=== PATIENT | female | born 1965 | race Caucasian/White ===

== ENCOUNTER 2021-03-07 08:10 | Emergency (ER) | payer MEDICARE, MEDICAID ==
[~2021-03-07] VITALS: Ht 160 cm; Wt 65.0 kg
--- NOTE | 2021-03-07 08:55 | ED Lower Extremity ---
General Chief Complaint: Lower Extremity Stated Complaint: FELL Nursing Triage Note: PT CO OF FALL SATURDAY AND L KNEE INJURY, STATES KNEE GOES OUT FEEL PAINFUL AND TIGHT Source: patient Exam Limitations: no limitations (EARNEST DISLA STUDENT) History of Present Illness Date Seen by Provider: Mar 07, 2021 Time Seen by Provider: 08:30 Initial Comments Pt presents to ED via private conveyance with complaints of L knee pain. She states that she slipped and fell at home 4 days ago and described twisting her LLE with her L foot moving medially with her knee moving laterally. Denies LOC, hitting her head, lightheadedness/fainting. She has been taking Acetaminophen 1000mg Q6 and applying CBD oil with minimal relief. She started experiencing knee locking since yesterday. She has been able to bear weight and ambulate w/o assistance. Rates her pain 6/10 to her lateral L knee, denies radiation. Denies chest pain, SOB, N/V, fevers/chills. Onset: other (4 days ago, Saturday03/04/21) Severity: moderate Pain/Injury Location: left knee Method of Injury: fell Modifying Factors: Worse With Movement; Improves With Pain Medication, Improves With Other (CBD oil) (EARNEST DISLA STUDENT) Allergies and Home Medications Allergies Coded Allergies: Penicillins (Verified Allergy, Unknown, 03/07/21) Sulfa (Sulfonamide Antibiotics) (Verified Allergy, Unknown, 03/07/21) acetaminophen (Verified Allergy, Unknown, 03/07/21) codeine (Verified Allergy, Unknown, 03/07/21) erythromycin base (Verified Allergy, Unknown, 03/07/21) meperidine (Verified Allergy, Unknown, 03/07/21) oxycodone (Verified Allergy, Unknown, 03/07/21) propoxyphene (Verified Allergy, Unknown, 03/07/21) Patient Home Medication List Home Medication List Reviewed: Yes (EARNEST DISLA STUDENT) Review of Systems Constitutional: No chills, No fever EENTM: No hearing loss, No vision loss Respiratory: No cough, No hemoptysis, No short of breath Cardiovascular: No chest pain, No edema Gastrointestinal: No abdominal pain, No constipation, No diarrhea Genitourinary: No dysuria, No frequency, No hematuria Musculoskeletal: No back pain; joint pain (L lateral knee); No joint swelling Skin: No change in color, No change in hair/nails (EARNEST DISLA RAJENDRA STUDENT) All Other Systems Reviewed Negative Unless Noted: Yes (EARNEST DISLA eVestment STUDENT) Past Djpdfhi-Qikssq-Qpnhqu Hx Patient Social History Tobacco Use?: Yes Tobacco type used: Cigarettes Smoking Status: Current Everyday Smoker Substance use?: No Alcohol Use?: Yes Alcohol Frequency: Rarely (EARNEST DISLA STUDENT) Immunizations Up To Date COVID19 Vaccine 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 oz. kg; 25.00 BMI Method: General Appearance: WD/WN, no apparent distress HEENT: PERRL/EOMI, normal ENT inspection, pharynx normal Neck: non-tender, full range of motion, supple, normal inspection Cardiovascular: normal peripheral pulses, regular rate, rhythm, no edema, no murmur Respiratory: chest non-tender, lungs clear, normal breath sounds, no respiratory distress, no accessory muscle use Gastrointestinal: normal bowel sounds, non tender, soft Back: normal inspection, no CVA tenderness, no vertebral tenderness Hips: bilateral hip non-tender, bilateral hip normal inspection, bilateral hip normal range of motion, bilateral hip no evidence of injury Legs: bilateral leg non-tender, bilateral leg normal inspection, bilateral leg normal range of motion, bilateral leg no evidence of injury Knees: right knee non-tender, right knee normal inspection, right knee normal range of motion, right knee no evidence of injury; left knee bone tenderness (mild tenderness to patella), left knee pain, left knee soft tissue tenderness Ankles: bilateral ankle non-tender, bilateral ankle normal inspection, bilateral ankle normal range of motion, bilateral ankle no evidence of injury Feet: bilateral foot non-tender, bilateral foot normal inspection, bilateral foot normal range of motion, bilateral foot no evidence of injury Neurologic/Tendon: normal sensation, normal motor functions, normal tendon functions, responds to pain, withdraws to pain (L lateral knee tenderness) Neurologic/Psychiatric: no motor/sensory deficits, alert, normal mood/affect, oriented x 3 Skin: normal color, warm/dry Lymphatic: no adenopathy (EARNEST DISLA MED STUDENT) Progress/Results/Core Measures Results/Orders My Orders Orders - JULITO KHAN Knee, Left, 3 Views (03/07/21 08:49) (JULITO KHAN) Vital Signs/I&O 03/07/21 08:25 Temp 36.2 Pulse 71 Resp 18 B/P (MAP) 117/89 (98) (JULITO KHAN) Blood Pressure Mean: 98 Progress Progress Note : Time: 10:33 Progress Note Unable to do a comprehensive knee exam but she does seem to have a little tenderness on her lateral left knee possibly consistent with a partial sprain. She was able to walk and on it. We will do some compression ice elevation and plain films. I attest that I saw this patient alongside the medical student and agree with his documented history, physical exam and review of systems except as otherwise noted. (JULITO KHAN) Diagnostic Imaging Diagonstic Imaging: Xray Plain Films/CT/US/NM/MRI: knee (left) Comments [facility], [place] NAME: VENICE AYALA [facility] REC#: [id number] PT STATUS: REG ER : 1965 PHYSICIAN: JULITO KHAN MD ADMIT DATE: 03/07/21/ER Draft Date of Exam:03/07/21 KNEE, LEFT, 3 VIEWS INDICATION: Left knee pain post fall times approximately 3 days ago. TECHNIQUE: 3 views of the left knee CORRELATION STUDY: None FINDINGS: The joint spaces are maintained. The articular surfaces are smooth and preserved. There is no acute bony abnormality. Soft tissues are unremarkable. IMPRESSION: 1. Negative for acute bony abnormality of the knee. Dictated on workstation # [id number] Dict: 03/07/21920 Trans: 03/07/21921 DO [id number] Interpreted by: PAKO SHARIF DO Electronically signed by: Reviewed: Reviewed by Me (JULITO KHAN) Departure Impression Primary Impression: Sprain of knee Qualified Codes: S83.422A - Sprain of lateral collateral ligament of left knee, initial encounter Disposition: HOME, SELF-CARE Condition: Stable Departure-Patient Inst. Decision time for Depature: 10:35 (JULITO KHAN) Referrals: NO,LOCAL PHYSICIAN (PCP) Primary Care Physician HEATHER TATUM MD Patient Instructions: Knee Sprain (DC), LOCAL PHYSICIAN LIST Add. Discharge Instructions: Use an Pantera bandage or neoprene knee sleeve for compression of your knee to reduce swelling and pain. Ice can be helpful for swelling and pain. Elevating your leg above the level of your heart can also reduce swelling and pain. Continue to bear weight on it as tolerable. Call and follow-up with Dr. TATUM, orthopedic surgery for continued management of your knee pain. I also highly encourage you to follow-up with a primary care doctor. Ibuprofen 800 mg every 8 hours as necessary for pain in your knee. Tylenol 1000 mg every 8 hours as necessary for pain. Topical creams such as icy hot or Biofreeze can also be helpful. All discharge instructions reviewed with patient and/or family. Voiced understanding. Copy Copies To 1: HEATHER TATUM MD, JOHNNY MED STUDENT Mar 07, 2021 08:55 JULITO KHAN Mar 07, 2021 10:36
--- NOTE | 2021-03-07 09:22 | Diagnostic Imaging Report ---
INDICATION: Left knee pain post fall times approximately 3 days ago. TECHNIQUE: 3 views of the left knee CORRELATION STUDY: None FINDINGS: The joint spaces are maintained. The articular surfaces are smooth and preserved. There is no acute bony abnormality. Soft tissues are unremarkable. IMPRESSION: 1. Negative for acute bony abnormality of the knee. Dictated by: Dictated on workstation # [id number]
[2021-03-07 10:45] VITALS: BP 117/89
--- OUTSIDE RECORDS SUMMARY | 2021-03-07 12:42 | XMS REPORT | Clinical Summary ---
Author Author [facility]– [place] Address Unknown Phone Unavailable Care Team Providers Care Warehouse Operations Manager Name Role Phone PCP Unavailable Allergies Comments Active Allergy Reactions Severity Noted Date Cephalexin Rash Low 02/10/2015 Codeine Itching 02/10/2015 Meperidine Itching 02/09/2015 Oxycodone Itching 02/10/2015 Penicillins Itching 02/09/2015 Propoxyphene Itching 02/10/2015 rhabdomyelosis Quetiapine Anaphylaxis High 02/09/2015 Sulfa Antibiotics Itching 02/09/2015 Medications End Date Status Medication Sig Dispensed Refills Start Date Active multivitamin w/minerals Take 1 tablet 0 (CENTRUM) TABS by mouth daily. Active metformin (GLUCOPHAGE) Take 1,000 mg 0 1000 MG tablet by mouth 2 (two) times daily with meals. Active topiramate (TOPAMAX) 100 Take 50 mg by 0 MG tablet mouth 2 (two) times daily. Active rOPINIRole (REQUIP) 1 MG Take 4 mg by 0 tablet mouth daily. Active atenolol (TENORMIN) 100 Take 100 mg 0 MG tablet by mouth daily. Active gabapentin (NEURONTIN) Take 800 mg 0 400 MG capsule by mouth 3 (three) times daily. Active omeprazole (PRILOSEC) 20 Take 20 mg by 0 MG capsule mouth daily. Active aspirin 81 MG EC tablet Take 81 mg by 0 mouth daily. Active lisinopril Take 40 mg by 0 (PRINIVIL,ZESTRIL) 40 MG mouth daily. tablet Active amLODIPine (NORVASC) 5 MG Take 5 mg by 0 tablet mouth 2 (two) times daily. Active albuterol (PROAIR, Inhale 2 0 PROVENTIL, VENTOLIN) 108 puffs into (90 BASE) MCG/ACT inhaler the lungs every 6 (six) hours as needed for Wheezing. Active duloxetine (CYMBALTA) 60 Take 120 mg 0 MG capsule by mouth daily. Active atorvastatin (LIPITOR) 20 Take 20 mg by 0 MG tablet mouth daily. Active zolpidem (AMBIEN) 10 MG Take 10 mg by 0 tablet mouth nightly as needed for Sleep. Active nitroglycerin Place 0.4 mg 0 (NITROQUICK) 0.4 MG SL under the tablet tongue every 5 (five) minutes as needed for Chest pain. Active traMADol (ULTRAM) 50 MG Take 50 mg by 0 tablet mouth 2 (two) times daily. Active hydrOXYzine (ATARAX) 25 Take 1 tablet 90 tablet 0 02/14/201 MG tabletIndications: (25 mg total) 5 Anxiety Neurosis by mouth 3 (Inactive) (three) times daily as needed for Anxiety. Indications: Anxiety Neurosis Active lurasidone 60 MG Take 60 mg by 30 tablet 0 01 TABSIndications: mouth Daily 5 Depressive Phase Bipolar At 1700. Mood Disorder Indications: Depressive Phase of Manic-Depress ion Active potassium chloride Take 1 tablet 14 tablet 0 02/14 (K-DUR,KLOR-CON) 10 MEQ (10 mEq 5 tabletIndications: total) by Hypokalemia mouth 2 (two) times daily. Indications: Low Amount of Potassium in the Blood Active traZODone (DESYREL) 100 Take 1 tablet 30 tablet 0 201 MG tabletIndications: (100 mg 5 Insomnia total) by mouth nightly. Indications: Trouble Sleeping Active Problems Problem Noted Date Bipolar I disorder, most recent episode (or current) depressed, severe, 02/10/2015 without mention of psychotic behavior Resolved Problems Problem Noted Date Resolved Date Suicidal ideation 02/10/2015 02/14/2015 Immunizations Name Administration Dates Next Due Influenza IIV3 PFree 04/03/2014 Pneumococcal Conjugate 04/03/2013 (7-valent) -[facility] Registry Family History Medical History Relation Name Comments Depression Daughter Thyroid disease Daughter No Known Problems Father Depression Mother No Known Problems Son Relation Name Status Comments Daughter Alive Father Alive Mother Alive Son Alive Social History Date Tobacco Use Types Packs/Day Years Used Current Every Day Smoker Cigarettes 1 Smokeless Tobacco: Never Used Comments Alcohol Use Standard Drinks/Week No 0 (1 standard drink = 0.6 o z pure alcohol) Control Partners Comments Sexually Active Never Sex Assigned at Date Recorded Not on file Last Filed Vital Signs Reading Time Taken Comments Vital Sign 119/78 02/14/2015 8:20 AM CDT Blood Pressure 62 02/14/2015 8:19 AM CDT Pulse 36.9 C (98.4 F) 02/14/2015 8:19 AM CDT Temperature 16 02/14/2015 8:19 AM CDT Respiratory Rate 98% 02/14/2015 8:19 AM CDT Oxygen Saturation - - Inhaled Oxygen Concentration 93 kg (205 lb) 02/09/2015 10:23 PM CDT Weight 160 cm (5' 3") 02/09/2015 10:23 PM CDT Height 36.31 02/09/2015 10:23 PM CDT Body Mass Index Plan of Treatment Health Maintenance Due Date Last Done Comments COVID-19 Vaccine (1) 1976 Annual Wellness Visit 1982 Hepatitis C Screening 1982 DTaP,Tdap,and Td Vaccines 1983 (1 - Tdap) MMR Vaccines-Adult 1983 Cervical Cancer Screening 1985 Breast Cancer 2014 Screening-Mammogram Colon Cancer Screening 2014 Zoster Vaccine (1 of 2) 2014 Influenza Vaccine (#1) 2021 04/03/2014 Pneumo-Vaccine: 65+Yrs (1 2029 of 1 - PPSV23) Pneumo-Vaccine: Peds (0-5 Aged Out 04/03/2013 No l onger eligible based on patient's age to Yrs) & At-Risk Patients complete this topic (6-64 Yrs) HIB Vaccines Aged Out No longer eligible based on patient's age to complete this topic IPV Vaccines Aged Out No longer eligible based on patient's age to complete this topic Meningococcal Vaccine Aged Out No longer eligib le based on patient's age to complete this topic Rotavirus Vaccines Aged Out No longer eligible based on patient's age to complete this topic Results Not on filefrom Last 3 Months Insurance Type Payer Benefit Subscriber ID Effective Phone Address Plan / Dates Group Medicare MEDICARE MEDICARE [id number] 2010- [address] [place] [address] [employer] K[employer] 19 [id number] 2015- [address] [employer] Present [address] [place] [address] Advance Directives For more information, please contact: [phone] Date Inactivated Comments Code Status Date Activated Full Code 02/14/2015 9:51 AM 02/14/2015 9:51 AM Full Code 02/09/2015 11:37 PM
--- OUTSIDE RECORDS SUMMARY | 2021-03-07 12:43 | XMS REPORT | Clinical Summary ---
Author Author [facility] Organization [facility] Address Unknown Phone Unavailable Care Team Providers Care Cab Supervisor Name Role Phone BenVinny baca PCP Mamta Macdonald PA-C Unavailable Lars Guerrero MD Unavailable Source Comments Some departments are not documenting in the electronic medical record. If you d o not see the information that you expected, contact Release of Information in [facility] Advise Only Information Management department at [phone] for further assistan ce in locating additional records.[facility] Allergies Comments Active Allergy Reactions Severity Noted Date Amlodipine EDEMA Medium 03/24/2020 Codeine ITCHING Low 03/24/2020 Propoxyphene ITCHING Low 03/24/2020 Meperidine ITCHING Low 03/24/2020 Erythra-Derm ITCHING Low 03/24/2020 Erythromycin NAUSEA AND Low 10/31/2020 VOMITING Cephalexin ITCHING Low 03/24/2020 Oxycodone ITCHING Low 03/24/2020 Penicillins ITCHING Low 03/24/2020 Makes mouth raw Pineapple SEE COMMENTS Low 10/20/2020 Pregabalin EDEMA Medium 03/24/2020 Sulfa (Sulfonamide RASH Medium 03/24/2020 Antibiotics) Oxycodone-Acetaminophen ITCHING Low 2019 Medications End Date Status Medication Sig Dispensed Refills Start Date Active aspirin 81 mg chewable Chew 81 mg by 0 tablet mouth daily. Take with food. Active Rc-P2-Xiy-Wftj-Rst-Iddi-B Take by 0 or [phone] mouth. qq-qhvh-th-mg tab Active clonazePAM (KLONOPIN) 1 Take 1 mg by 0 mg tablet mouth twice daily as needed. Active lamoTRIgine (LAMICTAL) Take 300 mg 0 150 mg tablet by mouth daily. Active vitamins, multiple cap Take 1 0 capsule by mouth daily. Active traZODone (DESYREL) 150 Take 300 mg 0 mg tablet by mouth at bedtime daily. Active topiramate (TOPAMAX) 100 Take one 180 tablet 3 1 mg tablet tablet by 0 mouth twice daily. Active atorvastatin (LIPITOR) 10 Take one 90 tablet 3 mg tablet tablet by 1 mouth at bedtime daily. Active meloxicam (MOBIC) 15 mg Take one 90 tablet 3 tablet tablet by 1 mouth daily. Active fluoxetine HCl Take 40 mg by 0 (FLUOXETINE PO) mouth daily. Active rOPINIRole (REQUIP) 3 mg TAKE 1 TABLET 90 tablet 3 tablet BY MOUTH 1 DAILY AT BEDTIME Active metFORMIN (GLUCOPHAGE) TAKE 1 TABLET 180 tablet 1 0 1,000 mg tablet BY MOUTH 1 TWICE DAILY WITH MEALS Active lisinopriL (ZESTRIL) 2.5 Take one 90 tablet 3 0 mg tabletIndications: tablet by 1 hypertension mouth daily. Indications: high blood pressure Active potassium chloride Take two 270 capsule 3 10/18/ 02 (MICRO-K) 10 mEq capsule capsules by 1 mouth three times daily. Take with a meal and a full glass of water. Active vit A/C/E ac/ZnOx/cupric Take by 0 oxide (EYE VITAMIN AND mouth. MINERALS PO) Active ascorbic acid (VITAMIN C Take 1,000 mg 0 PO) by mouth. Active metoprolol XL (TOPROL XL) TAKE 1 TABLET 90 tablet 3 50 mg extended release BY MOUTH 1 tablet EVERY DAY Active pantoprazole DR TAKE 1 TABLET 180 tablet 0 01/18/20 2 (PROTONIX) 40 mg tablet BY MOUTH 1 TWICE DAILY FOR GERD Active cariprazine (VRAYLAR) 1.5 Take 1.5 mg 0 mg cap by mouth three times weekly. Active Problems Problem Noted Date Easy bruising 02/03/2021 Last Assessment & Plan: Formatting of this note might be differ ent from the original. She complained briefly of easy bruising so I am ordering a CBC. Gastritis and duodenitis 10/31/2020 Diverticulosis large intestine w/o perforation or abs cess w/o bleeding 10/31/2020 Ingrown toenail of right foot 10/28/2020 Last Assessment & Plan: Formatting of this note might be differ ent from the original. She complains that her great toenail on the right foot seems to be growing inward, causing discomfort. There is n o swelling or erythema so I do not think there is actually a fully ingrown toenail but I did recommend evaluation by podiatry. She has seen Salvador Booker in the past and will call to schedule follow-up. Poor appetite 10/20/2020 Early satiety 10/20/2020 History of esophagitis 10/20/2020 Irritable bowel syndrome with both constipation and d iarrhea 10/20/2020 Umbilical hernia without obstruction and without gang gallito 10/20/2020 Hepatic steatosis 10/20/2020 Acute bilateral low back pain with bilateral sciatica 10/03/2020 Last Assessment & Plan: Formatting of this note might be differ ent from the original. Back pain is largely resolved. She is doing excellent. Osteopenia of neck of left femur 07/29/2020 Overview: Formatting of this note might be differ ent from the original. Due for repeat 04/2021 L ast Assessment & Plan: Formatting of this note might be differ ent from the original. She will be due for DEXA scan later on this year. I will order at a later date. GERD without esophagitis 07/29/2020 Last Assessment & Plan: Formatting of this note might be differ ent from the original. I am increasing pantoprazole to twice d aily. If her symptoms do not improve she will need referral for repe at endoscopy. Epigastric pain 07/29/2020 Last Assessment & Plan: Formatting of this note might be differ ent from the original. I recommended that she try decreasing p antoprazole to daily and see how she does. Seasonal allergic rhinitis due to pollen 03/24/2020 Last Assessment & Plan: Formatting of this note might be differ ent from the original. Start flonase nasal spray and zyrtec ov er the counter according to package directions. Follow up if symptoms pers ist or worsen. Essential hypertension Last Assessment & Plan: Formatting of this note might be differ ent from the original. Blood pressure looks great. Type 2 diabetes mellitus without compli cation Last Assessment & Plan: Formatting of this note might be differ ent from the original. She is under excellent control. I did recommend that she begin checking an occasional blood sugar to make sure santiago t her blood sugars do not spike up. I think she will likely do fine off of the Ozempic. Mixed hyperlipidemia Last Assessment & Plan: Formatting of this note might be differ ent from the original. Cholesterol looks good on today's lab. Resolved Problems Problem Noted Date Resolved Date Abdominal pain, generalized 10/20/2020 02/03/2021 Weight loss, unintentional 10/03/2020 02/03/2021 Last Assessment & Plan: Formatting of this note might be differ ent from the original. Her Ozempic certainly could be contribu ting to her weight loss, and her A1c does not necessarily need to be 5.3. A s mentioned above, if her A1c is still very good then I will decrease Oz empic down to 0.5 mg weekly. Viral syndrome 08/12/2020 10/03/2020 Suspected COVID-19 virus infection 08/10/2020 Last Assessment & Plan: Formatting of this note might be differ ent from the original. I am ordering a COVID-19 test. I did r ecommend that she try Zyrtec-D or similar for ear pain, which is likely d ue to to eustachian tube dysfunction. Nausea 08/10/2020 10/03/2020 Last Assessment & Plan: Formatting of this note might be differ ent from the original. I am sending a prescription for antieme tic. Hypotension 06/12/2020 07/28/2020 Impacted cerumen, right ear 04/08/2020 02/03/2021 Imbalance 03/24/2020 10/03/2020 Overview: Formatting of this note might be differ ent from the original. Possibly related to medications L ast Assessment & Plan: Formatting of this note might be differ ent from the original. Improved with changes in medications. Anemia 07/28/2020 Encounters Care Team Description Date Type Specialty Vinny Poon DO 02/03/2021 Hospital Lab Encounter Vinny Poon, Type 2 diabetes mellitus without complic ation, without long-term current use of insulin (HCC) (Primary Dx); Essential hypertension; Mixed hyperlipidemia; Epigastric pain; Easy bruising; Acute bilateral low back pain with bilateral sciatica 02/03/2021 Office Visit Family Medicine 02/03/2021 Travel Vinny Poon, DO 01/24/2021 Hospital Lab Encounter 01/24/2021 Travel Vinny Poon, DO 01/17/2021 Refill Family Medicine Vinny oPon, DO 01/16/2021 Refill Family Medicine Vinny Poon, DO 01/15/2021 Refill Family Medicine Vinny Poon, DO Follow-up Phone Call (moving and needing Provider suggestions) 01/05/2021 Telephone Family Medicine from Last 3 Months Immunizations Name Administration Dates Next Due COVID-19 (MODERNA), mRNA 07/27/2020 vacc, 100 mcg/0.5 mL (PF) Flu Vaccine =>6 Months 04/15/2020 Quadrivalent PF Flu vaccine, inj 04/23/2014, 04/03/2014, , 04/04/2012, unspecified (Historical) 03/23/2011, 05/16/2010, , 05/24/2008 Flu vaccine, nasal 04/22/2019 unspecified (Historical) HEPATITIS B vaccine, 04/04/2012 unspecified (Historical) Hepatitis A vaccine, 04/04/2012 unspecified (Historical) Pneumococcal Vaccine 12/30/2007 (23-Suz[facility] Adult) Pneumococcal Vaccine 04/03/2013 (7-[facility] Peds) Tdap Vaccine 04/15/2020, 02/04/2012 Surgical History Surgery Date Site/Laterality Comments COLONOSCOPY 09/01/[address] Sharma at [facility] - normal, repeat in 10 years. UPPER GASTROINTESTINAL 09/01/2018 Zachary esophagit is ENDOSCOPY APPENDECTOMY CERVICAL FUSION HYSTERECTOMY 01/12/1990 with BSO, stopped H RT 2005 TUBAL LIGATION HX HYSTERECTOMY CHOLECYSTECTOMY LUMBAR FUSION L4, 5, aned S1 UPPER GASTROINTESTINAL 10/31/2020 Mouth/N/A [place] re, focal gastritis, mild chronic ENDOSCOPY esophagitis COLONOSCOPY 10/31/2020 Anus/N/A jose Guerrero al Medical History Medical History Date Comments Fibromyalgia Mixed hyperlipidemia Essential hypertension Bipolar 2 disorder (HCC) Anxiety Depression Borderline personality disorder (HCC) Heart murmur PTSD (post-traumatic stress disorder) Meralgia paraesthetica Cervical myelopathy (HCC) Restless leg syndrome Macular degeneration Type 2 diabetes mellitus without complication (HCC) Osteopenia last DEXA 04/2019 Cataracts, bilateral Family History Medical History Relation Name Comments Cystic Fibrosis Brother Cancer-Hematologic Father possibly from [place] Thyroid Disease Mother details unknown Cancer-Breast Sister Relation Name Status Comments Brother Father Alive Mother Alive Sister Social History Date Tobacco Use Types Packs/Day Years Used Current Every Day Smoker Cigarettes 1 Smokeless Tobacco: Never Used Comments: Trying to quit Comments Alcohol Use Standard Drinks/Week Yes 1 (1 standard drink = 0.6 o z pure alcohol) Sex Assigned at Date Recorded Female 10/24/2020 10:39 AM CDT Last Filed Vital Signs Reading Time Taken Comments Vital Sign 132/72 02/03/2021 8:24 AM CDT Blood Pressure 63 02/03/2021 8:24 AM CDT Pulse 36.5 C (97.7 F) 02/03/2021 8:24 AM CDT Temperature 19 02/03/2021 8:24 AM CDT Respiratory Rate 97% 02/03/2021 8:24 AM CDT Oxygen Saturation - - Inhaled Oxygen Concentration 65.4 kg (144 lb 2 oz) 02/03/2021 8:24 AM CDT Weight 160 cm (5' 3") 02/03/2021 8:24 AM CDT Height 25.53 02/03/2021 8:24 AM CDT Body Mass Index Plan of Treatment Health Maintenance Due Date Last Done Comments MEDICARE ANNUAL WELLNESS 1964 VISIT HIV SCREENING 1979 DILATED EYE EXAM 1982 FOOT EXAM 1982 HEPATITIS C SCREENING 1982 PHYSICAL (COMPREHENSIVE) 1982 EXAM SHINGLES RECOMBINANT 2014 VACCINE (1 of 2) INFLUENZA VACCINE 04/21/2021 04/15/2020, 04/22/2019, 04/23/2014, Additional history exists OSTEOPOROSIS 04/28/2021 04/28/2019 SCREENING/MONITORING ([facility] w/doc), 04/28/2019, 04/28/2019 BREAST CANCER SCREENING 05/09/2021 05/09/2020 HBA1C 07/27/2021 01/24/2021, 10/28/2020, 2020, Additional history exists DTAP/TDAP VACCINES (3 - 04/15/2030 04/15/2020, Td or Tdap) 02/04/2012 COLORECTAL CANCER 10/31/2030 10/31/2020, SCREENING 09/01/2018 ([facility] w/doc), 09/01/2018, Additional history exists PNEUMONIA VACCINE (DM) Completed 12/30/2007 COVID-19 VACCINE Completed 10/06/2020, 07/27/2020 Procedures Comments Procedure Name Priority Date/Time Associated Diag nosis HC CBC W/ AUTOMATED DIFF Routine 02/03/2021 Easy bruising 9:19 AM CDT HC Routine 01/24/2021 Mixed hyperlipi demia LIPID-5:CHOL/TRG/HDL/LDL+ 7:13 AM CDT VLDL HC HEMOGLOBIN A1C Routine 01/24/2021 Type 2 diabe marquis mellitus 7:13 AM CDT without complication, without long-term current use of insulin (HCC) from Last 3 Months Results * CBC AND DIFF (02/03/2021 9:19 AM CDT) White Blood 6.4 4.5 - 11.0 K/UL [place] Cells [facility] RBC 4.45 4.0 - 5.0 M/UL [facility] Hemoglobin 13.6 12.0 - 15.0 GM/DL [facility] Hematocrit 42.0 36 - 45 % [facility] MCV 94.4 80 - 100 FL [facility] MCH 30.6 26 - 34 PG [facility] MCHC 32.4 32.0 - 36.0 G/DL [facility] RDW 12.2 11 - 15 % [facility] Platelet Count 157 150 - 400 K/UL [facility] MPV 10.0 7 - 11 FL [facility] Neutrophils 65 41 - 77 % [facility] Lymphocytes 25 24 - 44 % [facility] Monocytes 7 4 - 12 % [facility] Eosinophils 3 0 - 5 % [facility] Basophils 0 0 - 2 % [facility] Absolute 4.23 1.8 - 7.0 K/UL [facility] Absolute Lymph 1.57 1.0 - 4.8 K/UL [place] Count [facility] Absolute 0.42 0 - 0.80 K/UL [place] Monocyte Count [facility] Absolute 0.18 0 - 0.45 K/UL [place] Eosinophil [facility] Absolute 0.02 0 - 0.20 K/UL [place] Basophil Count [facility] Specimen Blood Performing Organization Address City/State/ZIP Code P fredrick Number [facility] [address] [place] [address] [phone] HOSPITAL * HEMOGLOBIN A1C (01/24/2021 7:13 AM CDT) Hemoglobin A1C 5.3 4.0 - 6.0 % [facility] Specimen Blood Performing Organization Address City/State/ZIP Code P fredrick Number [facility] [address] [place] [address] [phone] HOSPITAL * LIPID PROFILE (01/24/2021 7:13 AM CDT) Cholesterol 144 <200 MG/DL [facility] Triglycerides 131 <150 MG/DL [facility] HDL 54 >40 MG/DL [facility] LDL 62 <100 mg/dL [facility] VLDL 26 MG/DL [facility] Non HDL 90 MG/DL [place] Cholesterol Comment: [facility] Calculated non-HDL Cholesterol HOSPITAL (non-HDL-C) indirectly measures LDL-C, Lp(a), IDL-C, and VLDL-C. It is a surrogate marker for Apoprotein B. Goal should be less than 130 mg/dL. Specimen Blood Performing Organization Address City/State/ZIP Code P fredrick Number [facility] [address] [place] [address] [facility] from Last 3 Months Insurance Type Payer Benefit Subscriber ID Effective Phone Address Plan / Dates Group Medicare MEDICARE MEDICARE [id number] 2010- PART A AND Present B AETNA MEDICAID AETNA [id number] 2018-P [employer] [place] Advance Directives Patient Ict Support Technicians Explanation Type Date Recorded Advance Directive/DPOA Advance 06/12/2020 2:29 PM Directive/DPOA
--- OUTSIDE RECORDS SUMMARY | 2021-03-07 12:43 | XMS REPORT | Encounter Summary ---
Author Author [facility] Organization [facility] Address Unknown Phone Unavailable Care Team Providers Care Dry Kiln Burner Name Role Phone Vinny Poon DO PCP Mamta Macdonald PA-C Unavailable Reason for Visit * Reason Comments Medication Refill Encounter Details Care Team Description Date Type Department Vinny Poon DO [address] [place] [id number] 01/17/2021 Refill Family Medicine: [facility] [address] [address] Social History Date Tobacco Use Types Packs/Day Years Used Current Every Day Smoker Cigarettes 1 Smokeless Tobacco: Never Used Comments: Trying to quit Comments Alcohol Use Standard Drinks/Week Yes 1 (1 standard drink = 0.6 o z pure alcohol) Sex Assigned at Date Recorded Female 10/24/2020 10:39 AM CDT documented as of this encounter Functional Status Date of Assessment Functional Status Response 10/03/2020 Does the patient have a hearing impairment: No 10/03/2020 Does the patient have a visual impairment: Yes 10/03/2020 Does the patient have impaired ambulation: Yes 10/03/2020 Does the patient have an activity of daily living Ye s (ADL) impairment: 10/03/2020 Does the patient have an instrumental activity of No daily living (IADL) impairment: Date of Assessment Cognitive Status Response 10/03/2020 Does the patient have a cognitive impairment: No documented as of this encounter Ordered Prescriptions Start Date End Date Prescription Sig Dispensed Refills 01/17/[address] TAKE 1 TABLET 180 tablet 0 (PROTONIX) 40 mg tablet BY MOUTH TWICE DAILY FOR GERD documented in this encounter Miscellaneous Notes * Telephone Encounter - Gabi Arizmendi LPN - 01/17/2021 11:30 AM CDT Medication filled per protocol. documented in this encounter Plan of Treatment Not on filedocumented as of this encounter Visit Diagnoses Not on filedocumented in this encounter Discontinued Medications Start Date End Date Medication Sig Discontinue Reason 01/16/2021 01/17/2021 pantoprazole TAKE 1 (PROTONIX) 40 mg tablet TABLET BY MOUTH TWICE DAILY FOR GERD documented as of this encounter Additional Health Concerns Assessment Noted Time PHQ-9 Depression Total Score: 9 07/29/2020 10:03 AM NODE JS DEVELOPER PHQ-2 Depression Total Score: 2 10/28/2020 11:38 AM CDT documented as of this encounter
--- OUTSIDE RECORDS SUMMARY | 2021-03-07 12:43 | XMS REPORT | Encounter Summary ---
Author Organization Unknown Address [address] [place] [address] Phone [phone] Reason for Visit None recorded. Instructions 1. Bipolar disorder clonazepam 1 mg tablet lamotrigine 200 mg tablet trazodone 150 mg tablet Vraylar 1.5 mg capsule Discussion Note Follow up with new provider in [place], [place] Patient educational handouts: No information available. Plan of Care Patient Instructions Risks, benefits potential AEs discussed with the patient who assumed risk. The patient was advised to go to the nearest ER or call [phone] if suicidal. Reminders Provider Appointments None recorded. Lab None recorded. Referral None recorded. Procedures None recorded. Surgeries None recorded. Imaging None recorded. Medications Name Start Date Samia Allergy Asprin Ec Low Dose 81 mg tablet,delayed release Take 1 tablet every day by oral route. atorvastatin 10 mg tablet TAKE 1 TABLET BY MOUTH DAILY AT BEDTIME calcium clonazepam 1 mg tablet TAKE 1 TABLET BY MOUTH EVERY DAY NEEDED FOR SEVERE ANXIETY cyclobenzaprine 10 mg tablet diazepam 10 mg tablet TAKE 1 TABLET BY MOUTH EVERY DAY AT BEDTIME diltiazem CD 120 mg capsule,extended release 24 hr fluoxetine 40 mg capsule TAKE 1 CAPSULE BY MOUTH EVERY NIGHT AT BEDTIME FOR DEPRESSION lamotrigine 200 mg tablet TAKE 1 AND 1/2 TABLETS BY MOUTH DAILY lisinopril 2.5 mg tablet TAKE 1 TABLET BY MOUTH DAILY FOR HIGH BLOOD PRESSURE lisinopril 20 mg-hydrochlorothiazide 12.5 mg tablet meloxicam 15 mg tablet TAKE 1 TABLET BY MOUTH DAILY metformin 1,000 mg tablet TAKE 1 TABLET BY MOUTH TWICE DAILY WITH MEALS metoprolol succinate ER 50 mg tablet,ext ended release 24 hr TAKE 1 TABLET BY MOUTH EVERY DAY multivitamin nystatin 100,000 unit/gram topical ointment pantoprazole 40 mg tablet,delayed releas e TAKE 1 TABLET BY MOUTH TWICE DAILY FOR GERD potassium chloride ER 10 mEq capsule,ext ended release TAKE 2 CAPSULES BY MOUTH THREE TIMES DAILY WITH A MEAL AND A FULL GLASS OF WATER promethazine 25 mg tablet TAKE 1 TABLET BY MOUTH EVERY 6 HOURS NEEDED FOR NAUSEA OR VOMITING ropinirole 3 mg tablet TAKE 1 TABLET BY MOUTH DAILY AT BEDTIME Saline [place] topiramate 100 mg tablet TAKE 1 TABLET BY MOUTH TWICE DAILY trazodone 150 mg tablet Take 1- 2 tablets po Q HS prn insomnia Vitamin C 1,000 mg tablet 1 tablet 3 times daily Vraylar 1.5 mg capsule TAKE 1 CAPSULE BY MOUTH 3 TIMES A WEEK Zyrtec 10 mg tablet Take 1 tablet every day by oral route as directed. Medications Administered None recorded. Vitals Height Weight BMI Blood Pressure 5 ft 5 in 145.8 lbs 24.3 kg/m2 132/84 mm[Hg] Results Lab Results None recorded. Allergies Code Code System Name Reaction Severity Status Onset RxNorm Azithromycin Active 2670 RxNorm Codeine Active 972895 RxNorm Demerol Active 033969 RxNorm Diovan Active 147442 RxNorm Keflex Active 916697 RxNorm Lyrica Active 7804 RxNorm Oxycodone Active Penicillins Active 22107 RxNorm Percocet Active Sulfa (Sulfonamide Antibiotics) Active Problems None recorded. Procedures None recorded. Vaccine List None recorded. Social History Tobacco Smoking Status Heavy Tobacco Smoker (1 pack per a da y) Past Encounters Encounter Date Diagnosis Provider 02/09/2021 Bipolar Disorder Jose Chu MD : [address] [place] [id number], Ph. [phone] 02/01/2021 Anxiety Disorder; Chronic Po st-traumatic Stress Disorder; Bipolar II Disorder Valeri Bose [facility]: [address] [place] [address], Ph. [phone] 01/13/2021 Anxiety Disorder; Chronic Po st-traumatic Stress Disorder; Bipolar II Disorder BALBINA Ibrahim, [facility]: [address] [place] [address], Ph. [phone] History of Present Illness Note:<div>The patient is moving to [place], [place] and she is doing well. she noted that she has been having trouble sleeping and she added Trazodone a month ago and is tolerating it. mood is euthymic and stable. no complaints. she denied SI. </div> Review of Systems:ROS as noted in the HPI Review of Systems None recorded. Physical Exam None recorded.
--- OUTSIDE RECORDS SUMMARY | 2021-03-07 12:43 | XMS REPORT | Encounter Summary ---
Author Organization Unknown Address [address] [place] [id number] Phone [phone] Reason for Visit Progress Note Instructions 1. Anxiety disorder 2. Chronic post-traumatic stress disorde r 3. Bipolar II disorder Discussion Note: None recorded. Patient educational handouts: No information available. Plan of Care Reminders Provider Appointments Return to Office on or around 01/19/2021 Jose Chu MD Therapy 60 Min. 02/01/2021 11:00AM BALBINA Bran [facility] Therapy 60 Min. 02/10/2021 11:00AM BALBINA Bran [facility] Lab None recorded. Referral None recorded. Procedures [...] MOUTH EVERY NIGHT AT BEDTIME FOR DEPRESSION gabapentin 800 mg tablet TAKE 1 TABLET BY MOUTH THREE TIMES DAILY FOR NERVE PAIN lamotrigine 200 mg tablet TAKE 1 AND 1/2 TABLETS BY MOUTH DAILY lisinopril 10 mg tablet lisinopril 2.5 mg tablet TAKE 1 TABLET BY MOUTH DAILY FOR HIGH BLOOD PRESSURE lisinopril 20 mg-hydrochlorothiazide 12.5 mg tablet meloxicam 15 mg tablet TAKE 1 TABLET BY MOUTH DAILY metformin 1,000 mg tablet TAKE 1 TABLET BY MOUTH TWICE DAILY WITH MEALS metoprolol succinate ER 100 mg tablet,extended release 24 hr metoprolol succinate ER 50 mg tablet,ext ended release 24 hr TAKE 1 TABLET BY MOUTH EVERY DAY multivitamin nystatin 100,000 unit/gram topical ointment Ozempic 0.25 mg or 0.5 mg (2 mg/1.5 mL) subcutaneous pen injector INJECT 0.5MG SUBCUTANEOUS EVERY 7 DAYS. Ozempic 1 mg/dose (2 mg/1.5 mL) subcutan eous pen injector INJECT 1MG SUBCUTANEOUS EVERY 7 DAYS pantoprazole 40 mg tablet,delayed releas e TAKE 1 TABLET BY MOUTH TWICE DAILY FOR GERD potassium chloride ER 10 mEq capsule,ext ended release TAKE 2 CAPSULES BY MOUTH THREE TIMES DAILY WITH A MEAL AND A FULL GLASS OF WATER potassium chloride ER 20 mEq tablet,extended release potassium chloride ER 20 mEq tablet,extended release(p art/cryst) promethazine 25 mg tablet TAKE 1 TABLET BY MOUTH EVERY 6 HOURS NEEDED FOR NAUSEA OR VOMITING ropinirole 3 mg tablet TAKE 1 TABLET BY MOUTH DAILY AT BEDTIME Saline [place] topiramate 100 mg tablet TAKE 1 TABLET BY MOUTH TWICE DAILY trazodone 150 mg tablet TAKE 2 TABLETS BY MOUTH EVERY DAY Vitamin C 1,000 mg tablet 1 tablet 3 times daily Vraylar 1.5 mg capsule TAKE 1 CAPSULE BY MOUTH 3 TIMES A WEEK Zyrtec 10 mg tablet Take 1 tablet every day by oral route as directed. Medications Administered None recorded. Vitals None recorded. Results Lab Results None recorded. Allergies Code Code System Name Reaction Severity Status Onset 41882 RxNorm Azithromycin Active 2670 RxNorm Codeine Active 953040 RxNorm Demerol Active 350294 RxNorm Diovan Active 060383 RxNorm Keflex Active 448761 RxNorm Lyrica Active 7804 RxNorm Oxycodone Active Penicillins Active 49102 RxNorm Percocet Active Sulfa (Sulfonamide Antibiotics) Active Problems None recorded. Procedures None recorded. Vaccine List None recorded. Social History Tobacco Smoking Status Heavy Tobacco Smoker (1 PPD) Past Encounters Encounter Date Diagnosis Provider 01/13/2021 Anxiety Disorder; Chronic Po st-traumatic Stress Disorder; Bipolar II Disorder BALBINA Ibrahim, [facility]: [address] [place] [address], Ph. [phone] 12/16/2020 Anxiety Disorder; Chronic Po st-traumatic Stress Disorder; Bipolar II Disorder BALBINA Ibrahim, [facility]: [address] [place] [address], Ph. [phone] History of Present Illness BH General Assessment Reported By: Patient Emotional symptoms:: Depression: depression, leth argy, loss of libido, pessimism, feelings of helplessness, feelings of hopelessness. Suicidal and/or passive thoughts of : denied thoughts of life not worth living, denied passive wishes, denied current suicidal ideation, plan or intent to take own life, denied history of suicidal ideation, plan or intent to take own life. Homicidal Ideation: denied homicidal ideations, plan or intent to harm others, denied history of homicidal ideations, plan or intent to harm others, no history of assaulting other person. Mood lessening sleep, irritable, impulsive spending, unfinished projects, unable to pay attention, appetite problem; Has a hard time staying asleep. She is having a hard time wanting to eat. Sleep Disturbance: fragmented. Anxiety: anxious, worry, difficulty concentrating, high irritability, sleep disturbances, restlessness. Obsessive Compulsive Disorder: organizing, symmetry; Things need to be perfect. Post Traumatic Stress Disorder: witness to trauma/assault/abuse. Psychosis: paranoid ideations, paranoid delusions; The client has thoughts that things are going to go wrong and can not get it out of her head. Borderline Personality Disorder: no self-injury, no cutting, no foreign object insertion. Eating Disorders: decreased appetite. Therapeutic Interventions (normal) treatment response compliance with therapy: medications: intentional underdosing of medication regimen, compliance with oral medication is good. Lifestyle Habits difficulty making friends. Abuse / Neglect no violence Review of Systems None recorded. Physical Exam Mental Status Reported By: Patient Psychiatric Exam: General Appearance: alert, w ell-groomed, well developed, clean, appears well rested. Behavior: eye contact is good, cooperative, appears engaged, not impulsive, calm, not guarded. Mood: euthymic. Affect: appropriate. Thought Processes: associations are logical. Judgment: is intact. Insight: is intact Neurological System: Orientation: oriented to maggie e, place, and person. Memory: immediate recall is intact, remembers 3 of 3 items after short period, remote memory is intact, did not show word retrieval difficulty. Fund of Knowledge: shows broad fund of knowledge, shows at least average vocabulary. Speech: speech is articulate and coherent, volume is increased
--- OUTSIDE RECORDS SUMMARY | 2021-03-07 12:43 | XMS REPORT | Encounter Summary ---
Author Author [facility] Organization [facility] Address Unknown Phone Unavailable Care Team Providers Care [employer] Name Role Phone AyahVinny George BELTRAN PCP Mamta Macdonald PA-C Unavailable Reason for Visit * Reason Comments Follow Up Pt. is here for 3 month fol low up on A1C. Pt. states that she wants to review her medications. Pt. states that she quit taking gabapentin and ozempic 2 weeks ago; pt states that she doesn't think either meds were helping. Encounter Details Care Team Description Date Type [place] [address] [place] [id number] Type 2 diabetes mellitus without complic ation, without long- term current use of insulin (HCC) (Primary Dx); Essential hypertension; Mixed hyperlipidemia; Epigastric pain; Easy bruising; Acute bilateral low back pain with bilateral sciatica 02/03/2021 Office Visit Family Medicine: [facility] [address] [place] [id number] Social History Date Tobacco Use Types Packs/Day Years Used Current Every Day Smoker Cigarettes 1 Smokeless Tobacco: Never Used Comments: Trying to quit Comments Alcohol Use Standard Drinks/Week Yes 1 (1 standard drink = 0.6 o z pure alcohol) Sex Assigned at Date Recorded Female 10/24/2020 10:39 AM CDT Date Recorded COVID-19 Exposure Response 02/03/2021 8:09 AM CDT In the last month, have you been in contact with No / Unsure someone who was confirmed or suspected to have Coronavirus / COVID-19? documented as of this encounter Last Filed Vital Signs Reading Time Taken [...] 02/03/2021 8:24 AM CDT Body Mass Index documented in this encounter Functional Status Date of Assessment [...] impairment: No documented as of this encounter Progress Notes * Vinny Poon, - 02/03/2021 8:30 AM CDT Date of Service: 02/03/2021 History of Present Illness She presents for follow up on diabetes. Goal A1c: <7% Control Status: Controlled Complications: none MVN Diabetic Meds and Insulin: metformin Meds Changed Last Visit: none Medications Discontinued Last visit: patient stopped Ozempic two weeks ago. Accu-chek frequency: doesn't check blood sugars Frequency off hypoglycemia: she might feel low once per week but does not actual ly check Last A1C: Lab Results Component Value Date/Time HGBA1C 5.3 01/24/2021 07:13 AM HGBA1C 5.3 10/28/2020 12:17 PM HGBA1C 5.3 2020 08:29 AM HGBA1C 5.3 01/26/2020 12:00 AM Last urine microalbumin/creatinine ratio: Lab Results Component Value Date/Time URMALBCRRAT 0.45 07/29/2020 10:39 AM Urine albumin/creatinine ratio was 5 on 07/23/19. Lab Results Component Value Date LDL 62 01/24/2021 PARIS/ARB: Yes Statin: Yes ASA: Yes Pneumococcal Vaccination - PCV13: Up-to-date. - PPSV23: Up-to-date. Patient presents for follow up on hypertension. Blood Pressure Medications: lisinopril and metoprolol Medication changes previous visit: none Medication compliance: good Side Effects? No Outside blood pressures being performed - No BP Readings from Last 4 Encounters: 02/03/21 132/72 11/08/20 (!) 143/85 10/31/20 (!) 143/104 10/28/20 128/70 She presents for follow up on Mixed Hyperlipidemia. Current cholesterol meds: atorvastatin Recent medication changes: none Lab Results Component Value Date/Time CHOL 144 01/24/2021 07:13 AM CHOL 140 2020 08:29 AM LDL 62 01/24/2021 07:13 AM LDL 76 2020 08:29 AM HDL 54 01/24/2021 07:13 AM HDL 41 2020 08:29 AM TRIG 131 01/24/2021 07:13 AM TRIG 192 (H) 2020 08:29 AM TG's were 152 a year ago. She denies any dietary changes. Previous vascular complications: no previous vascular complications Vascular risk factors include: diabetes and hypertension Patient states that she is doing very well. She has completed physical therapy for her low back pain and has continued with massage therapy. She has been in t he process of moving so she is having a small degree of back pain but overall is doing excellent. She is no longer taking gabapentin, and has not noticed a aron nge from stopping it 2 weeks ago. She is also no longer on Dilaudid. She state s it was not really terribly effective but also she does not even need it at thi s point in time. She is moving to [place], [place] in the near future and will be establishing with a provider there. She was previously having epigastric pain and I increased her pantoprazole up to twice daily. She subsequently had an EGD and colonoscopy with johnny Delgadillo the only abnormality having been focal gastritis. She thinks that the gastr itis was due to taking her pills on an empty stomach, and she has stopped doing that. She does take meloxicam for her pain. She continues on the twice daily p antoprazole. Review of Systems Constitutional: Negative for chills and fever. Respiratory: Negative for shortness of breath. Cardiovascular: Negative for chest pain. Gastrointestinal: Negative for nausea and vomiting. Past Medical/Social/Surgical History Medical History: Diagnosis Date Anxiety Bipolar 2 disorder (HCC) Borderline personality disorder (HCC) Cataracts, bilateral Cervical myelopathy (HCC) Depression Essential hypertension Fibromyalgia Heart murmur Macular degeneration Meralgia paraesthetica Mixed hyperlipidemia Osteopenia last DEXA 04/2019 PTSD (post-traumatic stress disorder) Restless leg syndrome Type 2 diabetes mellitus without complication ([facility]) Surgical History: Procedure Laterality Date HYSTERECTOMY 01/12/1990 with BSO, stopped HRT 2004 COLONOSCOPY 09/01/[address] Sharma at [facility] - normal, repeat in 10 years. UPPER GASTROINTESTINAL ENDOSCOPY 09/01/2018 [place], esophagitis ESOPHAGOGASTRODUODENOSCOPY WITH BIOPSY - FLEXIBLE N/A 10/31/2020 Performed by Lars Guerrero MD at [facility] OR COLONOSCOPY DIAGNOSTIC WITH SPECIMEN COLLECTION BY BRUSHING/ WASHING - FLEXI BLE N/A 10/31/2020 Performed by Lars Guerrero MD at [facility] OR APPENDECTOMY CERVICAL FUSION CHOLECYSTECTOMY HX HYSTERECTOMY LUMBAR FUSION L4, 5, aned S1 TUBAL LIGATION Social History Socioeconomic History Marital status: Spouse name: Not on file Number of children: 3 Years of education: Not on file Highest education level: Not on file Occupational History Not on file Tobacco Use Smoking status: Current Every Day Smoker Packs/day: 1.00 Types: Cigarettes Smokeless tobacco: Never Used Tobacco comment: Trying to quit Substance and Sexual Activity Alcohol use: Yes Alcohol/week: 1.0 standard drinks Types: 1 Shots of liquor per week Drug use: Never Sexual activity: Not Currently Partners: Male Other Topics Concern Not on file Social History Narrative Not on file Allergies Allergies Allergen Reactions Amlodipine EDEMA Pregabalin EDEMA Sulfa (Sulfonamide Antibiotics) RASH Codeine ITCHING Darvon [Propoxyphene] ITCHING Demerol [Meperidine] ITCHING Erythra-Derm ITCHING Erythromycin NAUSEA AND VOMITING Keflex [Cephalexin] ITCHING Oxycodone ITCHING Pcn [Penicillins] ITCHING Pineapple SEE COMMENTS Makes mouth raw Tylox [Oxycodone-Acetaminophen] ITCHING Medications ascorbic acid (VITAMIN C PO) Take 1,000 mg by mouth. aspirin 81 mg chewable tablet Chew 81 mg by mouth daily. Take with food. atorvastatin (LIPITOR) 10 mg tablet Take one tablet by mouth at bedtime rome bowman [id number]-mg tab Take by mouth. cariprazine (VRAYLAR) 1.5 mg cap Take 1.5 mg by mouth three times weekly. clonazePAM (KLONOPIN) 1 mg tablet Take 1 mg by mouth twice daily as needed. fluoxetine HCl (FLUOXETINE PO) Take 40 mg by mouth daily. lamoTRIgine (LAMICTAL) 150 mg tablet Take 300 mg by mouth daily. lisinopriL (ZESTRIL) 2.5 mg tablet Take one tablet by mouth daily. Indicatio ns: high blood pressure meloxicam (MOBIC) 15 mg tablet Take one tablet by mouth daily. metFORMIN (GLUCOPHAGE) 1,000 mg tablet TAKE 1 TABLET BY MOUTH TWICE DAILY MEALS metoprolol XL (TOPROL XL) 50 mg extended release tablet TAKE 1 TABLET BY MARTHA TH EVERY DAY pantoprazole DR (PROTONIX) 40 mg tablet TAKE 1 TABLET BY MOUTH TWICE DAILY F OR GERD potassium chloride (MICRO-K) 10 mEq capsule Take two capsules by mouth three times daily. Take with a meal and a full glass of water. rOPINIRole (REQUIP) 3 mg tablet TAKE 1 TABLET BY MOUTH DAILY AT BEDTIME topiramate (TOPAMAX) 100 mg tablet Take one tablet by mouth twice daily. traZODone (DESYREL) 150 mg tablet Take 300 mg by mouth at bedtime daily. vit A/C/E ac/ZnOx/cupric oxide (EYE VITAMIN AND MINERALS PO) Take by mouth. vitamins, multiple cap Take 1 capsule by mouth daily. Objective: Vitals: 02/03/21 0824 BP: 132/72 BP Source: Arm, Right Upper Patient Position: Sitting Pulse: 63 Resp: 19 Temp: 36.5 C (97.7 F) TempSrc: Temporal SpO2: 97% Weight: 65.4 kg (144 lb 2 oz) Height: 160 cm (63") PainSc: Zero Body mass index is 25.53 kg/m. Physical Exam Constitutional: Appearance: Normal appearance. HENT: Head: Normocephalic and atraumatic. Pulmonary: Effort: Pulmonary effort is normal. Musculoskeletal: General: No swelling. Cervical back: Neck supple. Skin: General: Skin is warm and dry. Neurological: Mental Status: She is alert and oriented to person, place, and time. Psychiatric: Mood and Affect: Mood normal. Behavior: Behavior normal. Thought Content: Thought content normal. Judgment: Judgment normal. Assessment and Plan: Problem List Items Addressed This Visit Type 2 diabetes mellitus without complication (HCC) - Primary (Chronic) She is under excellent control. I did recommend that she begin checking an oc casional blood sugar to make sure that her blood sugars do not spike up. I thin k she will likely do fine off of the Ozempic. Essential hypertension (Chronic) Blood pressure looks great. Mixed hyperlipidemia (Chronic) Cholesterol looks good on today's lab. Acute bilateral low back pain with bilateral sciatica Back pain is largely resolved. She is doing excellent. Epigastric pain I recommended that she try decreasing pantoprazole to daily and see how she do es. Easy bruising She complained briefly of easy bruising so I am ordering a CBC. Relevant Orders CBC AND DIFF No follow-ups on file. documented in this encounter Plan of Treatment Not on filedocumented as of this encounter Results * CBC AND DIFF (02/03/2021 9:19 AM CDT) White Blood 6.4 4.5 - 11.0 K/UL [facility] RBC 4.45 4.0 - 5.0 M/UL [facility] Hemoglobin 13.6 12.0 - 15.0 GM/DL [facility] Hematocrit 42.0 36 - 45 % [facility] MCV 94.4 80 - 100 FL [facility] MCH 30.6 26 - 34 PG [facility] MCHC 32.4 32.0 - 36.0 G/DL [facility] RDW 12.2 11 - 15 % [facility] Platelet Count 157 150 - 400 K/UL [facility] MPV 10.0 7 - 11 FL [facility] Neutrophils 65 41 - 77 % [facility] Lymphocytes 25 24 - 44 % [facility] Monocytes 7 4 - 12 % [facility] Eosinophils 3 0 - 5 % [facility] Basophils 0 0 - 2 % [facility] Absolute 4.23 1.8 - 7.0 K/UL [place] Neutrophil [facility] Count [facility] Absolute Lymph 1.57 1.0 - 4.8 K/UL [place] Count [facility] Absolute 0.42 0 - 0.80 K/UL [place] Monocyte Count [facility] Absolute 0.18 0 - 0.45 K/UL [place] Eosinophil [facility] Absolute 0.02 0 - 0.20 K/UL [place] Basophil [facility] Specimen Blood Performing Organization Address City/State/ZIP Code P fredrick Number [facility] [address] [place] [address] HOSPITAL documented in this encounter Visit Diagnoses Diagnosis Type 2 diabetes mellitus without compli cation, without long-term current use of insulin (HCC) - Primary Essential hypertension Unspecified essential hypertension Mixed hyperlipidemia Epigastric pain Abdominal pain, epigastric Easy bruising Other symptoms involving skin and integ umentary tissues Acute bilateral low back pain with bila teral sciatica * Assessment & Plan Note - Vinny Poon, - 02/03/2021 9:18 AM CDT Associated Problem(s): Easy bruising She complained briefly of easy bruising so I am ordering a CBC. * Assessment & Plan Note - Vinny Poon, - 02/03/2021 9:16 AM CDT Associated Problem(s): Acute bilateral low back pain with bilateral sciatica Back pain is largely resolved. She is doing excellent. * Assessment & Plan Note - Vinny Poon, - 02/03/2021 9:16 AM CDT Associated Problem(s): Mixed hyperlipidemia Cholesterol looks good on today's lab. * Assessment & Plan Note - Vinny Poon, - 02/03/2021 9:16 AM CDT Associated Problem(s): Essential hypertension Blood pressure looks great. * Assessment & Plan Note - Vinny Poon DO - 02/03/2021 9:16 AM CDT Associated Problem(s): Type 2 diabetes mellitus without complication (HCC) She is under excellent control. I did recommend that she begin checking an occa sional blood sugar to make sure that her blood sugars do not spike up. I think she will likely do fine off of the Ozempic. * Assessment & Plan Note - Vinny Poon DO - 02/03/2021 9:05 AM CDT Associated Problem(s): Epigastric pain I recommended that she try decreasing pantoprazole to daily and see how she does . documented in this encounter Discontinued Medications Start Date End Date Medication Sig Discontinue Reason 02/03/2021 albuterol sulfate (PROAIR Inhale 2 HFA) 90 mcg/actuation puffs by aerosol inhaler mouth into the lungs every 6 hours as needed for Wheezing or Shortness of Breath. Shake well before use. 02/03/2021 cariprazine HCl (VRAYLAR Take 1.5 mg PO) by mouth twice weekly. 10/03/2020 02/03/2021 cyclobenzaprine Take one (FLEXERIL) 10 mg tablet by tabletIndications: muscle mouth three spasm times daily as needed for Muscle Cramps. Do not take same day as diazepam or clonazepam Indications: muscle spasm 02/03/2021 diazePAM (VALIUM) 10 mg Take 10 mg tablet by mouth daily. 10/18/2020 02/03/2021 gabapentin (NEURONTIN) Take one 800 mg tabletIndications: tablet by neuropathic pain mouth three times daily. Indications: neuropathic pain 02/03/2021 HYDROmorphone (DILAUDID) Take 2 mg by 2 mg tablet mouth three times daily as needed for Pain This is an old Rx 10/31/2020 02/03/2021 semaglutide (OZEMPIC) Inject 0.25 mg or 0.5 mg(2 one-half mg mg/1.5 mL) injection PEN under the skin every 7 days. documented as of this encounter Historical Medications * This list may reflect changes made after this encounter. Start Date End Date Medication Sig Dispensed Refills cariprazine (VRAYLAR) 1.5 Take 1.5 mg 0 mg cap by mouth three times weekly. added in this encounter Additional Health Concerns Assessment Noted Time PHQ-9 Depression Total Score: 9 07/29/2020 10:03 AM SAP [employer] PHQ-2 Depression Total Score: 1 02/03/2021 8:34 AM CDT documented as of this encounter
--- OUTSIDE RECORDS SUMMARY | 2021-03-07 12:43 | XMS REPORT | Encounter Summary ---
Author Author [facility] Address Unknown Phone Unavailable Care Team Providers Care Chemist Organic Name Role Phone Vinny Poon DO PCP Mamta Macdonald PA-C Unavailable Encounter Details Care Team Description Date Type Department Vinny Poon DO [address] [place] [address] 02/03/2021 Hospital Lab: [facility] [address] [place] [id number] Social History Date Tobacco Use Types [...] / COVID-19? documented as of this encounter Functional Status [...] impairment: No documented as of this encounter Medications at Time of Discharge Start Date End Date Medication Sig Dispensed Refills ascorbic acid (VITAMIN C Take 1,000 mg 0 PO) by mouth. aspirin 81 mg chewable Chew 81 mg by 0 tablet mouth daily. Take with food. 08/12/2020 atorvastatin (LIPITOR) 10 Take one 90 tablet 3 mg tablet tablet by mouth at bedtime daily. Ga-V7-Wzg-Zoga-Aef-Zwpv-B Take by 0 or [phone] mouth. ny-czga-xp-mg tab cariprazine (VRAYLAR) 1.5 Take 1.5 mg 0 mg cap by mouth three times weekly. clonazePAM (KLONOPIN) 1 Take 1 mg by 0 mg tablet mouth twice daily as needed. fluoxetine HCl Take 40 mg by 0 (FLUOXETINE PO) mouth daily. lamoTRIgine (LAMICTAL) Take 300 mg 0 150 mg tablet by mouth daily. 10/18/2020 lisinopriL (ZESTRIL) 2.5 Take one 90 tablet 3 mg tabletIndications: tablet by hypertension mouth daily. Indications: high blood pressure 08/12/2020 meloxicam (MOBIC) 15 mg Take one 90 tablet 3 tablet tablet by mouth daily. 10/18/2020 metFORMIN (GLUCOPHAGE) TAKE 1 TABLET 180 tablet 1 1,000 mg tablet BY MOUTH TWICE DAILY WITH MEALS 11/17/2020 metoprolol XL (TOPROL XL) TAKE 1 TABLET 90 tablet 3 50 mg extended release BY MOUTH tablet EVERY DAY 01/17/[address] TAKE 1 TABLET 180 tablet 0 (PROTONIX) 40 mg tablet BY MOUTH TWICE DAILY FOR GERD 10/18/2020 potassium chloride Take two 270 capsule 3 (MICRO-K) 10 mEq capsule capsules by mouth three times daily. Take with a meal and a full glass of water. 10/04/2020 rOPINIRole (REQUIP) 3 mg TAKE 1 TABLET 90 tablet 3 tablet BY MOUTH DAILY AT BEDTIME 07/11/2020 topiramate (TOPAMAX) 100 Take one 180 tablet 3 mg tablet tablet by mouth twice daily. traZODone (DESYREL) 150 Take 300 mg 0 mg tablet by mouth at bedtime daily. vit A/C/E ac/ZnOx/cupric Take by 0 oxide (EYE VITAMIN AND mouth. MINERALS PO) vitamins, multiple cap Take 1 0 capsule by mouth daily. documented as of this encounter Discharge Disposition Code Departure Means Destination Disposition Home Home or Self Care documented in this encounter Progress Notes * Kierra Martínez LPN - 02/03/2021 9:20 AM CDT Pt read results on my chart and no question documented in this encounter Plan of Treatment Not on filedocumented as of this encounter Procedures Comments Procedure Name Priority Date/Time Associated Diag nosis HC CBC W/ AUTOMATED DIFF Routine 02/03/2021 Easy bruising 9:19 AM CDT documented in this encounter Results * CBC AND DIFF (02/03/2021 9:19 AM CDT) White Blood 6.4 4.5 - 11.0 K/UL AVERY Cells [facility] RBC 4.45 4.0 - 5.0 M/UL [facility] Hemoglobin 13.6 12.0 - 15.0 GM/DL [facility] Hematocrit 42.0 36 - 45 % [facility] MCV 94.4 80 - 100 FL [facility] MCH 30.6 26 - 34 PG [facility] MCHC 32.4 32.0 - 36.0 G/DL [facility] RDW 12.2 11 - 15 % [facility] Platelet Count 157 150 - 400 K/UL [facility] MPV 10.0 7 - 11 FL [facility] Neutrophils 65 41 - 77 % [facility] Lymphocytes 25 24 - 44 % [facility] Monocytes 7 4 - 12 % [facility] Eosinophils 3 0 - 5 % [facility] Basophils 0 0 - 2 % [facility] Absolute 4.23 1.8 - 7.0 K/UL [facility] Neutrophil [facility] Absolute Lymph 1.57 1.0 - 4.8 K/UL AVERY Count [facility] Absolute 0.42 0 - 0.80 K/UL [facility] Monocyte Count [facility] Absolute 0.18 0 - 0.45 K/UL [facility] Eosinophil [facility] Absolute 0.02 0 - 0.20 K/UL AVERY Basophil Count [facility] Specimen Blood Performing Organization Address City/State/ZIP Code P fredrick Number [address] [address] HOSPITAL documented in this encounter Visit Diagnoses Diagnosis Easy bruising Other symptoms involving skin and integ umentary tissues documented in this encounter Additional Health Concerns Assessment Noted Time PHQ-9 Depression Total Score: 9 07/29/2020 10:03 AM DIRECTOR WOMEN PHQ-2 Depression Total Score: 1 02/03/2021 8:34 AM CDT documented as of this encounter
--- OUTSIDE RECORDS SUMMARY | 2021-03-07 12:43 | XMS REPORT | Encounter Summary ---
Author Organization Unknown Address [address] [place] [address] Phone [phone] Reason for Visit Progress Note Instructions 1. Anxiety disorder 2. Chronic post-traumatic stress disorde r 3. Bipolar II disorder Discussion Note: None recorded. Patient educational handouts: No information available. Plan of Care Reminders Provider Appointments None recorded. Lab None [...] TABLET BY MOUTH DAILY AT BEDTIME [facility] [place] topiramate 100 mg tablet TAKE 1 TABLET [...] RxNorm Azithromycin Active 2670 RxNorm Codeine Active 673625 RxNorm Demerol Active 122092 RxNorm Diovan Active 750561 RxNorm Keflex Active 405038 RxNorm Lyrica Active 7804 RxNorm Oxycodone Active Penicillins Active 29110 RxNorm Percocet Active Sulfa (Sulfonamide Antibiotics) Active Problems None recorded. Procedures None recorded. Vaccine List None recorded. Social History Tobacco Smoking Status Heavy Tobacco Smoker (1 PPD) Past Encounters Encounter Date Diagnosis Provider 02/01/2021 Anxiety Disorder; Chronic Po st-traumatic Stress Disorder; Bipolar II Disorder BALBINA Ibrahim, [facility]: [address] [place] [address], Ph. [phone] 01/13/2021 Anxiety Disorder; Chronic Po st-traumatic Stress Disorder; Bipolar II Disorder BALBINA Ibrahim, [facility]: [address] [place] [address], Ph. [phone] History of Present Illness BH General Assessment [...] Review of Systems None recorded. Physical Exam BH Mental Status Reported By: Patient Psychiatric Exam: [...]
--- OUTSIDE RECORDS SUMMARY | 2021-03-07 12:43 | XMS REPORT | Encounter Summary ---
Author Author [facility] Organization [facility] Address Unknown Phone Unavailable Care Team Providers Care Media Buyer Name Role Phone Vinny Poon DO PCP Mamta Macdonald PA-C Unavailable Encounter Details Care Team Description Date Type Department Vinny Poon DO [address] [place] [address] 01/24/2021 Hospital [facility] [address] [place] [id number] Social History Date Tobacco Use Types Packs/Day Years Used Current Every Day Smoker Cigarettes 1 Smokeless Tobacco: Never Used Comments: Trying to quit Comments Alcohol Use Standard Drinks/Week Yes 1 (1 standard drink = 0.6 o z pure alcohol) Sex Assigned at Date Recorded Female 10/24/2020 10:39 AM CDT Date Recorded COVID-19 Exposure Response 01/24/2021 7:05 AM CDT In the last month, have [...] tablet tablet by mouth at bedtime daily. Qc-Q6-Sfp-Mmsx-Rqo-Wzed-B Take by 0 or [phone] mouth. io-epyk-pa-mg tab clonazePAM (KLONOPIN) 1 Take 1 mg by [...] Take 1 0 capsule by mouth daily. 02/03/2021 albuterol sulfate (PROAIR Inhale 2 0 HFA) 90 mcg/actuation puffs by aerosol inhaler mouth into the lungs every 6 hours as needed for Wheezing or Shortness of Breath. Shake well before use. 02/03/2021 cariprazine HCl (VRAYLAR Take 1.5 mg 0 PO) by mouth twice weekly. 10/03/2020 02/03/2021 cyclobenzaprine Take one 30 tablet 0 (FLEXERIL) 10 mg tablet by tabletIndications: muscle mouth three spasm times daily as needed for Muscle Cramps. Do not take same day as diazepam or clonazepam Indications: muscle spasm 02/03/2021 diazePAM (VALIUM) 10 mg Take 10 mg by 0 tablet mouth daily. 10/18/2020 02/03/2021 gabapentin (NEURONTIN) Take one 270 tablet 3 800 mg tabletIndications: tablet by neuropathic pain mouth three times daily. Indications: neuropathic pain 02/03/2021 HYDROmorphone (DILAUDID) Take 2 mg by 0 2 mg tablet mouth three times daily as needed for Pain This is an old Rx 10/31/2020 02/03/2021 semaglutide (OZEMPIC) Inject 5 mL 0 0.25 mg or 0.5 mg(2 one-half mg mg/1.5 mL) injection PEN under the skin every 7 days. documented as of this encounter Discharge Disposition Code Departure Means Destination Disposition Home Home or Self Care documented in this encounter Plan of Treatment Not on filedocumented as of this encounter Procedures Comments Procedure Name Priority Date/Time Associated Diag nosis HC HEMOGLOBIN A1C Routine 01/24/2021 Type 2 diabe marquis mellitus 7:13 AM CDT without complication, without long-term current use of insulin (HCC) HC Routine 01/24/2021 Mixed hyperlipi demia LIPID-5:CHOL/TRG/HDL/LDL+ 7:13 AM CDT VLDL documented in this encounter Results * LIPID PROFILE (01/24/2021 7:13 AM CDT) Cholesterol 144 <200 MG/DL [facility] Triglycerides 131 <150 MG/DL [facility] HDL 54 >40 MG/DL [facility] LDL 62 <100 mg/dL [facility] VLDL 26 MG/DL [facility] Non HDL 90 MG/DL [place] Cholesterol Comment: [facility] Calculated non-HDL Cholesterol [facility] (non-HDL-C) indirectly measures LDL-C, Lp(a), IDL-C, and VLDL-C. It is a surrogate marker for Apoprotein B. Goal should be less than 130 mg/dL. Specimen Blood Performing Organization Address City/State/ZIP Code P fredrick Number [facility] [address] [place] [address] HOSPITAL * HEMOGLOBIN A1C (01/24/2021 7:13 AM CDT) Hemoglobin A1C 5.3 4.0 - 6.0 % [facility] Specimen Blood Performing Organization Address City/State/ZIP Code P fredrick Number [address] [address] [phone] [facility] documented in this encounter Visit Diagnoses Diagnosis Type 2 diabetes mellitus without compli cation, without long-term current use of insulin (HCC) Mixed hyperlipidemia documented in this encounter Additional Health Concerns Assessment Noted Time PHQ-9 Depression Total Score: 9 07/29/2020 10:03 AM CURB HOP PHQ-2 Depression Total Score: 2 10/28/2020 11:38 AM CDT documented as of this encounter
--- OUTSIDE RECORDS SUMMARY | 2021-03-07 12:43 | XMS REPORT | Encounter Summary ---
Author Author [facility] Organization [facility] Address Unknown Phone Unavailable Care Team Providers Care Evp Marketing Name Role Phone BenVinny baca DO PCP Mamta Macdonald PA-C Unavailable Encounter Details Care Team Description Date Type Department 01/24/2021 Travel Social History Date Tobacco Use Types Packs/Day [...] impairment: No documented as of this encounter Plan of Treatment Not on filedocumented as of this encounter Visit Diagnoses Not on filedocumented in this encounter Additional Health Concerns Assessment Noted Time PHQ-9 Depression Total Score: 9 07/29/2020 10:03 AM WORKDAY CONSULTANT PHQ-2 Depression Total Score: 2 10/28/2020 11:38 AM CDT documented as of this encounter
--- OUTSIDE RECORDS SUMMARY | 2021-03-07 12:43 | XMS REPORT | Encounter Summary ---
Author Author [facility] Organization [facility] Address Unknown Phone Unavailable Care Team Providers Care Cardiac Cath Tech Name Role Phone Vinny Poon DO PCP Mamta Macdonald PA-C Unavailable Lars Guerrero MD Unavailable Reason for Visit * Reason Comments Medication Refill Encounter Details Care Team Description Date Type Department Vinny Poon DO [facility] [place] [address] 01/16/2021 Refill Family Medicine: [facility] [address] [place] [phone] Social History Date Tobacco Use Types [...] Date End Date Prescription Sig Dispensed Refills 01/16/2021 01/17/[address] TAKE 1 TABLET 180 tablet 0 (PROTONIX) 40 mg tablet BY MOUTH TWICE DAILY FOR GERD documented in this encounter Plan of Treatment Not on filedocumented as of this encounter Visit Diagnoses Not on filedocumented in this encounter Discontinued Medications Start Date End Date Medication Sig Discontinue Reason 01/16/2021 01/16/[address] TAKE 1 (PROTONIX) 40 mg tablet TABLET BY MOUTH TWICE DAILY FOR GERD documented as of this encounter Additional Health Concerns Assessment Noted Time PHQ-9 Depression Total Score: 9 07/29/2020 10:03 AM QUANTITATIVE MANAGER PHQ-2 Depression Total Score: 2 10/28/2020 11:38 AM CDT documented as of this encounter
--- OUTSIDE RECORDS SUMMARY | 2021-03-07 12:43 | XMS REPORT | Encounter Summary ---
Author Author [facility] Organization [facility] Address Unknown Phone Unavailable Care Team Providers Care Upper Inspector Name Role Phone BenVinny baca DO PCP Mamta Macdonald PA-C Unavailable Encounter Details Care Team Description Date Type Department 02/03/2021 Travel Social History Date Tobacco Use Types [...] Depression Total Score: 9 07/29/2020 10:03 AM COTTON CONVERTER PHQ-2 Depression Total Score: 1 02/03/2021 8:34 AM CDT documented as of this encounter
--- OUTSIDE RECORDS SUMMARY | 2021-03-07 12:43 | XMS REPORT | Encounter Summary ---
Author Author [facility] Organization [facility] Address Unknown Phone Unavailable Care Team Providers Care Transformer Assembly Supervisor Name Role Phone Vinny Poon DO PCP Mamta Macdonald PA-C Unavailable Lars Guerrero MD Unavailable Reason for Visit * Reason Comments Medication Refill Encounter Details Care Team Description Date Type Department Vinny Poon DO [facility] [place] [address] 01/15/2021 Refill Family Medicine: [facility] [address] [place] [phone] Social History Date Tobacco Use Types [...] End Date Prescription Sig Dispensed Refills 01/16/2021 01/16/[address] TAKE 1 TABLET 90 tablet 0 (PROTONIX) 40 mg tablet BY MOUTH TWICE DAILY FOR GERD documented in this encounter Plan of Treatment Not on filedocumented as of this encounter Visit Diagnoses Not on filedocumented in this encounter Discontinued Medications Start Date End Date Medication Sig Discontinue Reason 07/29/2020 01/16/[address] Take one (PROTONIX) 40 mg tablet by tabletIndications: mouth twice gastroesophageal reflux daily. disease Indications: gastroesopha geal reflux disease documented as of this encounter Additional Health Concerns Assessment Noted Time PHQ-9 Depression Total Score: 9 07/29/2020 10:03 AM IRRIGATION ENGINEER PHQ-2 Depression Total Score: 2 10/28/2020 11:38 AM CDT documented as of this encounter
== END 2021-03-07 10:45 | disposition home or self-care (01) ==
LOC: ER 08:13
DX: S83.422A Sprain of lateral collateral ligament of left knee, initial encounter (principal); F17.210 Nicotine dependence, cigarettes, uncomplicated; W01.0XXA Fall on same level from slipping, tripping and stumbling without subsequent striking against object, initial encounter; Y92.009 Unspecified place in unspecified non-institutional (private) residence as the place of occurrence of the external cause
CPT/HCPCS: 73562

== ENCOUNTER → 2021-04-04 | Outpatient (CLI) | payer MEDICARE, MEDICAID | LOC: CARD 10:00 | PROVIDERS: ATTEND Nurse Practitioner Family | DX: I07.1 Rheumatic tricuspid insufficiency (principal) | CPT/HCPCS: 93306 ==

== ENCOUNTER 2021-06-07 05:38 | Outpatient (CLI) | payer MEDICARE, MEDICAID ==
[~2021-06-07] VITALS: Ht 160 cm; Wt 78.6 kg
[2021-06-07] MEDS ORDERED: ATOR10TA66 PO (11:11)
[2021-06-07] MEDS ORDERED: HYDR-3584 PO (11:11)
[2021-06-07] MEDS ORDERED: POTA-51 PO (11:17)
[2021-06-07] MEDS ORDERED: TOPI100T11 PO (11:17)
[2021-06-07] MEDS ORDERED: RT-ALBUINH IH (11:17)
[2021-06-07] MEDS ORDERED: LAMO200T5 PO (11:17)
[2021-06-07] MEDS ORDERED: LISI2.5T13 PO (11:50)
[2021-06-07] MEDS ORDERED: MELO15TA14 PO (11:50)
[2021-06-07] MEDS ORDERED: FLUO20CA42 PO (11:50)
[2021-06-07] MEDS ORDERED: MIRT-96 PO (11:50)
[2021-06-07] MEDS ORDERED: METF-479 PO (11:50)
[2021-06-07] MEDS ORDERED: ROPI3TAB4 PO (11:50)
[2021-06-07] MEDS ORDERED: METO50TA7 PO (11:50)
[2021-06-07] MEDS ORDERED: PANT40TA52 PO (11:50)
[2021-06-07] MEDS ORDERED: CARI1.5C PO (11:50)
[2021-06-07] MEDS ORDERED: ASPI-999 PO (11:50)
[2021-06-07] MEDS ORDERED: MULT-593 PO (11:50)
[2021-06-14] MEDS ORDERED: TRM50T PO (09:11)
== END 2021-06-07 12:05 | disposition home or self-care (01) ==
LOC: PREOP 05:38
PROVIDERS: ATTEND Orthopaedic Surgery
DX: Z01.818 Encounter for other preprocedural examination (principal)

== ENCOUNTER 2021-06-14 08:03 | Day surgery (SDC) | payer MEDICARE, MEDICAID ==
--- NOTE | 2021-06-07 06:56 | HISTORY AND PHYSICAL ---
DATE OF SERVICE: This will be for outpatient surgery on 06/14/2021 for left knee arthroscopy. HISTORY: The patient is a 55-year-old female with complaints of left anterior knee pain, catching and locking. She reports pain and mechanical type symptoms. She has undergone treatment with physical therapy without relief. She reports functional impairment and due to failure to improve with conservative measures, the patient elected to proceed with surgical intervention. REVIEW OF SYSTEMS: No chest pain, no shortness of breath, no dysuria. MEDICATIONS: 1. Topiramate. 2. Lamotrigine. 3. Potassium. 4. Albuterol. 5. Ropinirole. 6. Fluoxetine. 7. Vraylar. 8. Meloxicam. 9. Metformin. 10. Aspirin. 11. Lisinopril. 12. Atorvastatin. 13. Hydroxyzine. 14. Remeron. SOCIAL HISTORY: The patient is a former smoker. PAST MEDICAL HISTORY: Significant for hypertension and diabetes. ALLERGIES: SULFA, HYDROMORPHONE, PENICILLIN, DARVON, KEFLEX, ERYTHROMYCIN, TYLOX, DEMEROL. PHYSICAL EXAMINATION: GENERAL: The patient is well developed, well nourished, in no acute distress. HEENT: Normocephalic, atraumatic. Pupils are equal, round and reactive to light. Oropharynx is clear. NECK: Supple, no lymphadenopathy. LUNGS: Clear to auscultation bilaterally. HEART: Regular rate and rhythm. ABDOMEN: Soft, nontender, nondistended. EXTREMITIES: The patient ambulates with an antalgic gait. Range of motion is 0/110. She has pain with patellar loading with crepitus noted. No varus or valgus laxity. Negative anterior and posterior drawer. Slight effusions noted. IMPRESSION: Left knee chondromalacia of patella. PLAN: Left knee arthroscopy with chondroplasty. The risks, benefits, options, ramifications and recovery have been discussed at length with the patient. She understands and wishes to proceed. Job ID: [id number] DocumentID: [id number] Dictated Date: 06/01/2021 09:40:46 Economics Faculty Member Date: 06/01/2021 10:12:49 Dictated By: HEATHER TATUM MD
[2021-06-14] VITALS (11 sets, daily range): BP systolic 119–169; BP diastolic 78–98
[~2021-06-14] VITALS: Ht 160 cm; Wt 78.6 kg
[~2021-06-14 08:03] MED LIST: ASPI-999 PO; ATOR10TA66 PO; CARI1.5C PO; FLUO20CA42 PO; HYDR-3584 PO; HYDROcodone/APAP 7.5 MG/325 MG (LORTAB, LORCET PLUS) TABLET PO PRN; LAMO200T5 PO; LISI2.5T13 PO; MELO15TA14 PO; METF-479 PO; METO50TA7 PO; MIRT-96 PO; MULT-593 PO; PANT40TA52 PO; POTA-51 PO; ROPI3TAB4 PO; RT-ALBUINH IH; TOPI100T11 PO
--- OUTSIDE RECORDS SUMMARY | 2021-06-14 08:09 | XMS REPORT | Clinical Summary ---
Author Author [facility] Organization [facility] Address Unknown Phone Unavailable Care Team Providers Care Mixed Crop And Livestock Farmer Name Role Phone AyahVinny George BELTRAN PCP Mamta Macdonald PA-C Unavailable Lars Guerrero MD Unavailable Source Comments Some departments are not documenting in the electronic medical record. If you d o not see the information that you expected, contact Release of Information in [facility] [employer] Information Management department at [phone] for further assistan ce in locating additional records.[facility] Allergies Comments Active Allergy Reactions Severity [...] tablet mouth daily. Take with food. Active Ap-C3-Kep-Tskc-Erj-Bfyp-B Take by 0 or [phone] mouth. ss-qidk-qi-mg tab Active clonazePAM (KLONOPIN) 1 Take 1 [...] 100 Take one 180 tablet 3 1 09/11/ mg tablet tablet by 0 mouth twice [...] Improved with changes in medications. Anemia 07/28/2020 Immunizations Name Administration Dates Next Due COVID-19 [...] Comments COLONOSCOPY 09/01/[address] Sharma at [facility] - normal, repeat in 10 years. UPPER GASTROINTESTINAL 09/01/2018 Zachary, esophagit is ENDOSCOPY APPENDECTOMY CERVICAL FUSION HYSTERECTOMY 01/12/1990 with BSO, stopped H RT 2004 TUBAL LIGATION HX HYSTERECTOMY CHOLECYSTECTOMY LUMBAR FUSION L4, 5, aned S1 UPPER GASTROINTESTINAL 10/31/2020 Mouth/N/A Mann re, focal gastritis, mild chronic ENDOSCOPY esophagitis [...] Fibrosis Brother Cancer-Hematologic Father possibly from [place] Thyroid Disease Mother details unknown Cancer-Breast Sister [...] 2014 VACCINE (1 of 2) INFLUENZA VACCINE 02/19/2021 04/15/2020, 04/22/2019, 04/23/2014, Additional history exists COVID-19 VACCINE (3 - 04/08/2021 10/06/2020, Booster for Moderna 07/27/2020 series) OSTEOPOROSIS 04/28/2021 04/28/2019 SCREENING/MONITORING ([facility] w/doc), 04/28/2019, 04/28/2019 BREAST CANCER SCREENING 05/09/2021 05/09/2020 HBA1C 07/27/2021 01/24/2021, 10/28/2020, 2020, Additional history exists DTAP/TDAP VACCINES (3 - 04/15/2030 04/15/2020, Td or Tdap) 02/04/2012 COLORECTAL CANCER 10/31/2030 10/31/2020, SCREENING 09/01/2018 ([facility] w/doc), 09/01/2018, Additional history exists PNEUMONIA VACCINE (DM) Completed 12/30/2007 Results Not on filefrom Last 3 Months Insurance Type Payer Benefit Subscriber ID Effective Phone Address Plan / Dates Group Medicare MEDICARE MEDICARE [id number] 2010- [phone] [address] AND Present [address] [place] [address] [employer] MEDICAID AETNA [id number] 2018-P [phone] [address] [place] [address] [place] [address] Advance Directives Patient Welfare Eligibility Interviewer Explanation Type Date Recorded Advance Directive/DPOA Advance 06/12/2020 2:29 PM Directive/DPOA Care Teams Start Date End Date Mixed Crop And Livestock Farmer Relationship Specialty 03/24/20 Vinny oPon DO PCP - General Family [address] [place] [address] 09/06/20 Mamta Macdonald PA-C Orthopedic [address] [place] [address] 02/10/21 Lars Guerrero MD Surgery [address] [place] [address]
[2021-06-14] MEDS ORDERED: CLINDAMYCIN 600 MG/50 ML IVPB 50 ML IV ONE ×2 (08:15→08:18)
[2021-06-14] MEDS ORDERED: LACTATED RINGERS 1,000 ML IV PRN (08:15)
[2021-06-14] MEDS ORDERED: BUPIVACAINE 0.25% 30 ML (SENSORCAINE) VIAL ONE (08:42)
[2021-06-14] MEDS ORDERED: morphine PF (DURAMORPH) 10 MG/10 ML AMP ONE (08:42)
[2021-06-14] MEDS ORDERED: ONDANSETRON 4 MG/2 ML (SDV) Z0FRAN ONE (09:03)
[2021-06-14] MEDS ORDERED: LIDOCAINE PF 2% 5 ML (XYLOCAINE) VIAL ONE (09:03)
[2021-06-14] MEDS ORDERED: proPOfol 200 MG/20 ML (DIPRIVAN) VIAL IV ONE (09:03)
[2021-06-14] MEDS ORDERED: MIDAZOLAM 2 MG/2 ML (VERSED) VIAL ONE (09:04)
[2021-06-14] MEDS ORDERED: fentaNYL INJ 100 MCG/2 ML AMP ONE ×2 (09:04→10:07)
[2021-06-14] MEDS ORDERED: TRM50T PO ×2 (09:11)
[2021-06-14] MEDS ORDERED: SEVOFLURANE (ULTANE) 15 ML INHAL SOLN ONE (09:43)
--- NOTE | 2021-06-14 09:45 | Progress Note-Pre Operative ---
Pre-Operative Progress Note H&P Reviewed The H&P was reviewed, patient examined and no changes noted. Date Seen by Provider: Jun 14, 2021 Time Seen by Provider: 08:30 Date H&P Reviewed: Jun 14, 2021 Time H&P Reviewed: 07:11 Pre-Operative Diagnosis: laeft knee chondromalacia of the patella HEATHER TATUM MD Jun 14, 2021 09:45
--- NOTE | 2021-06-14 09:46 | Progress Note-Post Operative ---
Post-Operative Progess Note Surgeon (s)/Lapidarist (s) Surgeon HEATHER TATUM MD Lapidarist: Alex Theodore Pre-Operative Diagnosis laeft knee chondromalacia of the patella Post-Operative Diagnosis laeft knee chondromalacia of the patella and lateral tibia plateau Procedure & Operative Findings Date of Procedure 06/14/21 Procedure Performed/Findings left knee arthroscopic chondroplasty of the patella and lateral tibial plateau Anesthesia Type GETA Estimated Blood Loss Estimated blood loss (mL): minimal Specimens/Packing Specimens Removed none Packing: none HEATHER TATUM MD Jun 14, 2021 09:46
[2021-06-14] MEDS ORDERED: fentaNYL INJ 100 MCG/2 ML AMP IVP ONE (10:00)
[2021-06-14] MEDS ORDERED: ONDANSETRON 4 MG/2 ML (SDV) Z0FRAN IVP PRN (10:00)
--- NOTE | 2021-06-14 12:07 | Anesthesia-General Post-Op ---
General Patient Condition Mental Status/LOC: Same as Preop Cardiovascular: Satisfactory Nausea/Vomiting: Absent Respiratory: Satisfactory Pain: Controlled Complications: Absent Post Op Complications Complications None Follow Up Care/Instructions Patient Instructions None needed. Anesthesia/Patient Condition Patient Condition Patient is doing well, no complaints, stable vital signs, no apparent adverse anesthesia problems. No complications reported per nursing. BLAKE ELDRIDGE CRNA Jun 14, 2021 12:07
--- NOTE | 2021-06-14 12:42 | Physical Therapy Ortho Eval ---
PT Orthopedic Evaluation Type of Surgery Knee Scope Prior Level of Function Current Living Status: Alone Locomotion (Upon Admit): Independent Established Durable Medical Eq: Straight Cane Patient reports her cane is an old staff that was cut down to make a cane for her. Patient was advised against using this, however she requested and performed gait with it well. Subjective Entry Into Home: Level Entry Steps Into Home: 0 Motor Control Motor Control: Motor Control WNL ROM ROM: WFL, except focal deficit Strength Strength: WFL Transfer SCALE: Activities may be completed with or without assistive devices. 3-Rvolfzisuc-tllzxxy completes the activity by him/herself with no assistance from a helper. 5-Set-up or Clean-up Assistance-helper sets up or cleans up; patient completes activity. Donaldson assists only prior to or following the activity. 4-Supervision or Touching Assistance-helper provides verbal cues and/or touching/steadying and/or contact guard assistance as patient completes activity. Assistance may be provided throughout the activity or intermittently. 3-Partial/Moderate Assistance-helper does LESS THAN HALF the effort. Donaldson lifts, holds or supports trunk or limbs, but provides less than half the effort. 2-Substantial/Maximal Assistance-helper does MORE THAN HALF the effort. Donaldson lifts or holds trunk or limbs and provides more than half the effort. 6-Hbkmmtcxk-pxnkmd does ALL the effort. Patient does none of the effort to complete the activity. Or, the assistance of 2 or more helpers is required for the patient to complete the activity. If activity was not attempted, code reason: 7-Patient Refused. 9-Not Applicable-not attempted and the patient did not perform the activity before the current illness, exacerbation or injury. 10-Not Attempted due to Environmental Limitations-(lack of equipment, weather restraints, etc.). 88-Not Attempted due to Medical Conditions or Safety Concerns. Transfers (B, C, W/C) (QC): 6 Gait Gait Assistive Device: Cane Single Point Left Lower Extremity: Left Weight Bearing Status LLE: Weight Bearing/Tolerated Gait (QC): 6 Distance (QC): 5=395-15 ft Distance: 120 feet Gait Level of Assist: 6 Treatment Rendered Treatment: Therapeutic Exercises, Gait Train Exercise Instruction: Quad Sets, Straight Leg Raise, Heel Slides Assessment/Goals Goal Time Frame: 1 Visit Understands HEP: Yes Safe Ambulation: Yes Plan Treatment Plan: Discharge Time Time In: 1215 Time Out: 1225 Total Billed Treatment Time: 10 Billed Treatment Time Visit, LOGAN Jon PT Jun 14, 2021 12:42
--- NOTE | 2021-06-14 14:45 | OPERATIVE REPORT ---
DATE OF SERVICE: 06/14/2021 PREOPERATIVE DIAGNOSIS: Left knee chondromalacia of the patella. POSTOPERATIVE DIAGNOSES: 1. Left knee chondromalacia of the patella. 2. Left knee chondromalacia of the lateral tibial plateau. PROCEDURES: 1. Left knee arthroscopic chondroplasty of the patella. 2. Left knee arthroscopic chondroplasty of the lateral tibial plateau. SURGEON: Jose Hopper MD FLIGHT ENGINEER INSTRUCTOR: Alex Theodore, who assisted throughout the procedure and closed the incisions. ANESTHESIA: General endotracheal by Jerzy Leo CRNA. TOURNIQUET TIME: Nonfocal. ESTIMATED BLOOD LOSS: Minimal. DRAINS: None. COMPLICATIONS: None. POSTOPERATIVE PLAN: Routine arthroscopy protocol. The patient was transferred to the recovery room awake and in stable condition. STATEMENT OF MEDICAL NECESSITY: The patient is a 55-year-old female with complaints of left anterior knee pain, catching, locking and swelling. She has undergone treatment with physical therapy without relief. She reported functional impairment and limitations of activities. Due to failure to improve with conservative measures, the patient elected to proceed with surgical intervention. Examination under anesthesia revealed range of motion 0/125 with negative Marleni, negative anterior and posterior drawer, no varus or valgus laxity and a negative pivot shift. ARTHROSCOPIC FINDINGS: The patella demonstrated grade IV chondral flap laterally in a 10 x 10 area. Trochlea demonstrated no significant chondral abnormalities. The medial and lateral gutters were clear. The ACL and PCL were intact. Medial compartment demonstrated no significant meniscal or chondral pathology. The lateral compartment demonstrated grade IV chondral flap over the central portion of the tibial plateau in an 8 x 8 area. PROCEDURE IN DETAIL: After risks and benefits of procedure were discussed and questions were answered, an informed consent was signed and placed on chart, the operative site was confirmed in the preoperative holding area initialed by the surgeon. The patient was then transferred to the operating room. After adequate levels of general endotracheal anesthetic were obtained, a timeout was called, confirming the operative site. Examination under anesthesia was performed with above findings noted. Left lower extremity was prepped and draped in the usual sterile fashion. The knee joint was injected with 60 mL fluid and standard inferolateral portal placed with the arthroscope under direct visualization, inferior medial portal was created. The menisci and cruciates carefully probed, above findings noted. The unstable chondral flaps on the patella were debrided with a shaver back to a stable edge. The scope was then redirected into the lateral compartment and unstable chondral flaps on the lateral tibial plateau were debrided with a shaver back to a stable edge. Knee was copiously irrigated. The portal sites were closed with 4-0 nylon in septic fashion. Knee was injected with Duramorph. Port sites were infiltrated with plain Marcaine and soft dressing was applied. The patient was transferred to the recovery room awake and in stable condition. Job ID: [id number] DocumentID: [id number] Dictated Date: 06/14/2021 09:44:59 Wax Cutter Date: 06/14/2021 14:44:44 Dictated By: JOSE HOPPER MD
== END 2021-06-14 12:25 | disposition home or self-care (01) ==
LOC: SDC 08:03
PROVIDERS: ATTEND Orthopaedic Surgery
DX: M94.262 Chondromalacia, left knee (principal); K21.9 Gastro-esophageal reflux disease without esophagitis; E11.9 Type 2 diabetes mellitus without complications; E11.40 Type 2 diabetes mellitus with diabetic neuropathy, unspecified; M79.7 Fibromyalgia; E78.5 Hyperlipidemia, unspecified; I10 Essential (primary) hypertension; E11.39 Type 2 diabetes mellitus with other diabetic ophthalmic complication; G25.81 Restless legs syndrome; G43.909 Migraine, unspecified, not intractable, without status migrainosus; E78.00 Pure hypercholesterolemia, unspecified; M62.82 Rhabdomyolysis; M19.90 Unspecified osteoarthritis, unspecified site; D64.9 Anemia, unspecified; F32.A Depression, unspecified; F41.9 Anxiety disorder, unspecified; F43.10 Post-traumatic stress disorder, unspecified; F41.0 Panic disorder [episodic paroxysmal anxiety]; Z90.710 Acquired absence of both cervix and uterus; Z90.89 Acquired absence of other organs; Z79.84 Long term (current) use of oral hypoglycemic drugs; Z79.899 Other long term (current) drug therapy; Z87.891 Personal history of nicotine dependence
CPT/HCPCS: 82947; 87081

== ENCOUNTER 2021-06-16 15:02 | Emergency (ER) | payer MEDICARE, MEDICAID ==
[~2021-06-16] VITALS: Ht 160 cm; Wt 80.3 kg
[~2021-06-16 15:02] MED LIST changes: -HYDROcodone/APAP 7.5 MG/325 MG (LORTAB, LORCET PLUS) TABLET PO PRN; +TRM50T PO
[2021-06-16 16:03] LABS: POTASSIUM 4.2 MMOL/L (3.6-5.0)
[2021-06-16 16:04] LABS: CALCIUM 9.3 MG/DL (8.5-10.1)
[2021-06-16 16:08] LABS: CREATININE SERUM 0.71 MG/DL (0.60-1.30)
--- NOTE | 2021-06-16 16:25 | ED General ---
General Chief Complaint: General Problems/Pain Stated Complaint: LOW POTASSIUM Nursing Triage Note: PT AMB TO RM 8 W CANE. PT CONCERNED HER POTASSIUM IS LOW D/T DRY MOUTH AND SHE'S OFF BALANCE. A&OX4. Source of Information: Patient Exam Limitations: No Limitations History of Present Illness Date Seen by Provider: Jun 16, 2021 Time Seen by Provider: 15:40 Initial Comments This 55-year-old woman presents to the emergency room stating that she feels like her potassium is low because she "feels off" and her "mouth is drawn bilaterally". She reports when feeling this way in the past she has had low potassium. She thinks having an arthroscopic knee surgery last week and triggered electrolyte disturbances. She denies any nausea, vomiting, diarrhea, or fevers. She also notes she is taking tramadol for pain related to the surgery. She denies being in significant pain at this time. She has noted to be rather hypertensive during assessment. Allergies and Home Medications Allergies Coded Allergies: Penicillins (Verified Allergy, Unknown, 03/07/21) Sulfa (Sulfonamide Antibiotics) (Verified Allergy, Unknown, 03/07/21) acetaminophen (Verified Allergy, Unknown, 06/16/21) cephalexin (Verified Allergy, Unknown, 06/16/21) codeine (Verified Allergy, Unknown, 03/07/21) erythromycin base (Verified Allergy, Unknown, 03/07/21) hydromorphone (Verified Allergy, Unknown, 06/07/21) meperidine (Verified Allergy, Unknown, 03/07/21) oxycodone (Verified Allergy, Unknown, 03/07/21) pregabalin (Verified Allergy, Unknown, 06/16/21) propoxyphene (Verified Allergy, Unknown, 03/07/21) Patient Home Medication List Home Medication List Reviewed: Yes Albuterol Sulfate (Proair Hfa) 1 Puff Puff, 2 PUFF IH UD, (Reported) Entered as Reported by: MCKENZIE PARRA on 06/07/21 1117 Aspirin (Aspirin) 81 Mg Tab.chew, 81 MG PO DAILY, (Reported) Entered as Reported by: MCKENZIE PARRA on 06/07/21 1150 Atorvastatin Calcium (Atorvastatin Calcium) 10 Mg Tablet, 10 MG PO HS, (Reported) Entered as Reported by: MCKENZIE PARRA on 06/07/21 1111 Cariprazine Hydrochloride (Vraylar) 1.5 Mg Capsule, 1.5 MG PO UD, (Reported) Entered as Reported by: MCKENZIE PARRA on 06/07/21 115 Fluoxetine HCl (Prozac) 20 Mg Capsule, 20 MG PO DAILY, (Reported) Entered as Reported by: MCKENZIE PARRA on 06/07/21 115 Hydroxyzine HCl (Hydroxyzine HCl) 10 Mg Tablet, 10 MG PO DAILY, (Reported) Entered as Reported by: MCKENZIE PARRA on 06/07/21 1111 Lamotrigine (Lamotrigine) 200 Mg Tablet, 200 MG PO DAILY, (Reported) Entered as Reported by: MCKENZIE PARRA on 06/07/21 111 Lisinopril (Lisinopril) 2.5 Mg Tablet, 2.5 MG PO DAILY, (Reported) Entered as Reported by: MCKENZIE PARRA on 06/07/21 115 Meloxicam (Mobic) 15 Mg Tablet, 15 MG PO DAILY, (Reported) Entered as Reported by: MCKENZIE PARRA on 06/07/21 115 Metformin HCl (Metformin HCl ER) 1,000 Mg Tab.er.24, 1,000 MG PO BID, (Reported) Entered as Reported by: MCKENZIE PARRA on 06/07/21 115 Metoprolol Succinate (Metoprolol Succinate) 50 Mg Tab.er.24h, 50 MG PO BID, (Reported) Entered as Reported by: MCKENZIE PARRA on 06/07/21 115 Mirtazapine (Remeron) 15 Mg Tablet, 15 MG PO HS, (Reported) Entered as Reported by: MCKENZIE PARRA on 06/07/21 115 Multivitamin with Minerals (Multiple Vitamin) 1 Each Tablet, 1 EACH PO DAILY, (Reported) Entered as Reported by: MCKENZIE PARRA on 06/07/21 115 Pantoprazole Sodium (Pantoprazole Sodium) 40 Mg Tablet.dr, 40 MG PO BID, (Reported) Entered as Reported by: MCKENZIE PARRA on 06/07/21 115 Potassium Chloride (Potassium Chloride) 20 Meq Tablet.er, 20 MEQ PO TID, (Reported) Entered as Reported by: MCKENZIE PARRA on 06/07/21 111 Ropinirole HCl (Ropinirole HCl) 3 Mg Tablet, 3 MG PO DAILY, (Reported) Entered as Reported by: MCKENZIE Cassidy AIDA on 06/07/21 1150 Topiramate (Topiramate) 100 Mg Tablet, 100 MG PO BID, (Reported) Entered as Reported by: MCKENZIE Cassidy AIDA on 06/07/21 1117 Tramadol HCl (Tramadol HCl) 50 Mg Tablet, 50 MG PO Q4H PRN for PAIN-MODERATE (5- 7) Prescribed by: ISAIAS DOUGLAS on 06/14/21 0912 Review of Systems Review of Systems Constitutional: see HPI EENTM: ear discharge Respiratory: no symptoms reported Cardiovascular: see HPI Gastrointestinal: no symptoms reported Genitourinary: no symptoms reported : No Musculoskeletal: see HPI Skin: no symptoms reported Psychiatric/Neurological: See HPI Hematologic/Lymphatic: No Symptoms Reported Immunological/Allergic: no symptoms reported Past Mvaldkg-Kqoulr-Prusrj Hx Patient Social History Tobacco Use?: No Smoking Status: Former Smoker Use of E-Cig and/or Vaping dev: No Substance use?: No Alcohol Use?: No Immunizations Up To Date First/Initial COVID19 Vaccinat: july 27, 2020 Second COVID19 Vaccination Leon: october 06, 2020 COVID19 Vaccine Wafer Fab Technician: MODERNA Seasonal Allergies Seasonal Allergies: Yes Past Medical History Surgeries: Yes (l knee 2000, hysterectomy 1989, neck 2010, back 2011) Amputation, Appendectomy, Gallbladder, Hysterectomy, Orthopedic (Cervical discectomy) Respiratory: Yes Asthma Cardiac: Yes (enlarged heart chambers) Heart Murmur, High Cholesterol, Hypertension Neurological: Yes (lower right leg loss of tingling sensation per patient) Headaches /Migraines Female Reproductive Disorders: Endometriosis, Ovarian Cyst [employer] History: Hysterectomy, Tubal Ligation Genitourinary: Yes (kidneys shut down in 2014) Kidney Infection Gastrointestinal: Yes Gastroesophageal Reflux, Irritable Bowel Musculoskeletal: Yes (rls, sacral joint damage, osteoarthritis, rhabdomyolosis, cervical myelopat) Arthritis, Fibromyalgia Diabetes, Non-Insulin dep HEENT: Yes Cataract, Macular Degeneration Hearing Impairment: Hard of Hearing, Bilateral Hearing Aide Cancer: No Psychosocial: Yes (mdd, nataly, borderline personality, panic disorder) Anxiety, PTSD, Bipolar, Personality Disorder, Depression Integumentary: No Blood Disorders: Yes (Anemia) Physical Exam Vital Signs Vital Signs - First Documented 06/16/21 15:28 Temp 36.8 Pulse 63 Resp 20 B/P (MAP) 189/109 (135) Pulse Ox 97 O2 Delivery Room Air Capillary Refill : Less Than 3 Seconds Height, Weight, BMI Height: '" Weight: lbs. oz. kg; 31.00 BMI Method: General Appearance: No Apparent Distress, WD/WN HEENT: PERRL/EOMI, Normal ENT Inspection, Pharynx Normal Neck: Normal Inspection Respiratory: Lungs Clear, Normal Breath Sounds, No Accessory Muscle Use Cardiovascular: Regular Rate, Rhythm, No Edema, No Murmur, Normal Peripheral Pulses Gastrointestinal: Non Tender, Soft Extremity: Normal Inspection, No Pedal Edema Neurologic/Psychiatric: Alert, Oriented x3, No Motor/Sensory Deficits, Normal Mood/Affect, orthopedic coder II-XII Norm as Tested Skin: Normal Color, Warm/Dry Progress/Results/Core Measures Suspected Sepsis SIRS Temperature: Pulse: 63 Respiratory Rate: 20 Blood Pressure 189 /109 Mean: 135 Laboratory Tests 06/16/21 15:40: Creatinine 0.71 Results/Orders Lab Results Laboratory Tests Test 06/16/21 15:40 Range/Units Sodium Level 141 135-145 MMOL/L Potassium Level 4.2 3.6-5.0 MMOL/L Chloride Level 106 98-107 MMOL/L Carbon Dioxide Level 23 21-32 MMOL/L Anion Gap 12 5-14 MMOL/L Blood Urea Nitrogen 16 7-18 MG/DL Creatinine 0.71 0.60-1.30 MG/DL Estimat Glomerular Filtration Rate 85 BUN/Creatinine Ratio 23 Glucose Level 86 70-105 MG/DL Calcium Level 9.3 8.5-10.1 MG/DL My Orders Orders - THOMAS ROSA MD Basic Metabolic Panel (06/16/21 15:36) Ed Iv/Invasive Line Start (06/16/21 15:36) Vital Signs/I&O 06/16/21 06/16/21 15:28 17:20 Temp 36.8 Pulse 63 67 Resp 20 20 B/P (MAP) 189/109 (135) 172/93 Pulse Ox 97 97 O2 Delivery Room Air Room Air Capillary Refill : Less Than 3 Seconds Blood Pressure Mean: 135 Progress Note #1: Time: 16:24 Progress Note Electrolytes are unremarkable. Patient states she feels like her blood sugar is dropping. Blood sugar on the lab draw was 86. She has not eaten anything and feels like her sugar is now dropping. She declines to have a blood sugar check but is given peanut butter and crackers. She remains fairly hypertensive. She denies taking any stimulants today and is insistent that she took her blood pressure medications. Progress Note #2: Progress Note She felt better after eating. Blood pressure remained fairly high. She was strongly encouraged to follow-up promptly with her primary care provider for monitoring her blood pressure. In the meantime, she was instructed to increase her lisinopril from 2.5 mg to 5 mg. Departure Impression Primary Impression: Malaise Additional Impression: Episode of hypertension Disposition: HOME, SELF-CARE Condition: Improved Departure-Patient Inst. Decision time for Depature: 16:53 Referrals: NO,LOCAL PHYSICIAN (PCP/Family) Primary Care Physician Patient Instructions: High Blood Pressure (DC) Add. Discharge Instructions: Drink plenty of water and avoid stimulants or excessive salt that may increase your blood pressure. Stimulants may include things like energy drinks, excessive caffeine, diet pills, exercise supplements, decongestant medications, medications for ADD or ADHD, etc. Follow-up with your primary care provider soon as possible to evaluate your blood pressure again. In the meantime, increase your lisinopril to 5 mg daily. When you return home today you may take lisinopril 2.5 mg. Call with questions or concerns. Return to the ER if you have worsening symptoms. All discharge instructions reviewed with patient and/or family. Voiced understanding. Copy Copies To 1: RAYMUNDO FLETCHER JOSHUA T MD Jun 16, 2021 16:24
[2021-06-16 17:20] VITALS: BP 172/93
== END 2021-06-16 17:20 | disposition home or self-care (01) ==
LOC: EDUNIT# 15:02 → ER 15:05
DX: R53.81 Other malaise (principal); I10 Essential (primary) hypertension; J45.909 Unspecified asthma, uncomplicated; E78.00 Pure hypercholesterolemia, unspecified; F41.9 Anxiety disorder, unspecified; F31.9 Bipolar disorder, unspecified; K21.9 Gastro-esophageal reflux disease without esophagitis; E11.9 Type 2 diabetes mellitus without complications; Z87.891 Personal history of nicotine dependence; Z79.82 Long term (current) use of aspirin; Z79.899 Other long term (current) drug therapy; Z79.84 Long term (current) use of oral hypoglycemic drugs
CPT/HCPCS: 36415; 80048

== ENCOUNTER 2021-07-25 05:33 | Outpatient (CLI) | payer MEDICARE, MEDICAID ==
[~2021-07-25] VITALS: Ht 160 cm; Wt 86.4 kg
[2021-07-25] MEDS ORDERED: DOXE25CA46 PO (11:12)
[2021-07-25] MEDS ORDERED: LAMO300T2 PO (11:12)
== END 2021-07-25 12:58 | disposition home or self-care (01) ==
LOC: PREOP 05:33
PROVIDERS: ATTEND Orthopaedic Surgery
DX: Z01.818 Encounter for other preprocedural examination (principal)

== ENCOUNTER 2021-08-02 09:28 | Day surgery (SDC) | payer MEDICARE, MEDICAID ==
--- NOTE | 2021-08-01 16:39 | HISTORY AND PHYSICAL ---
DATE OF SERVICE: ADMISSION HISTORY AND PHYSICAL This will be for outpatient surgery on 08/02/2021 for left shoulder arthroscopy and rotator cuff repair. HISTORY: The patient is a 55-year-old female who fell in May on her outstretched left upper extremity. Since then, she has had inability to raise her arm above her head and reports loss of motion with weakness. An MRI was obtained, which revealed a large split tear of the supraspinatus with biceps tendinosis. Due to loss of function and pain, the patient has elected to proceed with surgical intervention. REVIEW OF SYSTEMS: No chest pain, no shortness of breath, no dysuria. PAST MEDICAL HISTORY: Diabetes, restless leg, hypertension, high triglycerides, macular degeneration, migraines. PAST SURGICAL HISTORY: Left knee, hysterectomy, cholecystectomy, cervical spine, lumbar spine. FAMILY HISTORY: Significant for hypertension, diabetes, cancer, thyroid disorder. PRIMARY CARE PROVIDER: [facility]. MEDICATIONS: Topiramate, lamotrigine, potassium, albuterol, ropinirole, fluoxetine, Vraylar, meloxicam, pantoprazole, metformin, aspirin, atorvastatin, hydroxyzine, doxepin, lisinopril, baclofen. ALLERGIES: SULFA, HYDROMORPHONE, PENICILLIN, DARVON, KEFLEX, ERYTHROMYCIN, TYLOX, DEMEROL, AND CODEINE. SOCIAL HISTORY: The patient is a former smoker. PHYSICAL EXAMINATION: GENERAL: The patient is well developed, well nourished, in no acute distress. HEENT: Normocephalic, atraumatic. Pupils are equal, round and reactive to light. Oropharynx is clear. NECK: Supple, no lymphadenopathy. LUNGS: Clear to auscultation bilaterally. HEART: Regular rate and rhythm. ABDOMEN: Soft, nontender, nondistended. EXTREMITIES: The left shoulder demonstrates no gross deformity. She has active forward elevation 100 degrees, passive of 140, abduction 90 degrees actively. External rotation is 20 degrees actively, 45 passively. Internal rotation is to her buttock. She has weakness with abduction and external rotation with positive Neer's and positive Hawkin sign. IMPRESSION: Left shoulder rotator cuff tear with probable SLAP tear. PLAN: Left shoulder arthroscopy, biceps tenotomy, acromioplasty, open rotator cuff repair. The risks, benefits, options, ramifications and recovery have been discussed at length with the patient. She understands and wishes to proceed. Job ID: [id number] DocumentID: [id number] Dictated Date: 07/17/2021 12:43:15 Soda Flaker Date: 07/17/2021 13:01:11 Dictated By: HEATHER TATUM MD
[~2021-08-02] VITALS: Ht 160 cm; Wt 86.4 kg
[2021-08-02] VITALS (10 sets, daily range): BP systolic 160–190; BP diastolic 86–104
[~2021-08-02 09:28] MED LIST changes: +DOXE25CA46 PO; +LACTATED RINGERS 1,000 ML IV PRN; +LAMO300T2 PO
--- OUTSIDE RECORDS SUMMARY | 2021-08-02 09:32 | XMS REPORT | Clinical Summary ---
Author Author [facility] Organization [facility] Address Unknown Phone Unavailable Care Team Providers Care Guide Delegate Name Role Phone TorresMamta Ange GARNICA Unavailable Lars Guerrero MD Unavailable Unknown, Unknown PCP Unavailable Vinny Poon DO Unavailable Source Comments Some departments are not documenting in the electronic medical record. If you d o not see the information that you expected, contact Release of Information in [facility] [employer] Information Management department at [phone] for further assistan ce in locating additional records.[facility] Allergies Comments Active Allergy Reactions Severity [...] tablet mouth daily. Take with food. Active On-K1-Npa-Jxox-Jka-Fhuc-B Take by 0 or [phone] mouth. ed-uexp-zz-mg tab Active clonazePAM (KLONOPIN) 1 Take 1 [...] Comments COLONOSCOPY 09/01/[address] Sharma at [facility] - normal, repeat in 10 years. [...] Fibrosis Brother Cancer-Hematologic Father possibly from Agent Wilson Thyroid Disease Mother details unknown Cancer-Breast Sister [...] 09/01/2018 ([facility] w/doc), 09/01/2018, Additional history exists Results Not on filefrom Last 3 Months Insurance Type Payer Benefit Subscriber ID Effective Phone Address Plan / Dates Group Medicare MEDICARE MEDICARE [id number] 2010- [phone] AND [address] [place] [address] [employer] MEDICAID A[employer] [id number] 2018-P [phone] [address] [address] [place] [address] Advance Directives Patient Plate Maker Zinc Explanation Type Date Recorded Advance Directive/DPOA Advance 06/12/2020 2:29 PM Directive/DPOA Care Teams Start Date End Date Guide Delegate Relationship Specialty 07/19/21 Unknown, Unknown, MD PCP - General 09/06/20 Mamta Macdonald [facility] [address] [facility] [address] [place] [address] 02/10/21 Lars Guerrero MD Surgery [address] [place] [address] 07/19/21 Vinny Poon, DO Family [address] [place] [address]
--- NOTE | 2021-08-02 11:19 | Progress Note-Pre Operative ---
Pre-Operative Progress Note H&P Reviewed The H&P was reviewed, patient examined and no changes noted. Date Seen by Provider: Aug 02, 2021 Time Seen by Provider: 11:19 Date H&P Reviewed: Aug 02, 2021 Time H&P Reviewed: 07:11 Pre-Operative Diagnosis: left rotator cuff and SLAP tears HEATHER TATUM MD Aug 02, 2021 11:19
--- NOTE | 2021-08-02 11:21 | Progress Note-Post Operative ---
Post-Operative Progess Note Surgeon (s)/Mechanical Technical Service Specialist (s) Surgeon HEATHER TATUM MD Mechanical Technical Service Specialist: Alex Theodore Pre-Operative Diagnosis left rotator cuff and SLAP tears Post-Operative Diagnosis left rotator cuff and SLAP tears Procedure & Operative Findings Date of Procedure 08/02/21 Procedure Performed/Findings left shoulder arthroscopic biceps tenotomy, acromioplasty and open rotator cuff repair Anesthesia Type GETA Estimated Blood Loss Estimated blood loss (mL): minimal Specimens/Packing Specimens Removed none Packing: none HEATHER TATUM MD Aug 02, 2021 11:21
[2021-08-02] MEDS ORDERED: CLINDAMYCIN 600 MG/50 ML IVPB 50 ML IV ONE (11:28)
[2021-08-02] MEDS ORDERED: SEVOFLURANE (ULTANE) 15 ML INHAL SOLN ONE ×2 (12:27→14:22)
[2021-08-02] MEDS ORDERED: LIDOCAINE PF 2% 5 ML (XYLOCAINE) VIAL ONE (12:27)
[2021-08-02] MEDS ORDERED: fentaNYL INJ 100 MCG/2 ML AMP ONE (12:27)
[2021-08-02] MEDS ORDERED: ROCURONIUM 10 MG/ML 5 ML SYRINGE IV ONE (12:27)
[2021-08-02] MEDS ORDERED: ONDANSETRON 4 MG/2 ML (SDV) Z0FRAN ONE (12:27)
[2021-08-02] MEDS ORDERED: proPOfol 200 MG/20 ML (DIPRIVAN) VIAL IV ONE (12:27)
[2021-08-02] MEDS ORDERED: ROPIVACAINE 5MG/ML 30ML VIAL ONE (12:28)
[2021-08-02] MEDS ORDERED: MIDAZOLAM 2 MG/2 ML (VERSED) VIAL ONE (12:28)
[2021-08-02] MEDS ORDERED: morphine PF (DURAMORPH) 10 MG/10 ML AMP ONE (13:57)
[2021-08-02] MEDS ORDERED: BUPIVACAINE 0.25% 30 ML (SENSORCAINE) VIAL ONE (13:57)
--- NOTE | 2021-08-02 14:41 | Anesthesia-General Post-Op ---
General Patient Condition Mental Status/LOC: Same as Preop Cardiovascular: Satisfactory Nausea/Vomiting: Absent Respiratory: Satisfactory Pain: Controlled Complications: Absent Post Op Complications Complications None Follow Up Care/Instructions Patient Instructions None needed. Anesthesia/Patient Condition Patient Condition Patient is doing well, no complaints, stable vital signs, no apparent adverse anesthesia problems. No complications reported per nursing. D/C home per [facility] Criteria: Yes EROS LOMAX CRNA Aug 02, 2021 14:41
[2021-08-02] MEDS ORDERED: fentaNYL INJ 100 MCG/2 ML AMP IVP ONE (14:45)
[2021-08-02] MEDS ORDERED: ONDANSETRON 4 MG/2 ML (SDV) Z0FRAN IVP PRN (14:45)
--- NOTE | 2021-08-03 00:30 | OPERATIVE REPORT ---
DATE OF SERVICE: 08/02/2021 PREOPERATIVE DIAGNOSES: 1. Left chronic rotator cuff tear. 2. Left shoulder SLAP tear. POSTOPERATIVE DIAGNOSES: 1. Left chronic rotator cuff tear. 2. Left shoulder SLAP tear. PROCEDURES: 1. Left shoulder open rotator cuff repair. 2. Left shoulder arthroscopic biceps tenotomy. 3. Left shoulder arthroscopic acromioplasty. SURGEON: Jose Tatum MD SQL ANALYST: Alex Theodore, who assisted throughout the procedure and closed the incisions. ANESTHESIA: General endotracheal by Vamsi Nichole CRNA. ESTIMATED BLOOD LOSS: Minimal. DRAINS: None. COMPLICATIONS: None. POSTOPERATIVE PLAN: Sling wear for 4 weeks with passive range of motion for 4 weeks. The patient was transferred to the recovery room awake and stable condition. STATEMENT OF MEDICAL NECESSITY: The patient is a 56-year-old female, who fell several months ago and complained of left shoulder pain and weakness. Ultimately, an MRI was obtained, which revealed a SLAP tear and a full-thickness supraspinatus tear. She tried injections, anti-inflammatories and rest without relief. Due to functional impairment and failure to improve with conservative measures, the patient elected to proceed with surgical intervention. Examination under anesthesia revealed forward elevation of 170 degrees, external rotation of 90 degrees and internal rotation of 80 degrees. Arthroscopic findings demonstrated full thickness 1 cm supraspinatus tear. The remainder of the rotator cuff was intact. There was a type 2 SLAP tear. No significant chondral abnormalities on the humeral head or glenoid. The subacromial space demonstrated dense bursitis with sloping of the anterolateral acromion. DESCRIPTION OF PROCEDURE: After risks and benefits of procedure were discussed and questions were answered, an informed consent was signed and placed on chart, the operative site was confirmed in the preoperative holding area, initialed by the surgeon. The patient was then transferred to the operating room and after adequate levels of general endotracheal anesthetic were obtained, a timeout was called, confirming the operative site. Examination under anesthesia was performed with above findings noted. The left shoulder and upper extremity were prepped and draped in the usual sterile fashion. The shoulder joint and subacromial spaces were both infiltrated with 20 mL each. A standard posterior portal was placed and a diagnostic arthroscopy was carried out with the above findings noted. The biceps anchor was released through an anterior portal, which was created in the interval between biceps, subscapularis and glenoid. The stump was debrided with a shaver. Scope was then redirected into the subacromial space. A lateral portal was created. The bursectomy was performed and the acromion was planed to a flat type 1 acromion and the lateral portal was then extended. The deltoid was split in line with its fibers leaving attached the acromion. The rotator cuff tear was mobilized. A single corkscrew type anchor was placed and a modified Michael-Darshan repair was performed and excellent repair was obtained with no undue tension with the arm at the side. The wound was copiously irrigated. The deltoid was repaired in a [id number] fashion using #2 FiberWire in [id number]-[id number] interrupted fashion. The wound was further irrigated, 3-0 Vicryl was used to reapproximate subcutaneous tissue and skin was closed with 4-0 nylon in a running alternating horizontal mattress fashion. The portal sites were closed with 4-0 nylon in simple interrupted fashion. Shoulder joint was injected with Duramorph. The portal sites were infiltrated with plain Marcaine and soft dressing was applied and the patient was transferred to the recovery room awake and in stable condition. Job ID: [id number] DocumentID: [id number] Dictated Date: 08/02/2021 14:33:37 Cigar Bander Date: 08/03/2021 00:29:58 Dictated By: JOSE TATUM MD
== END 2021-08-02 16:40 | disposition home or self-care (01) ==
LOC: SDC 09:28
PROVIDERS: ATTEND Orthopaedic Surgery
DX: M75.102 Unspecified rotator cuff tear or rupture of left shoulder, not specified as traumatic (principal); S43.432A Superior glenoid labrum lesion of left shoulder, initial encounter; E11.9 Type 2 diabetes mellitus without complications; G25.81 Restless legs syndrome; I10 Essential (primary) hypertension; G43.909 Migraine, unspecified, not intractable, without status migrainosus; E75.5 Other lipid storage disorders; Z90.49 Acquired absence of other specified parts of digestive tract; Z90.710 Acquired absence of both cervix and uterus; Z79.84 Long term (current) use of oral hypoglycemic drugs; Z79.899 Other long term (current) drug therapy; Z83.3 Family history of diabetes mellitus; Z82.49 Family history of ischemic heart disease and other diseases of the circulatory system
CPT/HCPCS: 23412; 29822; 29826; 82947; C1713

== ENCOUNTER → 2021-08-16 | Outpatient (CLI) | payer MEDICARE, MEDICAID ==
[~2021-08-16] MED LIST changes: -LACTATED RINGERS 1,000 ML IV PRN
--- NOTE | 2021-08-16 09:04 | Diagnostic Imaging Report ---
EXAMINATION: CT chest without contrast (lung screening). TECHNIQUE: Multiple contiguous axial images were obtained through the chest without the use of intravenous contrast according to lung cancer screening protocol. All CT scans use one or more of the following dose optimizing techniques: automated exposure control, MA and/or KvP adjustment based on patient size and exam type or iterative reconstruction. HISTORY: 44 pack year history of smoking. COMPARISON: None available. FINDINGS: Thyroid: The thyroid is normal. Mediastinum: Heart size is normal without significant pericardial effusion. Calcifications of the aorta and coronary vessels. Thoracic aorta is normal in caliber. No suspicious lymphadenopathy. Lungs and airways: The lungs are clear without consolidation, pleural effusion, or pneumothorax. There is a 0.4 x 0.3 cm left upper lobe pulmonary nodule (series 2 image 101 The airways are normal. Upper abdomen: The subphrenic structures are normal. Musculoskeletal: No suspicious osseous lesion or compression fracture. IMPRESSION: 1. A left upper lobe pulmonary nodule measuring up to 0.4 cm average. Recommend continued annual low-dose CT screening. LUNG-RADS CATEGORY: 2 MODIFIER: None Dictated by: Dictated on workstation # [id number]
== END ==
LOC: RAD 08:15
PROVIDERS: ATTEND Nurse Practitioner Family
DX: Z12.2 Encounter for screening for malignant neoplasm of respiratory organs (principal); Z87.891 Personal history of nicotine dependence; R91.1 Solitary pulmonary nodule
CPT/HCPCS: 71271

== ENCOUNTER 2021-09-08 18:23 | Emergency (ER) | payer MEDICARE, MEDICAID ==
[~2021-09-08] VITALS: Ht 160 cm; Wt 88.9 kg
[2021-09-08 19:25] VITALS: BP 184/99
--- NOTE | 2021-09-08 19:48 | ED EENT ---
History of Present Illness General Chief Complaint: Ear Problems Stated Complaint: SOMETHING IN EAR Nursing Triage Note: Pt arrives via POV from home for c/o left ear pain et hearing difficulty. Pt reports she attempted to remove her earing aid, however a small plastic piece remained in her ear. Source: patient Exam Limitations: no limitations (KATIA RODRIGUEZ APRN) History of Present Illness Date Seen by Provider: Sep 08, 2021 Time Seen by Provider: 19:45 Initial Comments To ER by private vehicle with reports of the rubber tip of the end of her hearing aid stuck in the left ear canal since earlier this evening she is unable to remove this at home. Timing/Duration: abrupt Severity: moderate Location: ear (L) Prearrival Treatment: no prearrival treatment Associated Symptoms: denies symptoms (AKTIA RODRIGUEZ APRN) Allergies and Home Medications Allergies Coded Allergies: Penicillins (Verified Allergy, Unknown, 03/07/21) Sulfa (Sulfonamide Antibiotics) (Verified Allergy, Unknown, 03/07/21) acetaminophen (Verified Allergy, Unknown, 06/16/21) cephalexin (Verified Allergy, Unknown, 06/16/21) codeine (Verified Allergy, Unknown, 03/07/21) erythromycin base (Verified Allergy, Unknown, 03/07/21) hydromorphone (Verified Allergy, Unknown, 06/07/21) meperidine (Verified Allergy, Unknown, 03/07/21) oxycodone (Verified Allergy, Unknown, 03/07/21) pregabalin (Verified Allergy, Unknown, 06/16/21) propoxyphene (Verified Allergy, Unknown, 03/07/21) Patient Home Medication List Home Medication List Reviewed: Yes (KATIA RODRIGUEZ APRN) Albuterol Sulfate (Proair Hfa) 1 Puff Puff, 2 PUFF IH UD, (Reported) Entered as Reported by: MCKENZIE PARRA on 06/07/21 1117 Aspirin (Aspirin) 81 Mg Tab.chew, 81 MG PO DAILY, (Reported) Entered as Reported by: MCKENZIE PARRA on 06/07/21 1150 Atorvastatin Calcium (Atorvastatin Calcium) 10 Mg Tablet, 10 MG PO HS, (Reported) Entered as Reported by: MCKENZIE PARRA on 06/07/21 1111 Cariprazine Hydrochloride (Vraylar) 1.5 Mg Capsule, 1.5 MG PO UD, (Reported) Entered as Reported by: MCKENZIE PARRA on 06/07/21 115 Doxepin HCl (Doxepin HCl) 25 Mg Capsule, 25 MG PO HS, (Reported) Entered as Reported by: MCKENZIE PARRA on 07/25/21 111 Fluoxetine HCl (Prozac) 20 Mg Capsule, 20 MG PO DAILY, (Reported) Entered as Reported by: MCKENZIE PARRA on 06/07/21 115 Hydroxyzine HCl (Hydroxyzine HCl) 10 Mg Tablet, 10 MG PO DAILY PRN for SLEEP, (Reported) Entered as Reported by: MCKENZIE PARRA on 06/07/21 1111 Lamotrigine (Lamotrigine ER) 300 Mg Tab.er.24, 300 MG PO DAILY, (Reported) Entered as Reported by: MCKENZIE PARRA on 07/25/21 111 Lisinopril (Lisinopril) 2.5 Mg Tablet, 10 MG PO DAILY, (Reported) Entered as Reported by: MCKENZEI PARRA on 06/07/21 115 Meloxicam (Mobic) 15 Mg Tablet, 15 MG PO DAILY, (Reported) Entered as Reported by: MCKENZIE PARRA on 06/07/21 115 Metformin HCl (Metformin HCl ER) 1,000 Mg Tab.er.24, 1,000 MG PO BID, (Reported) Entered as Reported by: MCKENZIE PARRA on 06/07/21 115 Metoprolol Succinate (Metoprolol Succinate) 50 Mg Tab.er.24h, 50 MG PO DAILY, (Reported) Entered as Reported by: MCKENZIE PARRA on 06/07/21 115 Multivitamin with Minerals (Multiple Vitamin) 1 Each Tablet, 1 EACH PO DAILY, (Reported) Entered as Reported by: MCKENZIE PARRA on 06/07/21 115 Pantoprazole Sodium (Pantoprazole Sodium) 40 Mg Tablet.dr, 40 MG PO BID, (Reported) Entered as Reported by: MCKENZIE PARRA on 06/07/21 115 Potassium Chloride (Potassium Chloride) 20 Meq Tablet.er, 20 MEQ PO TID, (Reported) Entered as Reported by: MCKENZIE PARRA on 06/07/21 111 Ropinirole HCl (Ropinirole HCl) 3 Mg Tablet, 3 MG PO DAILY, (Reported) Entered as Reported by: MCKENZIE Cassidy AIDA on 06/07/21 1150 Topiramate (Topiramate) 100 Mg Tablet, 100 MG PO BID, (Reported) Entered as Reported by: MCKENZIE Cassidy AIDA on 06/07/21 1117 Review of Systems Review of Systems Constitutional: see HPI Eyes: No Symptoms Reported Ears: See HPI Nose: no symptoms reported Mouth: no symptoms reported Throat: no symptoms reported Respiratory: no symptoms reported Cardiovascular: no symptoms reported Musculoskeletal: no symptoms reported (KATIA RODRIGUEZ APRN) Past Typicaq-Tdemxn-Nklhki Hx Patient Social History Tobacco Use?: No Smoking Status: Former Smoker Use of E-Cig and/or Vaping dev: No Substance use?: No Alcohol Use?: No Pt feels they are or have been: No (KATIA RODRIGUEZ APRN) Immunizations Up To Date Tetanus Booster (TDap): Less than 5yrs Influenza Vaccine Up-to-Date: Yes; Up-to-Date First/Initial COVID19 Vaccinat: july 27, 2020 Second COVID19 Vaccination Leon: october 06, 2020 Third COVID19 Vaccination Date: JUNE 2021 COVID19 Vaccine Premium Note Interest Calculator Clerk: Zoey (KATIA RODRIGUEZ APRN) Seasonal Allergies Seasonal Allergies: Yes (KATIA RODRIGUEZ APRN) Past Medical History Surgeries: Yes (l knee 2000, hysterectomy 1989, neck 2010, back 2011) Appendectomy, Gallbladder, Hysterectomy, Orthopedic Respiratory: Yes Asthma Currently Using CPAP: No Currently Using BIPAP: No Cardiac: Yes (enlarged heart chambers) Heart Murmur, High Cholesterol, Hypertension Neurological: Yes (lower right leg loss of tingling sensation per patient) Headaches /Migraines, Neuropathy Female Reproductive Disorders: Endometriosis, Ovarian Cyst [employer] History: Hysterectomy, Tubal Ligation Genitourinary: Yes (kidneys shut down in 2015) Kidney Infection Gastrointestinal: Yes Gastroesophageal Reflux, Gall Bladder Disease, Irritable Bowel Musculoskeletal: Yes (rls, sacral joint damage, osteoarthritis, rhabdomyolosis, cervical myelopat) Arthritis, Fibromyalgia Endocrine: Yes Diabetes, Non-Insulin dep HEENT: Yes Cataract, Macular Degeneration Hearing Impairment: Hard of Hearing, Bilateral Hearing Aide Cancer: No Psychosocial: Yes (mdd, nataly, borderline personality, panic disorder) Anxiety, PTSD, Bipolar, Personality Disorder, Depression Integumentary: No Blood Disorders: Yes (Anemia) (KATIA RODRIGUEZ APRN) Physical Exam Vital Signs Vital Signs - First Documented 09/08/21 19:25 Temp 36.7 Pulse 56 Resp 18 B/P (MAP) 184/99 (127) Pulse Ox 98 O2 Delivery Room Air (THOMAS ROSA MD) Height, Weight, BMI Height: '" Weight: lbs. oz. kg; 34.00 BMI Method: General Appearance: WD/WN, no apparent distress Eyes: bilateral eye normal inspection, bilateral eye PERRL, bilateral eye EOMI Ears: left ear other (There is a black rubber hearing aid piece within the left ear canal this was easily removed with a pair of microalligator forceps. There is cerumen within the canal obscuring view of the tympanic membrane. There is no bleeding.); bilateral ear auricle normal Mouth/Throat: normal mouth inspection, pharynx normal Neck: non-tender, full range of motion Gastrointestinal: normal bowel sounds, non tender, soft Neurologic/Psychiatric: alert, normal mood/affect, oriented x 3 (KATIA RODRIGUEZ APRN) Progress/Results/Core Measures Results/Orders Blood Pressure Mean: 127 Departure Impression Primary Impression: Acute foreign body of ear canal Disposition: HOME, SELF-CARE Condition: Stable Departure-Patient Inst. Decision time for Depature: 19:47 (KATIA RODRIGUEZ APRN) Referrals: ALECIA MOORE DO (PCP) Primary Care Physician NO,LOCAL PHYSICIAN (Family) Primary Care Physician Patient Instructions: Foreign Body in Ear, Child (DC) Add. Discharge Instructions: 1. Return to ER for any concerns. Follow-up with your doctor next week. All discharge instructions reviewed with patient and/or family. Voiced understanding. ATTENDING PHYSICIAN NOTE: I was physically present as attending physician in the emergency department during the care of this patient, but I was not directly involved in the decision making or delivery of care for this patient. (THOMAS ROSA MD) KATIA RODRIGUEZ APRN Sep 08, 2021 19:48 THOMAS ROSA MD Sep 09, 2021 08:21
== END 2021-09-08 20:13 | disposition home or self-care (01) ==
LOC: EDUNIT# 18:23 → ER 18:25
DX: T16.2XXA Foreign body in left ear, initial encounter (principal); J45.909 Unspecified asthma, uncomplicated; I10 Essential (primary) hypertension; E78.00 Pure hypercholesterolemia, unspecified; K21.9 Gastro-esophageal reflux disease without esophagitis; F31.9 Bipolar disorder, unspecified; E11.9 Type 2 diabetes mellitus without complications; Z87.891 Personal history of nicotine dependence; F41.9 Anxiety disorder, unspecified; Z79.82 Long term (current) use of aspirin; Z79.84 Long term (current) use of oral hypoglycemic drugs; Z79.899 Other long term (current) drug therapy
CPT/HCPCS: 99282

== ENCOUNTER 2021-09-12 12:32 | Emergency (ER) | payer MEDICARE, MEDICAID ==
[~2021-09-12] VITALS: Ht 160 cm; Wt 90.0 kg
[2021-09-12 12:32] VITALS: BP 176/91
--- NOTE | 2021-09-12 13:08 | ED General ---
General Chief Complaint: General Problems/Pain Stated Complaint: NAUSEA/DIZZINESS Nursing Triage Note: PT STATES SATURDAY NIGHT SHE STARTED SMELLING POT THRU HER PATEL AND SHE IS ALLERGIC TO POT. STATES SHE GETS NAUSEATED AND DIZZY WHEN SHE IS AROUND IT. ALSO COMPLAINS OF HIGH BP AND GLUCOSE. (IFTIKHAR CRUZ MED STUDENT) History of Present Illness Date Seen by Provider: Sep 12, 2021 Time Seen by Provider: 13:00 Initial Comments Mrs Pedroza is a 56 yo female with PMH of Diabetes and HTN who presents today due to feeling queezy and elevated blood pressure. She states that her neighbors started smoking marijuana on Saturday night and that she can smell the smoke in her apartment. She states that she has an adverse reaction to the smoke and it makes her feel sick. She has felt this way all weekend. Her symptoms include feeling weak and queezy. She also was found to have high blood pressure when it was checked. She tried eating some megan to help make her feel better but it di dn't help. She states that this has happened multiple times before, the earliest time being in 7th grade when a kid sat next to her and she could smell the smoke. She has been taking her home blood pressure medications as prescribed. ROS positive for tension feeling in the head, like a pre-headache, nausea, and weakness. Negative for fever, chills, vomiting, CP, palpitations, SOB, bowel or bladder changes, rashes, swelling. (IFTIKHAR CRUZ MED STUDENT) Allergies and Home Medications Allergies Coded Allergies: Penicillins (Verified Allergy, Unknown, 03/07/21) Sulfa (Sulfonamide Antibiotics) (Verified Allergy, Unknown, 03/07/21) acetaminophen (Verified Allergy, Unknown, 06/16/21) cephalexin (Verified Allergy, Unknown, 06/16/21) codeine (Verified Allergy, Unknown, 03/07/21) erythromycin base (Verified Allergy, Unknown, 03/07/21) hydromorphone (Verified Allergy, Unknown, 06/07/21) meperidine (Verified Allergy, Unknown, 03/07/21) oxycodone (Verified Allergy, Unknown, 03/07/21) pregabalin (Verified Allergy, Unknown, 06/16/21) propoxyphene (Verified Allergy, Unknown, 03/07/21) Patient Home Medication List Home Medication List Reviewed: Yes (KATIA RODRIGUEZ APRN) Albuterol Sulfate (Proair Hfa) 1 Puff Puff, 2 PUFF IH UD, (Reported) Entered as Reported by: MCKENZIE PARRA on 06/07/21 1117 Aspirin (Aspirin) 81 Mg Tab.chew, 81 MG PO DAILY, (Reported) Entered as Reported by: MCKENZIE PARRA on 06/07/21 1150 Atorvastatin Calcium (Atorvastatin Calcium) 10 Mg Tablet, 10 MG PO HS, (Reported) Entered as Reported by: MCKENZIE PARRA on 06/07/21 1111 Cariprazine Hydrochloride (Vraylar) 1.5 Mg Capsule, 1.5 MG PO UD, (Reported) Entered as Reported by: MCKENZIE PARRA on 06/07/21 115 Doxepin HCl (Doxepin HCl) 25 Mg Capsule, 25 MG PO HS, (Reported) Entered as Reported by: MCKENZIE PARRA on 07/25/21 1112 Fluoxetine HCl (Prozac) 20 Mg Capsule, 20 MG PO DAILY, (Reported) Entered as Reported by: MCKENZIE PARRA on 06/07/21 115 Hydroxyzine HCl (Hydroxyzine HCl) 10 Mg Tablet, 10 MG PO DAILY PRN for SLEEP, (Reported) Entered as Reported by: MCKENZIE PARRA on 06/07/21 1111 Lamotrigine (Lamotrigine ER) 300 Mg Tab.er.24, 300 MG PO DAILY, (Reported) Entered as Reported by: MCKENZIE PARRA on 07/25/21 1112 Lisinopril (Lisinopril) 2.5 Mg Tablet, 10 MG PO DAILY, (Reported) Entered as Reported by: MCKENZIE PARRA on 06/07/21 115 Meloxicam (Mobic) 15 Mg Tablet, 15 MG PO DAILY, (Reported) Entered as Reported by: MCKENZIE PARRA on 06/07/21 115 Metformin HCl (Metformin HCl ER) 1,000 Mg Tab.er.24, 1,000 MG PO BID, (Reported) Entered as Reported by: MCKENZIE PARRA on 06/07/21 115 Metoprolol Succinate (Metoprolol Succinate) 50 Mg Tab.er.24h, 50 MG PO DAILY, (Reported) Entered as Reported by: MCKENZIE PARRA on 06/07/21 1150 Multivitamin with Minerals (Multiple Vitamin) 1 Each Tablet, 1 EACH PO DAILY, (Reported) Entered as Reported by: MCKENZIE PARRA on 06/07/21 1150 Pantoprazole Sodium (Pantoprazole Sodium) 40 Mg Tablet.dr, 40 MG PO BID, (Report ed) Entered as Reported by: MCKENZIE PARRA on 06/07/21 1150 Potassium Chloride (Potassium Chloride) 20 Meq Tablet.er, 20 MEQ PO TID, (Reported) Entered as Reported by: MCKENZIE PARRA on 06/07/21 1117 Ropinirole HCl (Ropinirole HCl) 3 Mg Tablet, 3 MG PO DAILY, (Reported) Entered as Reported by: MCKENZIE PARRA on 06/07/21 1150 Topiramate (Topiramate) 100 Mg Tablet, 100 MG PO BID, (Reported) Entered as Reported by: MCKENZIE PARRA on 06/07/21 1117 Review of Systems Review of Systems Constitutional: see HPI; No chills, No fever EENTM: see HPI Respiratory: no symptoms reported Cardiovascular: no symptoms reported Genitourinary: no symptoms reported Musculoskeletal: no symptoms reported Skin: no symptoms reported Psychiatric/Neurological: No Symptoms Reported Hematologic/Lymphatic: No Symptoms Reported Immunological/Allergic: no symptoms reported (KATIA RODRIGUEZ APRN) All Other Systems Reviewed Negative Unless Noted: Yes (IFTIKHAR CRUZ VARSITY [employer]IA GROUP STUDENT) Past Jxoqkeg-Mqtoxt-Ziqoex Hx Immunizations Up To Date Tetanus Booster (TDap): Less than 5yrs First/Initial COVID19 Vaccinat: july 27, 2020 Second COVID19 Vaccination Leon: october 06, 2020 Third COVID19 Vaccination Date: JUNE 2021 COVID19 Vaccine Water Quality Control Engineer: MamaherbNawaf (Midisolaire STUDENT) Seasonal Allergies Seasonal Allergies: Yes (ANTHONY,Pinger STUDENT) Past Medical History Surgeries: Yes (l knee 2000, hysterectomy 1989, neck 2010, back 2011) Appendectomy, Gallbladder, Hysterectomy, Orthopedic Respiratory: Yes Asthma Currently Using CPAP: No Currently Using BIPAP: No Cardiac: Yes (enlarged heart chambers) Heart Murmur, High Cholesterol, Hypertension Neurological: Yes (lower right leg loss of tingling sensation per patient) Headaches /Migraines, Neuropathy Female Reproductive Disorders: Endometriosis, 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 History: Hysterectomy, Tubal Ligation Genitourinary: Yes (kidneys shut down in 2015) Kidney Infection Gastrointestinal: Yes Gastroesophageal Reflux, Gall Bladder Disease, Irritable Bowel Musculoskeletal: Yes (rls, sacral joint damage, osteoarthritis, rhabdomyolosis, cervical myelopat) Arthritis, Fibromyalgia Endocrine: Yes Diabetes, Non-Insulin dep HEENT: Yes Cataract, Macular Degeneration Hearing Impairment: Hard of Hearing, Bilateral Hearing Aide Cancer: No Psychosocial: Yes (mdd, nataly, borderline personality, panic disorder) Anxiety, PTSD, Bipolar, Personality Disorder, Depression Integumentary: No Blood Disorders: Yes (Anemia) (IFTIKHAR CRUZ VARSITY MEDIA GROUP STUDENT) Physical Exam Vital Signs Vital Signs - First Documented 09/12/21 12:32 Temp 35.8 Pulse 65 Resp 16 B/P (MAP) 176/91 (119) Pulse Ox 97 O2 Delivery Room Air (KATIA RODRIGUEZ APRN) Vital Signs Capillary Refill : Less Than 3 Seconds (IFTIKHAR CRUZ VARSITY [employer]IA [employer] STUDENT) Height, Weight, BMI Height: '" Weight: lbs. oz. kg; 35.00 BMI Method: General Appearance: No Apparent Distress, WD/WN Eyes: Bilateral Eye PERRL, Bilateral Eye EOMI HEENT: Pharynx Normal, Moist Mucous Membranes Neck: Supple Respiratory: Chest Non Tender, Lungs Clear, Normal Breath Sounds, No Accessory Muscle Use, No Respiratory Distress Cardiovascular: Regular Rate, Rhythm, No Edema, No Murmur, Normal Peripheral Pulses Gastrointestinal: Normal Bowel Sounds, Non Tender, Soft Extremity: Non Tender, No Calf Tenderness, No Pedal Edema Neurologic/Psychiatric: Alert, Oriented x3, Normal Mood/Affect Skin: Normal Color, Warm/Dry (IFTIKHAR CRUZ VARSITY MEDIA GROUP STUDENT) Progress/Results/Core Measures Suspected Sepsis SIRS Temperature: Pulse: 65 Respiratory Rate: 16 Blood Pressure 176 /91 Mean: 119 (IFTIKHAR CRUZ VARSITY MEDIA GROUP STUDENT) SIRS Laboratory Tests 09/12/21 13:29: White Blood Count 5.2 Laboratory Tests 09/12/21 13:29: Creatinine 0.73, Platelet Count 183, Total Bilirubin 0.2 (KATIA RODRIGUEZ APRN) Results/Orders Lab Results Laboratory Tests Test 09/12/21 12:38 09/12/21 13:29 09/12/21 13:58 Range/Units Glucometer 120 H 70-110 MG/DL White Blood Count 5.2 4.3-11.0 10^3/uL Red Blood Count 4.69 3.80-5.11 10^6/uL Hemoglobin 13.8 11.5-16.0 g/dL Hematocrit 42 35-52 % Mean Corpuscular Volume 90 80-99 fL Mean Corpuscular Hemoglobin 29 25-34 pg Mean Corpuscular Hemoglobin Concent 33 32-36 g/dL Red Cell Distribution Width 12.0 10.0-14.5 % Platelet Count 183 130-400 10^3/uL Mean Platelet Volume 9.5 9.0-12.2 fL Immature Granulocyte % (Auto) 0 % Neutrophils (%) (Auto) 60 42-75 % Lymphocytes (%) (Auto) 29 12-44 % Monocytes (%) (Auto) 7 0-12 % Eosinophils (%) (Auto) 3 0-10 % Basophils (%) (Auto) 0 0-10 % Neutrophils # (Auto) 3.2 1.8-7.8 10^3/uL Lymphocytes # (Auto) 1.5 1.0-4.0 10^3/uL Monocytes # (Auto) 0.4 0.0-1.0 10^3/uL Eosinophils # (Auto) 0.2 0.0-0.3 10^3/uL Basophils # (Auto) 0.0 0.0-0.1 10^3/uL Immature Granulocyte # (Auto) 0.0 0.0-0.1 10^3/uL Sodium Level 142 135-145 MMOL/L Potassium Level 4.1 3.6-5.0 MMOL/L Chloride Level 110 H 98-107 MMOL/L Carbon Dioxide Level 22 21-32 MMOL/L Anion Gap 10 5-14 MMOL/L Blood Urea Nitrogen 15 7-18 MG/DL Creatinine 0.73 0.60-1.30 MG/DL Estimat Glomerular Filtration Rate 96 BUN/Creatinine Ratio 21 Glucose Level 132 H 70-105 MG/DL Calcium Level 9.2 8.5-10.1 MG/DL Corrected Calcium 9.1 8.5-10.1 MG/DL Total Bilirubin 0.2 0.1-1.0 MG/DL Aspartate Amino Transf (AST/SGOT) 21 5-34 U/L Alanine Aminotransferase (ALT/SGPT) 28 0-55 U/L Alkaline Phosphatase 91 40-136 U/L Total Protein 6.4 6.4-8.2 GM/DL Albumin 4.1 3.2-4.5 GM/DL Urine Color YELLOW Urine Clarity CLEAR Urine pH 5.5 5-9 Urine Specific [place] 1.020 1.016-1.022 Urine Protein NEGATIVE NEGATIVE Urine Glucose (UA) NEGATIVE NEGATIVE Urine Ketones NEGATIVE NEGATIVE Urine Nitrite NEGATIVE NEGATIVE Urine Bilirubin NEGATIVE NEGATIVE Urine Urobilinogen 0.2 < = 1.0 MG/DL Urine Leukocyte Esterase NEGATIVE NEGATIVE Urine RBC (Auto) NEGATIVE NEGATIVE Urine RBC NONE /HPF Urine WBC NONE /HPF Urine Squamous Epithelial Cells NONE /HPF Urine Crystals NONE /LPF Urine Bacteria NEGATIVE /HPF Urine Casts NONE /LPF Urine Mucus NEGATIVE /LPF Urine Culture Indicated NO (KATIA RODRIGUEZ APRN) My Orders Orders - KATIA RODRIGUEZ APRN Cbc With Automated Diff (09/12/21 13:13) Comprehensive Metabolic Panel (09/12/21 13:13) Ed Iv/Invasive Line Start (09/12/21 13:13) Ua Culture If Indicated (09/12/21 13:13) Lactated Ringers (Lr 1000 Ml Iv Solution (09/12/21 13:15) Ondansetron Injection (Zofran Injectio (09/12/21 13:15) (KATIA RODRIGUEZ APRN) Medications Given in ED Current Medications Medications Dose Ordered Sig/Reagan Route Start Time Stop Time Status Last Admin Dose Admin Ondansetron HCl 8 mg ONCE ONCE IVP 09/12/21 13:15 09/12/21 13:16 DC 09/12/21 13:30 8 MG (KATIA RODRIGUEZ APRN) Vital Signs/I&O 09/12/21 12:32 Temp 35.8 Pulse 65 Resp 16 B/P (MAP) 176/91 (119) Pulse Ox 97 O2 Delivery Room Air (KATIA RODRIGUEZ APRN) Vital Signs/I&O Capillary Refill : Less Than 3 Seconds (IFTIKHAR CRUZ MED STUDENT) Blood Pressure Mean: 119 Point of Care Testing Finger Stick Blood Glucose: 121 (IFTIKHAR CRUZ MED STUDENT) Departure Communication (Admissions) 1315-I have seen the patient along with Iftikhar. Agree with the assessment and plan. We will start an IV, give her a bag of lactated Ringer's and 8 mg of Zofran. EMS reports that on scene her blood pressure was 199/119. It was then 185/110. On arrival here it was 176/101, currently down to 166/95 without inte rvention. She still has some nausea. She attributes her nausea to her neighbors smoking marijuana on the weekend and possibly methamphetamines. She denies any pain but does have dizziness and nausea. 1425-blood pressure 156/90. Heart rate 67. Symptoms improved. (KATIA RODRIGUEZ APRN) Impression Primary Impression: Nausea Additional Impression: Transient hypertension Disposition: 01 HOME, SELF-CARE Condition: Stable Departure-Patient Inst. Decision time for Depature: 14:26 (KATIA RODRIGUEZ APRN) Referrals: ALECIA MOORE DO (PCP/Family) Primary Care Physician Patient Instructions: Nausea and Vomiting, Adult, High Blood Pressure ED Add. Discharge Instructions: 1. Return to ER for any concerns. Follow-up with your doctor next week All discharge instructions reviewed with patient and/or family. Voiced understanding. ATTENDING PHYSICIAN NOTE: I was physically present as attending physician in the emergency department during the care of this patient, but I was not directly involved in the decision making or delivery of care for this patient. (THOMAS ROSA MD) IFTIKHAR CRUZ MED STUDENT Sep 12, 2021 13:08 KATIA RODRIGUEZ APRN Sep 12, 2021 13:16 THOMAS ROSA MD Sep 12, 2021 19:59
[2021-09-12] MEDS ORDERED: ONDANSETRON 4 MG/2 ML (SDV) Z0FRAN IVP ONE (13:15)
[2021-09-12] MEDS ORDERED: LACTATED RINGERS 1,000 ML IV SCH (13:15)
[2021-09-12 13:40] LABS: BASOPHILS % (AUTO) 0 % (0-10); EOSINOPHILS # (AUTO) 0.2 10^3/uL (0.0-0.3); EOSINOPHILS % (AUTO) 3 % (0-10); HEMATOCRIT 42 % (35-52); HEMOGLOBIN 13.8 g/dL (11.5-16.0); LYMPHOCYTES # (AUTO) 1.5 10^3/uL (1.0-4.0); LYMPHOCYTES % (AUTO) 29 % (12-44); MEAN CORPUSCULAR HEMOGLOBIN 29 pg (25-34); MEAN CORPUSCULAR HGB CONC 33 g/dL (32-36); MEAN CORPUSCULAR VOLUME 90 fL (80-99); MEAN PLATELET VOLUME 9.5 fL (9.0-12.2); MONOCYTES # (AUTO) 0.4 10^3/uL (0.0-1.0); MONOCYTES % (AUTO) 7 % (0-12); NEUTROPHILS # (AUTO) 3.2 10^3/uL (1.8-7.8); NEUTROPHILS % (AUTO) 60 % (42-75); PLATELET COUNT 183 10^3/uL (130-400); WHITE BLOOD COUNT 5.2 10^3/uL (4.3-11.0)
[2021-09-12 14:00] LABS: ALBUMIN 4.1 GM/DL (3.2-4.5); BILIRUBIN,TOTAL 0.2 MG/DL (0.1-1.0); CALCIUM 9.2 MG/DL (8.5-10.1); CREATININE SERUM 0.73 MG/DL (0.60-1.30); POTASSIUM 4.1 MMOL/L (3.6-5.0); TOTAL PROTEIN 6.4 GM/DL (6.4-8.2)
[2021-09-12 14:12] LABS: BILIRUBIN,URINE NEGATIVE (NEGATIVE); CLARITY,URINE CLEAR; COLOR,URINE YELLOW; GLUCOSE, URINE (UA) NEGATIVE (NEGATIVE); KETONES,URINE NEGATIVE (NEGATIVE); LEUKOCYTE ESTERASE ,URINE NEGATIVE (NEGATIVE); NITRITE,URINE NEGATIVE (NEGATIVE); PH,URINE 5.5 (5-9); PROTEIN,URINE NEGATIVE (NEGATIVE)
[2021-09-12 14:24] LABS: BACTERIA,URINE NEGATIVE /HPF
== END 2021-09-12 14:37 | disposition home or self-care (01) ==
LOC: EDUNIT# 12:32 → ER 12:33
DX: R11.0 Nausea (principal); I10 Essential (primary) hypertension; J45.909 Unspecified asthma, uncomplicated; E78.00 Pure hypercholesterolemia, unspecified; K21.9 Gastro-esophageal reflux disease without esophagitis; E11.9 Type 2 diabetes mellitus without complications; F41.9 Anxiety disorder, unspecified; F31.9 Bipolar disorder, unspecified; Z79.82 Long term (current) use of aspirin; Z79.84 Long term (current) use of oral hypoglycemic drugs; Z79.899 Other long term (current) drug therapy
CPT/HCPCS: 36415; 80053; 81000; 82947; 85025

== ENCOUNTER 2021-12-02 18:20 | Emergency (ER) | payer MEDICARE, MEDICAID ==
[~2021-12-02] VITALS: Ht 160 cm; Wt 94.0 kg
[2021-12-02] MEDS ORDERED: ONDANSETRON 4 MG (ZOFRAN) ORAL DISSOLVE TAB SL STA (19:07)
[2021-12-02] MEDS ORDERED: RX-ONDANSETRON 4 MG ODT (ZOFRAN) PPK #4 PO STA (19:21)
[2021-12-02] MEDS ORDERED: ONDA4TAB11 PO (19:21)
--- NOTE | 2021-12-02 19:21 | ED General ---
General Chief Complaint: Abdominal/GI Problems Stated Complaint: COVID POSITIVE/NAUSEA/STOMACH PAIN Nursing Triage Note: PT PRESENTS TO ED FOR NAUSEA THAT STARTED YESTERDAY. TESTED POSITIVE FOR COVID 11/29/21 AT [facility]. PT IS LOOKING TO GET SOMETHING FOR NAUSEA "SO IT DOESN'T GET WORSE". PT AMB. TO ROOM 10 WITHOUT DIFFICULTY. Source of Information: Patient History of Present Illness Date Seen by Provider: December 02, 2021 Time Seen by Provider: 18:54 Initial Comments PT ARRIVES VIA POV FROM HOME STATES SHE BEGAN GETTING SICK WITH COLD SYMPTOMS ON 11/26/21 BEGAN RUNNING SUBJECTIVE FEVER ON SATURDAY WENT TO [facility] ON SATURDAY AND TESTED + FOR COVID-19. NO RX GIVEN PT STATES SHE BEGAN HAVING NAUSEA TODAY, NO VOMITING. STATES SHE IS HERE FOR SOMETHING FOR NAUSEA SO SHE DOESN'T START VOMITING AND GET WORSE PT DENIES FEVER TODAY NO DIFFICULTY BREATHING NO HEADACHE OR BODY ACHES NO LOSS OF TASTE/SMELL PT IS ABLE TO DRINK LIQUIDS AND VOIDING A NORMAL AMOUNT PT HAS HAD LOOSE STOOLS BUT HAS IBS AND LOOSE STOOLS ARE NORMAL FOR HER PT IS DIABETIC--DOES NOT CHECK BLOOD SUGAR OR FOLLOW DIABETIC DIET, ALSO HAS HTN PT IS ALSO A SMOKER PT HAS NOT TAKEN ANYTHING FOR SYMPTOMS PT HAS HAD COVID-19 VACCINE X 3--LAST VACCINE WAS IN JUNE. PT LIVES AT [facility]. LIVES ALONE DOES NOT KNOW OF ANY SICK CONTACTS. [facility] Allergies and Home Medications Allergies Coded Allergies: Penicillins (Verified Allergy, Unknown, 03/07/21) Sulfa (Sulfonamide Antibiotics) (Verified Allergy, Unknown, 03/07/21) acetaminophen (Verified Allergy, Unknown, 06/16/21) cephalexin (Verified Allergy, Unknown, 06/16/21) codeine (Verified Allergy, Unknown, 03/07/21) erythromycin base (Verified Allergy, Unknown, 03/07/21) hydromorphone (Verified Allergy, Unknown, 06/07/21) meperidine (Verified Allergy, Unknown, 03/07/21) oxycodone (Verified Allergy, Unknown, 03/07/21) pregabalin (Verified Allergy, Unknown, 06/16/21) propoxyphene (Verified Allergy, Unknown, 03/07/21) Patient Home Medication List Home Medication List Reviewed: Yes Albuterol Sulfate (Proair Hfa) 1 Puff Puff, 2 PUFF IH UD, (Reported) Entered as Reported by: MCKENZIE PARRA on 06/07/21 1117 Aspirin (Aspirin) 81 Mg Tab.chew, 81 MG PO DAILY, (Reported) Entered as Reported by: MCKENZIE PARRA on 06/07/21 115 Atorvastatin Calcium (Atorvastatin Calcium) 10 Mg Tablet, 10 MG PO HS, (Reported) Entered as Reported by: MCKENZIE PARRA on 06/07/21 1111 Cariprazine Hydrochloride (Vraylar) 1.5 Mg Capsule, 1.5 MG PO UD, (Reported) Entered as Reported by: MCKENZIE PARRA on 06/07/21 115 Doxepin HCl (Doxepin HCl) 25 Mg Capsule, 25 MG PO HS, (Reported) Entered as Reported by: MCKENZIE PARRA on 07/25/21 111 Fluoxetine HCl (Prozac) 20 Mg Capsule, 20 MG PO DAILY, (Reported) Entered as Reported by: MCKENZIE PARRA on 06/07/21 115 Hydroxyzine HCl (Hydroxyzine HCl) 10 Mg Tablet, 10 MG PO DAILY PRN for SLEEP, (Reported) Entered as Reported by: MCKENZIE PARRA on 06/07/21 1111 Lamotrigine (Lamotrigine ER) 300 Mg Tab.er.24, 300 MG PO DAILY, (Reported) Entered as Reported by: MCKENZIE PARRA on 07/25/21 111 Lisinopril (Lisinopril) 2.5 Mg Tablet, 10 MG PO DAILY, (Reported) Entered as Reported by: MCKENZIE PARRA on 06/07/21 115 Meloxicam (Mobic) 15 Mg Tablet, 15 MG PO DAILY, (Reported) Entered as Reported by: MCKENZIE PARRA on 06/07/21 115 Metformin HCl (Metformin HCl ER) 1,000 Mg Tab.er.24, 1,000 MG PO BID, (Reported) Entered as Reported by: MCKENZIE PARRA on 06/07/21 115 Metoprolol Succinate (Metoprolol Succinate) 50 Mg Tab.er.24h, 50 MG PO DAILY, (Reported) Entered as Reported by: MCKENZIE PARRA on 06/07/21 115 Multivitamin with Minerals (Multiple Vitamin) 1 Each Tablet, 1 EACH PO DAILY, (Reported) Entered as Reported by: MCKENZIE PARRA on 06/07/21 115 Ondansetron (Ondansetron Odt) 4 Mg Tab.rapdis, 4 MG PO Q4H Prescribed by: IRAM RONQUILLO on 12/02/211920 Pantoprazole Sodium (Pantoprazole Sodium) 40 Mg Tablet.dr, 40 MG PO BID, (Reported) Entered as Reported by: MCKENZIE PARRA on 06/07/21 115 Potassium Chloride (Potassium Chloride) 20 Meq Tablet.er, 20 MEQ PO TID, (Reported) Entered as Reported by: MCKENZIE PARRA on 06/07/21 111 Ropinirole HCl (Ropinirole HCl) 3 Mg Tablet, 3 MG PO DAILY, (Reported) Entered as Reported by: MCKENZIE PARRA on 06/07/21 115 Topiramate (Topiramate) 100 Mg Tablet, 100 MG PO BID, (Reported) Entered as Reported by: MCKENZIE PARRA on 06/07/211116 Review of Systems Review of Systems Constitutional: see HPI, fever EENTM: see HPI, nose congestion Respiratory: see HPI, cough; No short of breath Cardiovascular: no symptoms reported Gastrointestinal: No abdominal pain, No loss of appetite; nausea; No vomiting Genitourinary: no symptoms reported; No decreased output Musculoskeletal: no symptoms reported Skin: no symptoms reported Psychiatric/Neurological: No Symptoms Reported Hematologic/Lymphatic: No Symptoms Reported Immunological/Allergic: no symptoms reported Past Qgalmaj-Djjzcw-Pybuwa Hx Patient Social History Tobacco Use?: Yes Tobacco type used: Cigarettes Smoking Status: Current Everyday Smoker Substance use?: No Alcohol Use?: Yes Pt feels they are or have been: No Immunizations Up To Date Tetanus Booster (TDap): Less than 5yrs Influenza Vaccine Up-to-Date: Yes; Up-to-Date First/Initial COVID19 Vaccinat: 07/2020 Second COVID19 Vaccination Leon: 09/2020 Third COVID19 Vaccination Date: JUNE 2021 COVID19 Vaccine Scada Technician: STEVE Seasonal Allergies Seasonal Allergies: Yes Past Medical History Surgery/Hospitalization HX: PMH;DM, RESTLESS LEG SYNDROME, DEPRESSION, ANIXETY, BIPOLAR. SURGERY;ROTATOR CUFF , HYST. AND APPENDECTOMY 1989, LT KNEE SCOPE 05/2021, GALLBLADDER 2002, NECK FUSION 03/2011, BACK FUSION 06/2012. 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 Genitourinary: Yes (kidneys shut down in 2014) Kidney Infection, Bladder Infection Gastrointestinal: Yes Gastroesophageal Reflux, Gall Bladder Disease, Irritable Bowel Musculoskeletal: Yes (rls, sacral joint damage, osteoarthritis, rhabdomyolosis, cervical myelopat) Arthritis, Fibromyalgia, Chronic Back Pain Endocrine: Yes Diabetes, Non-Insulin dep HEENT: Yes Cataract, Macular Degeneration Hearing Impairment: Hard of Hearing, Bilateral Hearing Aide Cancer: No Psychosocial: Yes (mdd, nataly, borderline personality, panic disorder) Anxiety, PTSD, Bipolar, Personality Disorder, Depression Integumentary: No Blood Disorders: Yes (Anemia) Family Medical History SOCIAL HISTORY: SMOKES 1-2 PPD ETOH--HISTORY OF HEAVY USE, NOW ONLY OCCASIONAL USE, BUT HEAVY WHEN SHE DOES DRINK DENIES DRUG USE Physical Exam Vital Signs Vital Signs - First Documented 12/02/21 18:52 Temp 36.1 Pulse 71 Resp 18 B/P (MAP) 180/89 (119) Pulse Ox 97 O2 Delivery Room Air Capillary Refill : Less Than 3 Seconds Height, Weight, BMI Height: '" Weight: lbs. oz. kg; 36.00 BMI Method: General Appearance: No Apparent Distress, WD/WN, Other (DOES NOT APPEAR ILL OR TO BE IN ANY DISCOMFORT OR DISTRESS) HEENT: PERRL/EOMI, TMs Normal, Normal ENT Inspection, Pharynx Normal Neck: Full Range of Motion, Normal Inspection, Non Tender, Supple Respiratory: Normal Breath Sounds, No Accessory Muscle Use, No Respiratory Distress Cardiovascular: Regular Rate, Rhythm, No Edema, No JVD, No Murmur, Normal Peripheral Pulses Gastrointestinal: Non Tender, Soft Back: No CVA Tenderness Extremity: Normal Inspection Neurologic/Psychiatric: Alert, Oriented x3, No Motor/Sensory Deficits, Normal Mood/Affect, community case manager II-XII Norm as Tested Skin: Normal Color, Warm/Dry Progress/Results/Core Measures Suspected Sepsis SIRS Temperature: Pulse: 71 Respiratory Rate: 18 Blood Pressure 180 /89 Mean: 119 Results/Orders My Orders Orders - IRAM RONQUILLO DO Ondansetron Oral Dissolve Tab (Zofran (12/02/21 19:07) Rx-Ondansetron Po (Rx-Zofran Po) (12/02/21 19:21) Vital Signs/I&O 12/02/21 18:52 Temp 36.1 Pulse 71 Resp 18 B/P (MAP) 180/89 (119) Pulse Ox 97 O2 Delivery Room Air Capillary Refill : Less Than 3 Seconds Blood Pressure Mean: 119 Progress Note : Progress Note PLACED IN ISOLATION ROOM PPE WORN AT ALL TIMES GIVEN ZOFRAN ODT NO VOMITING DURING ER STAY Departure Impression Primary Impression: COVID-19 virus infection Disposition: 01 HOME, SELF-CARE Condition: Stable Departure-Patient Inst. Decision time for Depature: 19:19 Referrals: ALECIA MOORE DO (PCP/Family) Primary Care Physician Patient Instructions: COVID-19 (DC), Preventing the Spread of an Infectious Disease Add. Discharge Instructions: LOTS OF CLEAR LIQUIDS--WATER, BROTH, JELLO, GATORADE BRATS DIET--BANANAS, RICE, APPLESAUCE, TOAST, SALTINES TYLENOL AND MOTRIN NEEDED FOR PAIN OR FEVER OVER THE COUNTER MEDICATIONS FOR COUGH AND CONGESTION FOLLOW UP WITH [facility] IN 2-3 DAYS IF NO BETTER CONTINUE QUARANTINE FOR A TOTAL OF 10 DAYS FROM ONSET OF SYMPTOMS All discharge instructions reviewed with patient and/or family. Voiced understanding. Scripts Ondansetron (Ondansetron Odt) 4 Mg Tab.rapdis 4 MG PO Q4H for Nausea/Vomiting, #10 TAB Prov: IRAM RONQUILLO DO 12/02/21 IRAM RONQUILLO DO December 02, 2021 19:21
[2021-12-02 19:30] VITALS: BP 165/97
== END 2021-12-02 19:30 | disposition home or self-care (01) ==
LOC: EDUNIT# 18:20 → ER 18:22
DX: U07.1 COVID-19 (principal); F17.210 Nicotine dependence, cigarettes, uncomplicated; Z73.0 Burn-out
CPT/HCPCS: 99283

== ENCOUNTER → 2021-12-26 | Outpatient (CLI) | payer MEDICARE, MEDICAID ==
[~2021-12-26] MED LIST changes: +ONDA4TAB11 PO
--- NOTE | 2021-12-26 10:52 | Diagnostic Imaging Report ---
INDICATION: Postmenopausal screening COMPARISON: Baseline FINDINGS: AP Spine L1-L4: [BMD (g/cm2): na] [T-Score: na] [Z-Score: na] [BMD Previous: na] [BMD % Change: na] LT Hip Neck: [BMD (g/cm2): 0.703] [T-Score: -2.4] [Z-Score: -1.9] LT Hip Total: [BMD (g/cm2):0.915] [T-Score:-0.7] [Z-Score: -0.7] [BMD Previous: na] [BMD % Change: na] RT Hip Neck: [BMD (g/cm2):0.711] [T-Score:-2.1] [Z-Score:-1.7] RT Hip Total: [BMD (g/cm2):0.944] [T-score:-0.5] [Z-Score:-0.4] [BMD Previous:na] [BMD % Change:na] *Indicates significant change from prior examination based on 95% confidence level. World Health Organization criteria for BMD interpretation classify patients as Normal (T-score at or above -1.0), Osteopenic (T-score between -1.0 and -2.5) or Osteoporotic (T-score at or below -2.5). LIMITATIONS AND MODIFICATION: None. FRACTURE RISK (FRAX SCORE): The ten year probability of (%): Major Osteoporotic Fracture: [16.0] Hip Fracture: [2.8] IMPRESSION: 1. Osteopenia (Low bone mass). 2. Baseline examination. 3. See below National Osteoporosis Foundation guidelines on when to potentially initiate pharmacologic therapy. Based on the National Osteoporosis Foundation Guidelines, pharmacologic treatment should be initiated in any of the following, unless clinical conditions suggest otherwise: * Any patient with prior fragility fracture of the hip or vertebrae. A spine fracture indicates 5X risk for subsequent spine fracture and 2X risk for subsequent hip fracture. * Osteoporosis (T-score <-2.5). * Postmenopausal women and men age 50 and older with low bone mass/osteopenia (T-score between -1.0 and -2.5) by DXA and 10-year major osteoporotic fracture greater than 20% or a 10-year probability of hip fracture greater than 3%. These fracture risks are supplied above in the FRAX score, if applicable. * Clinician judgement and/or patient preferences may indicate treatment for people with 10-year fracture probabilities above or below these levels. Dictated by: Dictated on workstation # [id number]
== END ==
LOC: RAD 08:41
PROVIDERS: ATTEND Pediatrics
DX: M85.80 Other specified disorders of bone density and structure, unspecified site (principal); Z78.0 Asymptomatic menopausal state
CPT/HCPCS: 77080

== ENCOUNTER 2022-03-04 09:10 | Emergency (ER) | payer MEDICARE, MEDICAID ==
[~2022-03-04] VITALS: Ht 160 cm; Wt 95.3 kg
[2022-03-04 09:28] VITALS: BP 161/105
--- NOTE | 2022-03-04 09:54 | ED Back Pain ---
General Chief Complaint: Back Problems Stated Complaint: BACK PAIN Nursing Triage Note: PT TO RM 4 VIA WC W C/O LOWER BACK PAIN THAT BEGAN YESTERDAY. PT DENIES INJURY TO BACK, REPORTS HX OF BACK SURGERY. PT TRIED TRAMADOL AND VOLTAREN GEL, REPORTS NO RELIEF. A&OX4. Source of Information: Patient Exam Limitations: No Limitations History of Present Illness Date Seen by Provider: Mar 04, 2022 Time Seen by Provider: 09:49 Initial Comments Patient is a 56-year-old female who presents to the emergency department today with a chief complaint of low back pain onset 24 hours prior. She denies any heavy lifting, straining, pushing pulling or trauma. She has had previous back surgery. She has been using her prescribed tramadol and some qirs-lxg-ukxkdit anti-inflammatory creams. This has not helped. She states the pain radiates around her low back into her lower abdomen. She denies blood in her urine or stools. Movement makes the pain worse, nothing makes it any better. No dysuria, urgency or frequency. No weakness in her legs or numbness. Pain does not radiate past her knees. All other review systems reviewed and negative except as stated Location: Lumbar Spine, Paraspinous Muscles Timing/Duration: 1-2 Days Severity: Moderate Pain/Injury Location: Back Radiation: Buttocks, Other (around abdomen) Associated Symptoms: denies symptoms Allergies and Home Medications Allergies Coded Allergies: Penicillins (Verified Allergy, Unknown, 03/07/21) Sulfa (Sulfonamide Antibiotics) (Verified Allergy, Unknown, 03/07/21) acetaminophen (Verified Allergy, Unknown, 06/16/21) cephalexin (Verified Allergy, Unknown, 06/16/21) codeine (Verified Allergy, Unknown, 03/07/21) erythromycin base (Verified Allergy, Unknown, 03/07/21) hydromorphone (Verified Allergy, Unknown, 06/07/21) meperidine (Verified Allergy, Unknown, 03/07/21) oxycodone (Verified Allergy, Unknown, 03/07/21) pregabalin (Verified Allergy, Unknown, 06/16/21) propoxyphene (Verified Allergy, Unknown, 03/07/21) Patient Home Medication List Home Medication List Reviewed: Yes Albuterol Sulfate (Proair Hfa) 1 Puff Puff, 2 PUFF IH UD, (Reported) Entered as Reported by: MCKENZIE PARRA on 06/07/21 1117 Aspirin (Aspirin) 81 Mg Tab.chew, 81 MG PO DAILY, (Reported) Entered as Reported by: MCKENZIE PARRA on 06/07/21 115 Atorvastatin Calcium (Atorvastatin Calcium) 10 Mg Tablet, 10 MG PO HS, (Reported) Entered as Reported by: MCKENZIE PARRA on 06/07/21 1111 Cariprazine Hydrochloride (Vraylar) 1.5 Mg Capsule, 1.5 MG PO UD, (Reported) Entered as Reported by: MCKENZIE PARRA on 06/07/21 115 Doxepin HCl (Doxepin HCl) 25 Mg Capsule, 25 MG PO HS, (Reported) Entered as Reported by: MCKENZIE PARRA on 07/25/21 111 Fluoxetine HCl (Prozac) 20 Mg Capsule, 20 MG PO DAILY, (Reported) Entered as Reported by: MCKENZIE PARRA on 06/07/21 115 Hydroxyzine HCl (Hydroxyzine HCl) 10 Mg Tablet, 10 MG PO DAILY PRN for SLEEP, (Reported) Entered as Reported by: MCKENZIE PARRA on 06/07/21 1111 Lamotrigine (Lamotrigine ER) 300 Mg Tab.er.24, 300 MG PO DAILY, (Reported) Entered as Reported by: MCKENZIE PARRA on 07/25/21 111 Lisinopril (Lisinopril) 2.5 Mg Tablet, 10 MG PO DAILY, (Reported) Entered as Reported by: MCKENZIE PARRA on 06/07/21 115 Meloxicam (Mobic) 15 Mg Tablet, 15 MG PO DAILY, (Reported) Entered as Reported by: MCKENZIE PARRA on 06/07/21 115 Metformin HCl (Metformin HCl ER) 1,000 Mg Tab.er.24, 1,000 MG PO BID, (Reported) Entered as Reported by: MCKENZIE PARRA on 06/07/21 115 Methocarbamol (Methocarbamol) 750 Mg Tablet, 750 MG PO Q6-8HR Prescribed by: NILESH ADAMS on 03/04/22 1101 Metoprolol Succinate (Metoprolol Succinate) 50 Mg Tab.er.24h, 50 MG PO DAILY, (Reported) Entered as Reported by: MCKENZIE PARRA on 06/07/21 1150 Multivitamin with Minerals (Multiple Vitamin) 1 Each Tablet, 1 EACH PO DAILY, (R eported) Entered as Reported by: MCKENZIE PARRA on 06/07/21 115 Ondansetron (Ondansetron Odt) 4 Mg Tab.rapdis, 4 MG PO Q4H Prescribed by: IRAM RONQUILLO on 12/02/21 192 Pantoprazole Sodium (Pantoprazole Sodium) 40 Mg Tablet.dr, 40 MG PO BID, (Reported) Entered as Reported by: MCKENZIE PARRA on 06/07/21 115 Potassium Chloride (Potassium Chloride) 20 Meq Tablet.er, 20 MEQ PO TID, (Reported) Entered as Reported by: MCKENZIE PARRA on 06/07/21 111 Ropinirole HCl (Ropinirole HCl) 3 Mg Tablet, 3 MG PO DAILY, (Reported) Entered as Reported by: MCKENZIE PARRA on 06/07/21 115 Topiramate (Topiramate) 100 Mg Tablet, 100 MG PO BID, (Reported) Entered as Reported by: MCKENZIE PARRA on 06/07/21 111 Review of Systems Constitutional: see HPI EENTM: no symptoms reported Respiratory: no symptoms reported Cardiovascular: no symptoms reported Gastrointestinal: abdominal pain Genitourinary: no symptoms reported; No dysuria, No frequency, No hematuria : No Musculoskeletal: back pain, muscle cramps Skin: no symptoms reported All Other Systems Reviewed Negative Unless Noted: Yes Past Tlrjddk-Lgneqz-Auvrxf Hx Patient Social History Tobacco Use?: Yes Smoking Status: Current Everyday Smoker Use of E-Cig and/or Vaping dev: No Substance use?: No Alcohol Use?: No Immunizations Up To Date Tetanus Booster (TDap): Less than 5yrs First/Initial COVID19 Vaccinat: 07/2020 Second COVID19 Vaccination Leon: 09/2020 Third COVID19 Vaccination Date: 06/2021 COVID19 Vaccine Fitter Welder: STEVE Seasonal Allergies Seasonal Allergies: Yes Past Medical History Surgery/Hospitalization HX: PMH;DM, RESTLESS LEG SYNDROME, DEPRESSION, ANIXETY, BIPOLAR. SURGERY;ROTATOR CUFF , HYST. AND APPENDECTOMY 1989, LT KNEE SCOPE 05/2021, GALLBLADDER 2002, NECK FUSION 03/2011, BACK FUSION 06/2012. 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 Genitourinary: Yes (kidneys shut down in 2014) Kidney Infection, Bladder Infection Gastrointestinal: Yes Gastroesophageal Reflux, Gall Bladder Disease, Irritable Bowel Musculoskeletal: Yes (rls, sacral joint damage, osteoarthritis, rhabdomyolosis, cervical myelopat) Arthritis, Fibromyalgia, Chronic Back Pain Endocrine: Yes Diabetes, Non-Insulin dep HEENT: Yes Cataract, Macular Degeneration Hearing Impairment: Hard of Hearing, Bilateral Hearing Aide Cancer: No Psychosocial: Yes (mdd, nataly, borderline personality, panic disorder) Anxiety, PTSD, Bipolar, Personality Disorder, Depression Integumentary: No Blood Disorders: Yes (Anemia) Family Medical History SOCIAL HISTORY: SMOKES 1-2 PPD ETOH--HISTORY OF HEAVY USE, NOW ONLY OCCASIONAL USE, BUT HEAVY WHEN SHE DOES DRINK DENIES DRUG USE Physical Exam Vital Signs Vital Signs - First Documented 03/04/22 09:28 Temp 36.7 Pulse 68 Resp 20 B/P (MAP) 161/105 (123) Pulse Ox 96 O2 Delivery Room Air Capillary Refill : Less Than 3 Seconds Height, Weight, BMI Height: '" Weight: lbs. oz. kg; 37.00 BMI Method: General Appearance: No Apparent Distress, WD/WN HEENT: PERRL/EOMI Neck: Normal Inspection Cardiovascular: Regular Rate, Rhythm, Normal Peripheral Pulses Respiratory: Lungs Clear, Normal Breath Sounds, No Accessory Muscle Use, No Respiratory Distress Gastrointestinal: Normal Bowel Sounds, Non Tender, Soft Back: Normal Inspection, Muscle Spasm; No Vertebral Tenderness Extremity: Normal Capillary Refill, Normal Inspection, Normal Range of Motion, No Calf Tenderness Neurologic/Psychiatric: Alert, Oriented x3, No Motor/Sensory Deficits, Normal Mood/Affect Skin: Normal Color, Warm/Dry Progress/Results/Core Measures Results/Orders My Orders Orders - NILESH ADAMS MD Ketorolac Injection (Toradol Injection) (03/04/22 10:00) Orphenadrine Inj (Ed Only) (Norflex Inje (03/04/22 10:00) Medications Given in ED Vital Signs/I&O 03/04/22 09:28 Temp 36.7 Pulse 68 Resp 20 B/P (MAP) 161/105 (123) Pulse Ox 96 O2 Delivery Room Air Blood Pressure Mean: 123 Progress Progress Note : Time: 11:01 Progress Note After Toradol and Norflex patient feels much improved. Departure Impression Primary Impression: Low back pain Qualified Codes: M54.50 - Low back pain, unspecified Disposition: HOME, SELF-CARE Condition: Improved Departure-Patient Inst. Decision time for Depature: 11:00 Referrals: ALECIA MOORE DO (PCP/Family) Primary Care Physician Patient Instructions: Low Back Pain in Adults Add. Discharge Instructions: Use the Salonpas patches with your tramadol and heating pads. I have given you a prescription for muscle relaxers you can take 1, 3 times daily. If you have any loss of function of your lower extremities or loss of function of bowel or bladder, numbness of your groin or any other emergent concerning symptoms please come back to the emergency room for reevaluation. Please keep your follow-up appointments with your primary care doctor and for your MRI on Saturday. Scripts Methocarbamol (Methocarbamol) 750 Mg Tablet 750 MG PO Q6-8HR for Back Pain, #30 TAB Prov: NILESH ADAMS MD 03/04/22 Copy Copies To 1: ALECIA MOORE KATHRYN M MD Mar 04, 2022 09:54
[2022-03-04] MEDS ORDERED: KETOROLAC 30 MG/ML VIAL IM ONE (10:00)
[2022-03-04] MEDS ORDERED: ORPHENADRINE 60 MG/2 ML (NORFLEX) AMP (ED ONLY) IM ONE (10:00)
[2022-03-04] MEDS ORDERED: METH-732 PO (11:01)
== END 2022-03-04 11:22 | disposition home or self-care (01) ==
LOC: EDUNIT# 09:10 → ER 09:12
DX: M54.50 Low back pain, unspecified (principal); F17.200 Nicotine dependence, unspecified, uncomplicated; Z98.1 Arthrodesis status; Z98.890 Other specified postprocedural states
CPT/HCPCS: 99284

== ENCOUNTER 2022-04-04 18:30 | Emergency (ER) | payer MEDICARE, MEDICAID ==
[~2022-04-04] VITALS: Ht 160 cm; Wt 95.2 kg
[~2022-04-04 18:30] MED LIST changes: +METH-732 PO
--- NOTE | 2022-04-04 18:55 | ED Back Pain ---
General Chief Complaint: Back Problems Stated Complaint: BACK PAIN Nursing Triage Note: PT PRESENTS TO ED WITH COMPLAINTS OF LOW BACK PAIN SINCE 04/01/22. 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 Source of Information: Patient Exam Limitations: No Limitations History of Present Illness Date Seen by Provider: Apr 04, 2022 Time Seen by Provider: 18:52 Initial Comments 56-year-old female with history of longstanding chronic back pain for which she takes tramadol presents to the emergency department for worsening of her back pain. She states her boyfriend is in [facility] in [place] she is made at least 5 trips back and forth in the last 7 days. She feels this is aggravated her back pain. No new trauma. Pain is dull throbbing in her low back diffusely. She does have a history of remote back surgery and was told that she might need back surgery once again. She was actually scheduled for treatment for her back today but was unable to get there due to her boyfriend being in the hospital. She denies any lower extremity weakness numbness or tingling. No saddle anesthesia. No loss of bowel or bladder control. Allergies and Home Medications Allergies Coded Allergies: Penicillins (Verified Allergy, Unknown, 03/07/21) Sulfa (Sulfonamide Antibiotics) (Verified Allergy, Unknown, 03/07/21) acetaminophen (Verified Allergy, Unknown, 06/16/21) cephalexin (Verified Allergy, Unknown, 06/16/21) codeine (Verified Allergy, Unknown, 03/07/21) erythromycin base (Verified Allergy, Unknown, 03/07/21) hydromorphone (Verified Allergy, Unknown, 06/07/21) meperidine (Verified Allergy, Unknown, 03/07/21) oxycodone (Verified Allergy, Unknown, 03/07/21) pregabalin (Verified Allergy, Unknown, 06/16/21) propoxyphene (Verified Allergy, Unknown, 03/07/21) Patient Home Medication List Home Medication List Reviewed: Yes Albuterol Sulfate (Proair Hfa) 1 Puff Puff, 2 PUFF IH UD, (Reported) Entered as Reported by: MCKENZIE PARRA on 06/07/21 1117 Aspirin (Aspirin) 81 Mg Tab.chew, 81 MG PO DAILY, (Reported) Entered as Reported by: MCKENZIE PARRA on 06/07/21 1150 Atorvastatin Calcium (Atorvastatin Calcium) 10 Mg Tablet, 10 MG PO HS, (Reported) Entered as Reported by: MCKENZIE PARRA on 06/07/21 1111 Cariprazine Hydrochloride (Vraylar) 1.5 Mg Capsule, 1.5 MG PO UD, (Reported) Entered as Reported by: MCKENZIE PARRA on 06/07/21 1150 Doxepin HCl (Doxepin HCl) 25 Mg Capsule, 25 MG PO HS, (Reported) Entered as Reported by: MCKENZIE PARRA on 07/25/21 1112 Fluoxetine HCl (Prozac) 20 Mg Capsule, 20 MG PO DAILY, (Reported) Entered as Reported by: MCKENZIE PARRA on 06/07/21 115 Hydroxyzine HCl (Hydroxyzine HCl) 10 Mg Tablet, 10 MG PO DAILY PRN for SLEEP, (Reported) Entered as Reported by: MCKENZIE PARRA on 06/07/21 1111 Lamotrigine (Lamotrigine ER) 300 Mg Tab.er.24, 300 MG PO DAILY, (Reported) Entered as Reported by: MCKENZIE PARRA on 07/25/21 1112 Lisinopril (Lisinopril) 2.5 Mg Tablet, 10 MG PO DAILY, (Reported) Entered as Reported by: MCKENZIE PARRA on 06/07/21 115 Meloxicam (Mobic) 15 Mg Tablet, 15 MG PO DAILY, (Reported) Entered as Reported by: MCKENZIE PARRA on 06/07/21 1150 Metformin HCl (Metformin HCl ER) 1,000 Mg Tab.er.24, 1,000 MG PO BID, (Reported) Entered as Reported by: MCKENZIE PARRA on 06/07/21 115 Methocarbamol (Methocarbamol) 750 Mg Tablet, 750 MG PO Q6-8HR Prescribed by: NILESH ADAMS on 03/04/22 1101 Metoprolol Succinate (Metoprolol Succinate) 50 Mg Tab.er.24h, 50 MG PO DAILY, (Reported) Entered as Reported by: MCKENZIE PARRA on 06/07/21 115 Multivitamin with Minerals (Multiple Vitamin) 1 Each Tablet, 1 EACH PO DAILY, (Reported) Entered as Reported by: MCKENZIE PARRA on 06/07/21 1150 Ondansetron (Ondansetron Odt) 4 Mg Tab.rapdis, 4 MG PO Q4H Prescribed by: IRAM RONQUILLO on 12/02/21 192 Pantoprazole Sodium (Pantoprazole Sodium) 40 Mg Tablet.dr, 40 MG PO BID, (Reported) Entered as Reported by: MCKENZIE PARRA on 06/07/21 115 Potassium Chloride (Potassium Chloride) 20 Meq Tablet.er, 20 MEQ PO TID, (Reported) Entered as Reported by: MCKENZIE PARRA on 06/07/21 111 Ropinirole HCl (Ropinirole HCl) 3 Mg Tablet, 3 MG PO DAILY, (Reported) Entered as Reported by: MCKENZIE PARRA on 06/07/21 115 Topiramate (Topiramate) 100 Mg Tablet, 100 MG PO BID, (Reported) Entered as Reported by: MCKENZIE PARRA on 06/07/21 111 Review of Systems Constitutional: no symptoms reported EENTM: no symptoms reported Respiratory: no symptoms reported Cardiovascular: no symptoms reported Gastrointestinal: no symptoms reported Genitourinary: no symptoms reported Musculoskeletal: back pain Skin: no symptoms reported Psychiatric/Neurological: No Symptoms Reported Past Fogjyot-Klhyru-Ziuxqr Hx Patient Social History Tobacco Use?: No Smoking Status: Former Smoker Substance use?: No Alcohol Use?: Yes Alcohol Frequency: Once in a while Pt feels they are or have been: No Immunizations Up To Date Tetanus Booster (TDap): Less than 5yrs First/Initial COVID19 Vaccinat: 07/2020 Second COVID19 Vaccination Leon: 09/2020 Third COVID19 Vaccination Date: 06/2021 Seasonal Allergies Seasonal Allergies: Yes Past Medical History Surgery/Hospitalization HX: PMH;DM, RESTLESS LEG SYNDROME, DEPRESSION, ANIXETY, BIPOLAR. SURGERY;ROTATOR CUFF , HYST. AND APPENDECTOMY 1989, LT KNEE SCOPE 05/2021, GALLBLADDER 2002, NECK FUSION 03/2011, BACK FUSION 06/2012. 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, Tubal Ligation Genitourinary: Yes (kidneys shut down in 2015) Kidney Infection, Bladder Infection Gastrointestinal: Yes Gastroesophageal Reflux, Gall Bladder Disease, Irritable Bowel Musculoskeletal: Yes (rls, sacral joint damage, osteoarthritis, rhabdomyolosis, cervical myelopat) Arthritis, Fibromyalgia, Chronic Back Pain Endocrine: Yes Diabetes, Non-Insulin dep HEENT: Yes Cataract, Macular Degeneration Hearing Impairment: Hard of Hearing, Bilateral Hearing Aide Cancer: No Psychosocial: Yes (mdd, nataly, borderline personality, panic disorder) Anxiety, PTSD, Bipolar, Personality Disorder, Depression Integumentary: No Blood Disorders: Yes (Anemia) Family Medical History No Pertinent Family Hx SOCIAL HISTORY: SMOKES 1-2 PPD ETOH--HISTORY OF HEAVY USE, NOW ONLY OCCASIONAL USE, BUT HEAVY WHEN SHE DOES DRINK DENIES DRUG USE Physical Exam Vital Signs Vital Signs - First Documented 04/04/22 18:39 Temp 37.3 Pulse 70 Resp 18 B/P (MAP) 178/94 (122) Pulse Ox 97 Capillary Refill : Less Than 3 Seconds Height, Weight, BMI Height: '" Weight: lbs. oz. kg; 37.00 BMI Method: General Appearance: No Apparent Distress, WD/WN HEENT: Normal ENT Inspection, Pharynx Normal Neck: Normal Inspection, Non Tender, Supple Cardiovascular: Regular Rate, Rhythm, No Edema, No Gallop, No Murmur, Normal Peripheral Pulses Respiratory: Chest Non Tender, Lungs Clear, Normal Breath Sounds, No Accessory Muscle Use, No Respiratory Distress Gastrointestinal: Normal Bowel Sounds, No Organomegaly, No Pulsatile Mass, Non Tender, Soft Back: Vertebral Tenderness (Tenderness palpation mid lumbar spine and diffusely down the spine, starts at about L2 and ends about L5-S1 region. No step-offs or deformity. No skin changes.) Extremity: Normal Capillary Refill, Normal Inspection, Normal Range of Motion, Non Tender, No Calf Tenderness Neurologic/Psychiatric: Alert, Oriented x3, No Motor/Sensory Deficits Skin: Normal Color, Warm/Dry Progress/Results/Core Measures Results/Orders My Orders Orders - TRINI COX DO Ketorolac Injection (Toradol Injection) (04/04/22 19:00) Orphenadrine Inj (Ed Only) (Norflex Inje (04/04/22 19:00) Medications Given in ED Current Medications Medications Dose Ordered Sig/Reagan Route Start Time Stop Time Status Last Admin Dose Admin Ketorolac Tromethamine 30 mg ONCE ONCE IM 04/04/22 19:00 04/04/22 19:01 DC 04/04/22 19:00 30 MG Orphenadrine Citrate 60 mg ONCE ONCE IM 04/04/22 19:00 04/04/22 19:01 DC 04/04/22 19:01 60 MG Vital Signs/I&O 04/04/22 18:39 Temp 37.3 Pulse 70 Resp 18 B/P (MAP) 178/94 (122) Pulse Ox 97 Blood Pressure Mean: 122 Departure Communication (Admissions) Patient is hemodynamically stable with no red flag symptoms. She is feeling better with the provided treatments here in the emergency department requesting to leave. Discharged home with close follow-up. Questions were sought and answered she is comfortable agreeable current plan of care. Impression Primary Impression: Back pain Qualified Codes: M54.50 - Low back pain, unspecified; G89.29 - Other chronic pain Disposition: HOME, SELF-CARE Condition: Stable Departure-Patient Inst. Referrals: ALECIA MOORE DO (PCP/Family) Primary Care Physician Patient Instructions: Low Back Pain (DC) Add. Discharge Instructions: Take tramadol as previously prescribed. Keep your appointments with your back pain specialists as able. Return to the emergency department for any severe concerns All discharge instructions reviewed with patient and/or family. Voiced understanding. TRINI COX DO Apr 04, 2022 18:55
[2022-04-04] MEDS ORDERED: ORPHENADRINE 60 MG/2 ML (NORFLEX) AMP (ED ONLY) IM ONE (19:00)
[2022-04-04] MEDS ORDERED: KETOROLAC 60 MG/2 ML VIAL IM ONE (19:00)
[2022-04-04 19:35] VITALS: BP 150/94
== END 2022-04-04 19:36 | disposition home or self-care (01) ==
LOC: EDUNIT# 18:30 → ER 18:31
DX: M54.50 Low back pain, unspecified (principal); Z87.891 Personal history of nicotine dependence; Z98.890 Other specified postprocedural states; Z98.1 Arthrodesis status
CPT/HCPCS: 99284

== ENCOUNTER → 2022-05-04 | Outpatient (CLI) | payer MEDICARE, MEDICAID | LOC: CARD 12:29 | PROVIDERS: ATTEND Internal Medicine Cardiovascular Disease | DX: I51.7 Cardiomegaly (principal) | CPT/HCPCS: 93306 ==

== ENCOUNTER 2022-08-08 20:03 | Outpatient (CLI) | payer MEDICARE, MEDICAID ==
[~2022-08-08 20:03] MED LIST changes: +ALBU8.5H6 IH; -RT-ALBUINH IH
== END 2022-08-09 05:30 | disposition home or self-care (01) ==
LOC: SLEEP 20:03
PROVIDERS: ATTEND Pediatrics
DX: G47.33 Obstructive sleep apnea (adult) (pediatric) (principal); I10 Essential (primary) hypertension; G47.10 Hypersomnia, unspecified; G47.61 Periodic limb movement disorder; R06.83 Snoring
CPT/HCPCS: 95810

== ENCOUNTER 2022-09-26 05:43 | Outpatient (CLI) | payer MEDICARE, MEDICAID ==
[~2022-09-26] VITALS: Ht 160 cm; Wt 95.3 kg
[2022-09-26] MEDS ORDERED: GABA-490 PO (14:38)
[2022-09-26] MEDS ORDERED: DULA1.5P2 SQ (14:38)
[2022-09-26] MEDS ORDERED: AMLO-250 PO (14:38)
[2022-09-26] MEDS ORDERED: SUCR1TAB36 PO (14:38)
[2022-09-26] MEDS ORDERED: TRAZ-227 PO (14:38)
[2022-09-26] MEDS ORDERED: LISI1TAB48 PO (14:38)
== END 2022-09-26 14:41 | disposition home or self-care (01) ==
LOC: PREOP 05:43
PROVIDERS: ATTEND Surgery
DX: Z01.818 Encounter for other preprocedural examination (principal)

== ENCOUNTER 2022-10-01 10:36 | Day surgery (SDC) | payer MEDICARE, MEDICAID ==
[~2022-10-01] VITALS: Ht 160 cm; Wt 95.3 kg
[~2022-10-01 10:36] MED LIST changes: +AMLO-250 PO; +DULA1.5P2 SQ; +GABA-490 PO; +LISI1TAB48 PO; +SUCR1TAB36 PO; +TRAZ-227 PO
[2022-10-01] MEDS ORDERED: LACTATED RINGERS 1,000 ML IV STA (10:38)
[2022-10-01] MEDS ORDERED: HURRICAINE EXT TUBE (BENZOCAINE) XX PRN (10:45)
[2022-10-01 10:55] VITALS: BP 148/83
--- NOTE | 2022-10-01 11:00 | Progress Note-Pre Operative ---
Pre-Operative Progress Note Date of Available H&P: Sep 25, 2022 Date H&P Reviewed: Oct 01, 2022 Time H&P Reviewed: 11:00 History & Physical: H&P Reviewed, Patient Examed, No changes noted Pre-Operative Diagnosis: Epigastric pain RUT MENA DO Oct 01, 2022 11:00
[2022-10-01] MEDS ORDERED: PROPOFOL INJECTION 50 ML IV ONE (11:36)
[2022-10-01] MEDS ORDERED: MIDAZOLAM 2 MG/2 ML (VERSED) VIAL ONE (11:36)
[2022-10-01 11:55] VITALS: BP 128/69
--- NOTE | 2022-10-01 11:56 | Progress Note-Post Operative ---
Post-Operative Progess Note Surgeon (s)/Fire Watcher (s) Surgeon RUT MENA DO Fire Watcher: none Pre-Operative Diagnosis Epigastric pain Post-Operative Diagnosis Gastritis Esophagitis Procedure & Operative Findings Date of Procedure 10/01/22 Procedure Performed/Findings EGD with bx PROCEDURE NOTE: After informed consent was obtained, the patient was brought to the endoscopy suite, placed in bed in left lateral decubitus position. She was administered IV sedation by the CLOTH PRINTER who then monitored vitals the entire time, heart rate, blood pressure and pulse ox and the scope was inserted down the mouth through the esophagus into the stomach. On the way down, noted some mild esophagitis, took a picture, pushed into the stomach, pushed past the antrum into the duodenum. Duodenum looked good. Pulled back and did a biopsy of antrum, then retroflexed the scope, did not see hiatal hernia, took a picture of and then pulled the scope into the GE junction and then did a biopsy of the GE junction. Pushed the scope back into the stomach, suctioned all the air out of the stomach. At this point pulled the scope up the esophagus and out the mouth. The patient tolerated the procedure, and she recovered in endoscopy suite. Anesthesia Type IV sedation by CLOTH PRINTER Estimated Blood Loss Estimated blood loss (mL): scant Specimens/Packing Specimens Removed antral bx Body of stomach bx RUT MENA DO Oct 01, 2022 11:56
--- NOTE | 2022-10-01 11:57 | Endoscopy Discharge Instruct ---
Endo Procedure/Findings Findings 1.: Gastritis 2.: Other Findings (Esophagitis) Discharge Instructions - Activity: You might feel a little sleepy until tomorrow. This is due to the medicine you received to relax you. Until tomorrow, you should: NOT drive a car, operate machinery or power tools. NOT drink any alcoholic beverages. NOT make any important decisions or sign importortant papers. Do not return to work until tomorrow, unless otherwise instructed. Resume previous activities tomorrow. Diet: Start by taking liquids. If you tolerate liquids, advance to solid food. 1.: EGD in 3 years Notify Physician - If you experience excessive bleeding, unusual abdominal pain, fever, or chest pain, contact your doctor immediately. RUT MENA DO Oct 01, 2022 11:57
[2022-10-01 12:00] VITALS: BP 129/72
--- NOTE | 2022-10-01 12:13 | Anesthesia-General Post-Op ---
MAC Patient Condition Mental Status/LOC: Same as Preop Cardiovascular: Satisfactory Nausea/Vomiting: Absent Respiratory: Satisfactory Pain: Controlled Complications: Absent Post Op Complications Complications None Follow Up Care/Instructions Patient Instructions None needed. Anesthesiology Discharge Order Discharge Order Patient is doing well, no complaints, stable vital signs, no apparent adverse anesthesia problems. No complications reported per nursing. ISAIAS NICHOLSON CRNA Oct 01, 2022 12:13
[2022-10-01 12:20] VITALS: BP 140/86
[2022-10-01 12:32] VITALS: BP 140/86
== END 2022-10-01 12:32 | disposition home or self-care (01) ==
LOC: ENDO 10:36
PROVIDERS: ATTEND Surgery
DX: K29.70 Gastritis, unspecified, without bleeding (principal); K21.00 Gastro-esophageal reflux disease with esophagitis, without bleeding; K31.89 Other diseases of stomach and duodenum; E11.40 Type 2 diabetes mellitus with diabetic neuropathy, unspecified; E66.9 Obesity, unspecified; Z68.37 Body mass index [BMI] 37.0-37.9, adult; Z79.84 Long term (current) use of oral hypoglycemic drugs; Z79.85 Long-term (current) use of injectable non-insulin antidiabetic drugs; F17.200 Nicotine dependence, unspecified, uncomplicated; Z79.899 Other long term (current) drug therapy; M19.90 Unspecified osteoarthritis, unspecified site
CPT/HCPCS: 82947

== ENCOUNTER 2022-10-10 15:16 | Emergency (ER) | payer MEDICARE, MEDICAID ==
[~2022-10-10] VITALS: Ht 154 cm; Wt 95.0 kg
[2022-10-10] MEDS ORDERED: ORPHENADRINE 60 MG/2 ML (NORFLEX) AMP (ED ONLY) IM ONE (16:00)
[2022-10-10] MEDS ORDERED: KETOROLAC 30 MG/ML VIAL IVP ONE (16:00)
[2022-10-10] MEDS ORDERED: PROCHLORPERAZINE 10 MG/2ML INJ (COMPAZINE) IV ONE (16:00)
--- NOTE | 2022-10-10 16:05 | ED Back Pain ---
General Chief Complaint: Back Problems Stated Complaint: BACK PAIN Nursing Triage Note: ARRIVED VIA AMB TO TRIAGE WITH COMPLAINTS OF BACK PAIN. HURT IT OVER A WEEK AGO AND TOOK THE WEEK OFF OF WORK BUT SATURDAY WAS PACKING BOXES AND HURT IT AGAIN. REQUESTS THE MIGRAINE COCKTAIL BECAUSE THAT IS WHAT WORKS FOR HER. Source of Information: Patient Exam Limitations: No Limitations History of Present Illness Date Seen by Provider: Oct 10, 2022 Time Seen by Provider: 16:02 Initial Comments Patient is a 57-year-old female who presents ED with low back pain. Pain start ed few weeks ago. She states she was lifting boxes felt a sharp pain across her lower back. Described as tight and radiating up. She took off work did get some relief until Saturday when she lifts boxes and cleaning the wall. She started developing the pain in the back similar location. She denies of any falls, bowel or urine incontinence, saddle paresthesia, lower extremity wea kness. She has been taken Tylenol and lidocaine patches without much improvement. She denies of any urinary symptoms. She states she has had similar pain in the past typically gets a migraine cocktail with improvement of symptoms. She denies fever, chills, nausea, vomiting, diarrhea, chest pain, shortness of breath. Denies of any drug use. Denies of any falls. Allergies and Home Medications Allergies Coded Allergies: Penicillins (Verified Allergy, Unknown, 03/07/21) Sulfa (Sulfonamide Antibiotics) (Verified Allergy, Unknown, 03/07/21) acetaminophen (Verified Allergy, Unknown, 06/16/21) cephalexin (Verified Allergy, Unknown, 06/16/21) codeine (Verified Allergy, Unknown, 03/07/21) erythromycin base (Verified Allergy, Unknown, 03/07/21) hydromorphone (Verified Allergy, Unknown, 06/07/21) meperidine (Verified Allergy, Unknown, 03/07/21) oxycodone (Verified Allergy, Unknown, 03/07/21) pregabalin (Verified Allergy, Unknown, 06/16/21) propoxyphene (Verified Allergy, Unknown, 03/07/21) Patient Home Medication List Home Medication List Reviewed: Yes Amlodipine Besylate (Amlodipine Besylate) 5 Mg Tablet, 5 MG PO DAILY, (Reported) Entered as Reported by: AGUSTIN JAVIER on 09/26/22 1438 Aspirin (Aspirin) 81 Mg Tab.chew, 81 MG PO DAILY, (Reported) Entered as Reported by: MCKENZIE PARRA on 06/07/21 115 Atorvastatin Calcium (Atorvastatin Calcium) 10 Mg Tablet, 10 MG PO HS, (Reported) Entered as Reported by: MCKENZIE PARRA on 06/07/21 1111 Cariprazine Hydrochloride (Vraylar) 1.5 Mg Capsule, 1.5 MG PO UD, (Reported) Entered as Reported by: MCKENZIE PARRA on 06/07/21 115 Dulaglutide (Trulicity) 1.5 Mg/0.5 Ml Pen.injctr, 1.5 MG SQ WEEK, (Reported) Entered as Reported by: AGUSTIN JAVIER on 09/26/22 143 Gabapentin (Gabapentin) 400 Mg Capsule, 300 MG PO HS, (Reported) Entered as Reported by: AGUSTIN JAVIER on 09/26/22 1438 Lamotrigine (Lamotrigine ER) 300 Mg Tab.er.24, 300 MG PO DAILY, (Reported) Entered as Reported by: MCKENZIE PARRA on 07/25/21 111 Lisinopril/Hydrochlorothiazide (Lisinopril-Hctz 20-25 mg Tab) 20 Mg-25 Mg Tablet, 1 EACH PO DAILY, (Reported) Entered as Reported by: AGUSTIN JAVIER on 09/26/22 143 Meloxicam (Mobic) 15 Mg Tablet, 15 MG PO DAILY, (Reported) Entered as Reported by: MCKENZIE PARRA on 06/07/21 115 Metformin HCl (Metformin HCl ER) 1,000 Mg Tab.er.24, 1,000 MG PO BID, (Reported) Entered as Reported by: MCKENZIE PARRA on 06/07/21 115 Metoprolol Succinate (Metoprolol Succinate) 50 Mg Tab.er.24h, 50 MG PO DAILY, (Reported) Entered as Reported by: MCKENZIE PARRA on 06/07/21 115 Pantoprazole Sodium (Pantoprazole Sodium) 40 Mg Tablet.dr, 40 MG PO BID, (Reported) Entered as Reported by: MCKENZIE PARRA on 06/07/21 1150 Potassium Chloride (Potassium Chloride) 20 Meq Tablet.er, 20 MEQ PO TID, (Reported) Entered as Reported by: MCKENZIE PARRA on 06/07/21 1117 Sucralfate (Carafate) 1 Gram Tablet, 1 GM PO UD, (Reported) Entered as Reported by: AGUSTIN JAVIER on 09/26/22 1438 Topiramate (Topiramate) 100 Mg Tablet, 100 MG PO BID, (Reported) Entered as Reported by: MCKENZIE Cassidy AIDA on 06/07/21 1117 Trazodone HCl (Trazodone HCl) 100 Mg Tablet, 100 MG PO HS, (Reported) Entered as Reported by: AGUSTIN JAVIER on 09/26/22 1438 Review of Systems Constitutional: No chills, No diaphoresis, No fever, No malaise, No weakness EENTM: No ear pain, No blurred vision, No double vision, No dental problems Respiratory: No cough, No dyspnea on exertion Cardiovascular: No chest pain Gastrointestinal: No abdominal pain, No diarrhea, No nausea, No vomiting Genitourinary: No decreased output, No discharge Musculoskeletal: back pain, joint pain; No joint swelling, No muscle pain, No muscle stiffness Skin: No change in color, No change in hair/nails All Other Systems Reviewed Negative Unless Noted: Yes Past Ngjbufc-Mbtwpg-Gawnfo Hx Patient Social History Tobacco Use?: Yes Smoking Status: Current Everyday Smoker Substance use?: No Alcohol Use?: Yes Alcohol Frequency: Once in a while Immunizations Up To Date Tetanus Booster (TDap): Unknown First/Initial COVID19 Vaccinat: 07/2020 Second COVID19 Vaccination Leon: 09/2020 Third COVID19 Vaccination Date: 06/2021 Seasonal Allergies Seasonal Allergies: Yes Past Medical History Surgery/Hospitalization HX: PMH;DM, RESTLESS LEG SYNDROME, DEPRESSION, ANIXETY, BIPOLAR. SURGERY;ROTATOR CUFF , HYST. AND APPENDECTOMY 1989, LT KNEE SCOPE 05/2021, GALLBLADDER 2002, NECK FUSION 03/2011, BACK FUSION 06/2012. 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, Tubal Ligation Genitourinary: Yes (kidneys shut down in 2015) Kidney Infection, Bladder Infection Gastrointestinal: Yes Gastroesophageal Reflux, Gall Bladder Disease, Irritable Bowel Musculoskeletal: Yes (rls, sacral joint damage, osteoarthritis, rhabdomyolosis, cervical myelopat) Arthritis, Fibromyalgia, Chronic Back Pain Endocrine: Yes Diabetes, Non-Insulin dep HEENT: Yes Cataract, Macular Degeneration Hearing Impairment: Hard of Hearing, Bilateral Hearing Aide Cancer: No Psychosocial: Yes (mdd, nataly, borderline personality, panic disorder) Anxiety, PTSD, Bipolar, Personality Disorder, Depression Integumentary: No Blood Disorders: Yes (Anemia) Family Medical History No Pertinent Family Hx SOCIAL HISTORY: SMOKES 1-2 PPD ETOH--HISTORY OF HEAVY USE, NOW ONLY OCCASIONAL USE, BUT HEAVY WHEN SHE DOES DRINK DENIES DRUG USE Physical Exam Vital Signs Vital Signs - First Documented 10/10/22 15:31 Temp 36.3 Pulse 73 Resp 16 B/P (MAP) 147/84 (105) Pulse Ox 98 O2 Delivery OxyMask Capillary Refill : Less Than 3 Seconds Height, Weight, BMI Height: '" Weight: lbs. oz. kg; 40.00 BMI Method: General Appearance: No Apparent Distress, WD/WN HEENT: PERRL/EOMI, TMs Normal, Normal ENT Inspection, Pharynx Normal Neck: Full Range of Motion, Normal Inspection, Non Tender, Supple Cardiovascular: Regular Rate, Rhythm, No Edema, No Gallop, No JVD, No Murmur Respiratory: Chest Non Tender, Lungs Clear, Normal Breath Sounds, No Accessory Muscle Use, No Respiratory Distress Gastrointestinal: Normal Bowel Sounds, No Organomegaly, No Pulsatile Mass, Non Tender, Soft Back: Vertebral Tenderness (Lateral lumbar paraspinal muscle tenderness. No lumbar or thoracic midline tenderness. No swelling, erythema or ecchymosis. No CVA tenderness) Neurologic/Psychiatric: Alert, Oriented x3, No Motor/Sensory Deficits, Normal Mood/Affect, hot saw helper II-XII Norm as Tested Skin: Normal Color Progress/Results/Core Measures Results/Orders My Orders Orders - ADE ARVIZU Ketorolac Injection (Toradol Injection) (10/10/22 16:00) Orphenadrine Inj (Ed Only) (Norflex Inje (10/10/22 16:00) Dexamethasone Injection (Decadron Injec (10/10/22 16:00) Prochlorperazine Injection (Compazine In (10/10/22 16:00) Medications Given in ED Current Medications Medications Dose Ordered Sig/Reagan Route Start Time Stop Time Status Last Admin Dose Admin Dexamethasone Sodium Phosphate 4 mg ONCE ONCE IV 10/10/22 16:00 10/10/22 16:02 DC 10/10/22 16:13 4 MG Ketorolac Tromethamine 30 mg ONCE ONCE IVP 10/10/22 16:00 10/10/22 16:02 DC 10/10/22 16:14 30 MG Orphenadrine Citrate 60 mg ONCE ONCE IM 10/10/22 16:00 10/10/22 16:02 DC 10/10/22 16:17 60 MG Prochlorperazine Edisylate 10 mg ONCE ONCE IV 10/10/22 16:00 10/10/22 16:02 DC 10/10/22 16:13 10 MG Vital Signs/I&O 10/10/22 15:31 Temp 36.3 Pulse 73 Resp 16 B/P (MAP) 147/84 (105) Pulse Ox 98 O2 Delivery OxyMask Blood Pressure Mean: 105 Departure Communication (PCP) Reviewed previous ER visits, H&P, lab testing, medication. Patient with a history of low back pain. Patient states that she had episode where she picked some boxes up a few weeks ago causing back pain. She did get relief with rest and anti-inflammatories. Exacerbated the pain lifting on Saturday boxes and housework. Patient has no neurological red flag findings. She denies of any urinary symptoms. Patient is able to stand and bear weight. Lumbar paraspinal muscle tenderness without any lumbar or thoracic midline tenderness. Imaging was held at this time due to no neurological red flag findings. No urinary symptoms or CVA tenderness. She is requesting a cocktail of medication as this has helped in the past. Differential diagnosis of low back muscle strain, lumbar bulging disc, lumbar sprain. Patient was observed here in the ED after pain medication. Improvement of pain. Patient was requesting be discharged. Recommend lidocaine patches, anti-inflammatories and follow-up outpatient Kun with your primary care physician. Recommend PT. Return precautions were discussed with patient Impression Primary Impression: Back pain Disposition: HOME, SELF-CARE Condition: Stable Departure-Patient Inst. Decision time for Depature: 16:05 Referrals: MOORE,ALECIA V DO (PCP/Family) Primary Care Physician Patient Instructions: Low Back Pain (DC) Add. Discharge Instructions: Recommend rest, stretching, ice, lidocaine, anti-inflammatories. If any wo rsening symptoms return back to ED for further evaluation. Outpatient follow-up All discharge instructions reviewed with patient and/or family. Voiced understanding. ADE ARVIZU Oct 10, 2022 16:05
[2022-10-10 16:46] VITALS: BP 112/75
== END 2022-10-10 16:46 | disposition home or self-care (01) ==
LOC: EDUNIT# 15:16 → ER 15:17
DX: M54.50 Low back pain, unspecified (principal); F17.210 Nicotine dependence, cigarettes, uncomplicated; X50.0XXA Overexertion from strenuous movement or load, initial encounter; Y92.59 Other trade areas as the place of occurrence of the external cause; Y99.0 Civilian activity done for income or pay